=== PATIENT | female | born 1940 | race Caucasian/White ===

== ENCOUNTER 2024-06-08 16:02 | Emergency (ER) | payer MEDICARE, SELFPAY ==
[2024-06-08 16:11] VITALS: BP 141/72; PULSE 87; RESP 15; TEMP 36.4; O2SAT 96
--- NOTE | 2024-06-08 17:47 | ED.GENADULT ---
HPI - General Adult General Chief complaint: Dizziness Stated complaint: dizziness, Time Seen by Provider: 06/08/24 17:25 History of Present Illness HPI narrative: Patient is an 83-year-old female who presents ER with dizziness. Woke up from nap had sudden spinning. Makes her nauseous. Worse when she looks up to look at the TV. Has history of vertigo that was related from going from sitting to standing but this seems more intense. No chest pain or chest pressure. No focal weakness or numbness in arm or leg. Denies ringing in the ear. Related Data Allergies Allergy/AdvReac Type Severity Reaction Status Date / Time No Known Allergies Allergy Verified 06/08/24 17:49 Review of Systems Review of Systems: All systems reviewed & are unremarkable except as noted in HPI and below Constitutional: Constitutional: Reports no additional constitutional complaints ENT: Reports system reviewed and no additional complaints, except as documented Gastrointestinal: Gastrointestinal: Reports no additional gastrointestinal complaints Neurologic: Reports system reviewed and no additional complaints, except as documented PMFSH Surgical History Surgical History (Updated 06/08/24 @ 17:49 by Mynor Villanueva MD) History of carpal tunnel surgery History of hysterectomy Exam Narrative: GENERAL: Well-appearing, well-nourished, and in no acute distress. HEAD: Normocephalic, atraumatic. EYES: PERRL and EOMI. ENT: Mucous membranes moist. Cerumen impaction bilaterally. TMs normal after removal. CHEST: Clear to auscultation. No respiratory distress. HEART: Regular rate and rhythm. Normal peripheral pulses. EXTREMITIES: Normal range of motion. No edema. NEURO: No focal deficits. Alert and oriented x3. PSYCH: Normal mood and affect. Course Course Emergency Course: Cerumen removed with ear loop and warm water. Received meclizine. Patient is feeling improved. Ambulates with a steady gait. Vital Signs Vital signs: Vital Signs Temperature 97.6 F 06/08/24 16:11 Pulse Rate 87 06/08/24 16:11 Respiratory Rate 15 06/08/24 16:11 Blood Pressure 141/72 H 06/08/24 16:11 Pulse Oximetry 96 06/08/24 16:11 Temperature 97.6 F 06/08/24 16:11 Pulse Rate 68 06/08/24 17:49 Respiratory Rate 16 06/08/24 17:49 Blood Pressure 107/62 06/08/24 17:49 Pulse Oximetry 98 06/08/24 17:49 Procedures Ear Wax Removal Both Ears: Ear Wax Removal Date: 06/08/24 Ear Wax Removal Time: 17:48 Cerumenolytic Used: other (Warm tap water) Results: Re-examined: cerumen removed completely TM Examination: TM(s) intact, normal appearance Ear Canal Exam: atraumatic Patient Tolerated Procedure: well Complications: no problems Technique: ear canal irrigated and ear canal curetted Medical Decision Making Vital Signs Vital Signs: Vital Signs Temperature 97.6 F 06/08/24 16:11 Pulse Rate 87 06/08/24 16:11 Respiratory Rate 15 06/08/24 16:11 Blood Pressure 141/72 H 06/08/24 16:11 Pulse Oximetry 96 06/08/24 16:11 Temperature 97.6 F 06/08/24 16:11 Pulse Rate 68 06/08/24 17:49 Respiratory Rate 16 06/08/24 17:49 Blood Pressure 107/62 06/08/24 17:49 Pulse Oximetry 98 06/08/24 17:49 Discharge Plan Discharge Clinical Impression: Bilateral impacted cerumen, Vertigo Patient Disposition: Home, Self-Care Condition: Stable Instructions: Vertigo (ED) Additional Instructions: Return ER if you have fever 100.4? F, you cannot keep down food water, you lose consciousness, or have additional concerns. Patient Language: Kyrgyz Prescriptions: New meclizine 12.5 mg tablet 12.5 mg PO TID PRN (Reason: dizziness) Qty: 14 0RF Debrox 6.5 % drops 5 drp EACH EAR Q12H 4 Days Qty: 15 0RF Follow-up/Referrals: PHYSICIAN,FIBER PRODUCT CUTTING MACHINE OPERATOR [Primary Care Provider] - Km Nava MD [Physician] - 1 Week
[2024-06-08 17:49] VITALS: BP 107/62; PULSE 68; RESP 16; O2SAT 98
--- OUTSIDE RECORDS SUMMARY | 2024-06-08 18:19 | XMS_ITS | Continuity of Care Document ---
Author Organization [facility] Address [address] [place] [address] Phone Care Team Providers Care Line Out Worker Name Role Phone Sakshi Lazar MD Unavailable Unavailabl e Allergies, Adverse Reactions, Alerts Substance Reaction Status Criticality No Known Allergies Active No Inform ation Medications Medication Instructions Dosage Effective Dates (start - stop) Status Comments Arnuity Ellipta 100 mcg/actuation powder for inhalation inhale 1 puff by inhalation route every day at the same time each day 100 MCG - Active QVAR REDIHALER 40MCG ORALINH (120) INHALE 2 PUFFS BY MOUTH TWICE DAILY - Active FLOVENT HFA 44MCG ORAL INH 120INH INHALE 2 PUFFS BY MOUTH TWICE DAILY - Active azelastine 137 mcg (0.1 %) nasal spray aerosol spray 1 spray by intranasal route 2 times every day in each nostril 1 spray - Active ALBUTEROL HFA INH (200 PUFFS)8.5GM INHALE 2 PUFFS BY MOUTH EVERY 4 TO 6 HOURS NEEDED - Active ORTIKOS (unknown strength) take 1 capsule by oral route every day Not Available - Active VITAMIN D3 (unknown strength) Not Available - Active IMPOYZ (unknown strength) apply by topical route 2 times every day a thin layer to the affected area(s) ; rub in gently and completely Not Available - Active Arnuity Ellipta 100 mcg/actuation powder for inhalation inhale 1 puff by inhalation route every day at the same time each day 100 MCG - No Longer Active Procedures Procedure Date BREATHING CAPACITY TEST OFFICE/OUTPATIENT VISIT EST OFFICE/OUTPATIENT VISIT EST OFFICE/OUTPATIENT VISIT EST OFFICE/OUTPATIENT VISIT EST OFFICE/OUTPATIENT VISIT EST OFFICE/OUTPATIENT VISIT EST BREATHING CAPACITY TEST EXHALED NITRIC OXIDE BIJAL OFFICE/OUTPATIENT VISIT EST PERCUT ALLERGY SKIN TESTS EVALUATE PT USE OF INHALER EXHALED NITRIC OXIDE BIJAL BREATHING CAPACITY TEST OFFICE/OUTPATIENT VISIT NEW Advance Directives Directive Yes / No Effective Date File Name No Information Encounters Encounter Description Practice Location Reason(s) For Visit Diagnoses Date Provider Providers Copied on Encounter [facility] , [address] [facility] [address], [place], [address], tel:[phone] [facility] No Information 4 Nagi Hamsa. [address], [place], [place], [id number]. tel:[phone] [facility] , [address] [facility] [address], [place], [address], [place] tel:[phone] [facility] No Information 4 Nagi Hamsa. [address], [place], [place], [id number]. tel:[phone] [facility] , [address] [place] [facility] [address], [place], [address], [place] tel:[phone] [facility] No Information 4 Nagi Hamsa. [address], [place], [place], [id number]. tel:[phone] OFFICE/OUTPA TIENT VISIT EST [facility] , [address] [place] [facility] [address], [place], [address], [place] tel:[phone] [facility] Follow up (chief complaint) Moderate persistent asthma, uncomplicatedA llergic reaction to inhaled pollenOther allergic rhinitis 4 Nagi Hamsa. [address], [place], [place], [id number]. tel:[phone] [facility] , [address], [place], [address], [place] tel:[phone] [facility] No Information 4 Nagi Hamsa. [address], [place], [place], [id number]. tel:[phone] OFFICE/OUTPA TIENT VISIT EST [facility] , [address], [place], [address], [place] tel:[phone] [facility] Follow up (chief complaint) Mild intermittent asthma without complicationAl lergic reaction to inhaled pollen 4 Nagi Hamsa. [address], [place], [place], [id number]. tel:[phone] OFFICE/OUTPA TIENT VISIT EST [facility] , [address], [place], [address], [place] tel:[phone] [facility] f/u (chief complaint) Other allergic rhinitisMild intermittent asthma without complicationVa ccine counseling 3 Nagi Hamsa. [address], [place], [place], [id number]. tel:[phone] OFFICE/OUTPA TIENT VISIT EST [facility] , [address], [place], [address], [place] tel:[phone] [facility] Follow up (chief complaint) Body mass index [BMI] 25.0-25.9, adultMild intermittent asthma without complicationVo sunni cord dysfunctionOth er allergic rhinitisAllerg ic reaction to inhaled pollen 3 Nagi Hamsa. [address], [place], [place], [id number]. tel:[phone] [facility] , [address], [place], [address], [place] tel:[phone] [facility] No Information 3 Nagi Hamsa. [address], [place], [place], [address]. tel:[phone] OFFICE/OUTPA TIENT VISIT EST [facility] , [address], [place], [address], [place] tel:[phone] [facility] f/u and refills (chief complaint) Mild intermittent asthma without complicationOt her allergic rhinitisVocal cord dysfunction Oct-0 - 2 Nagi Hamsa. [address], [place], [place], [id number]. tel:[phone] OFFICE/OUTPA TIENT VISIT EST [facility] , [address] , [place], [address], [place] tel:[phone] [facility] f/u (chief complaint) Mild intermittent asthma without complicationPo st-nasal drainageVocal cord dysfunction Sep-1 0- 1 Nagi Hamsa. [address], [place], [place], [id number]. tel:[phone] OFFICE/OUTPA TIENT VISIT EST [facility] , [address] , [place], [address], [place] tel:[phone] [facility] Annual check-up (chief complaint) Mild intermittent asthma without complicationCo ughPost-nasal drainageOther allergic rhinitisVocal cord dysfunction Oct-2 - 0 Nagi Hamsa. [address], [place], [place], [id number]. tel:[phone] [facility] , [address] , [place], [address], [place] tel:[phone] [facility] Allergic reaction to inhaled pollenOther allergic rhinitisMild intermittent asthma without complication Mar-0 - 0 Nagi Hamsa. [address], [place], [place], [address]. tel:[phone] OFFICE/OUTPA TIENT VISIT NEW [facility] , [address] , [place], [address], [place] tel:[phone] [facility] allergy evaluation (chief complaint) Mild intermittent asthma without complicationOt her allergic rhinitisAllerg ic reaction to inhaled pollen 0 Nagi Cantor. [address], [place], [place], [address]. tel:[phone] Family History Family Member Type Diagnosis Age At Onset Mother Problem (finding) cancer of colon Father Problem (finding) Lymphoma (Cause Of Deat h) Immunizations Vaccine Date Status Comments Influenza, quadrivalent, hig h dose, injectable, split virus, preservative free, 0.7 mL dose, Fluzone High-Dose Quad administered Source: Other Provider SARS-COV-2 (COVID-19) vaccin e, mRNA, spike protein, LNP, preservative free, 30 mcg/0.3mL dose (Pfizer) administered Note: all 4 ; Source : Other Provider SARS-COV-2 (COVID-19) vaccin e, mRNA, spike protein, LNP, preservative free, 30 mcg/0.3mL dose (Pfizer) administered Source: Other Provid er Influenza, quadrivalent, hig h dose, injectable, split virus, preservative free, 0.7 mL dose, Fluzone High-Dose Quad administered Source: Other Provider influenza, injectable, quadrivalent, (3 years or older) administered Source: Other Provider Pneumococcal, PCV-13 administered Source: Other Provider Pneumonia administered Source: Other P rovider Payers Payer name Insurance type Covered constitution party ID Authoriza tion(s) Medicare E2 OT [id number] AARP E2 OT [id number] Social History Type Description Quantity Date Captured Comments Sex Female Smoking Status No Information Chief Complaint And Reason For Visit No Information Reason For Referral Reason For Referral No Information History Of Present Illness Encounter Date Complaint History Of Prese nt Illness Follow up 82 year old jj ent seen for a telehealth on 25 April extremely worried because the flovent 44 ?g will be soon discontinued from the market. I sent her dry powder inhaler.arnuity, extremely concerned about it because her grandson told her it can cause more coughing. Patient currently is doing well. Sleeps well at night. There is no asthma problems. Good appetite. She's limited to what she eats because of a history of colitis, and the recent attack lost close to 10 pounds. she has been avoiding a lot of red meat and cured meat since she lives in a nursing home facility is limited to how much she can eat in the cafeteria and has been trying to cook. She has been exercising without any difficulty.She takes a deep breath. She sometimes coughs up, but it is a dry cough not affecting quality of life. Her main concern is about the dry powder inhaler. Follow up 82 year old jj ent here for her telehealth. Patient has been reluctant because of the pandemic. To travel and come to physicians office up-to-date with her influenza, Covid, RSV vaccine. Patient is extremely worried because she read in the news.flovent 44 g will be discontinued in the market. Her pharmacist has switched it to.arnuity in spite of her rinsing her mouth after use, she does not like the dry powder inhaler because it is leaving a taste in her mouth and she's afraid she is going to swallow something. This fear stems from a very recent G.I. problem for which she was in the hospital and was diagnosed with lymphocytic colitis and was asked to follow a very limited diet. She has not had any need for albuterol her rescue inhaler for the colitis patient is on an extended release budesonide tablet. Patient has become active walk around the house. No difficulty breathing no shortness of breath. She's extremely worried about me switching her medication which has kept her asthma under control. f/u This is a telehe alth visit for patient, overall she feels she is doing better. Patient has Flovent 44 g which has really helped and would like a refill. She is using it. As scheduled 2 puffs twice a day, remembers to rinse her mouth after use. Patient has absolutely no difficulty swallowing or changes in her voice. On this regimen, she has not needed the albuterol at all.With her previous visit, I had discontinued the montelukast, and she has felt no different.She also uses intranasal azelastine mainly as needed for symptoms of post, nasal drainage, and sinus congestion and that seems to be working.Recently, she has had a lot of G.I. symptoms and has been diagnosed with lymphocytic colitis. Treated with prednisone.This is the reason she could not get her pulmonary function test in the hospital, her primary care physician plans to send request.Recently, diagnosed with Covid overall is doing well, except she still has fatigue. Follow up Patient is here for a follow up. She was seen with symptoms of asthma, which according to her is doing very well. She is very regular with her 44 g Flovent, which she uses every single day, twice a day, she also remembers to rinse her mouth after use. She has a rescue inhaler with her that she has not needed in a very long time. She has the nasal spray Asselin, but she is also regular wet, using it twice a day, no bloody nose in winter.By allergy skin test, patient was allergic to dust, Tree, pollen and weed mix. She has a new primary care physician, up-to-date with her influenza vaccine and five Covid vaccines. Coughing if at all is very mild with mild postnasal drainage, sometimes she feels she has to constantly clear her throat. f/u and refills 81 year old jj ent last seen in a valuated approximately one year ago, is doing a telehealth because she is still uncomfortable post pandemic driving long distances and coming into public doctors offices. Overall she has been doing very well without any problems. Her asthma is considered as stable and under control. She learned out of her Flovent two weeks ago, prior to that she started using it once a day but immediately noticed she has needed her rescue inhaler. No nocturnal asthma.She has received her influenza vaccine for this year, she has received a total of four Covid vaccines. No changes in her allergies. Montelukast has worked so well for her that she would also like a refill. When I asked about side effects especially depression, anxiety and mood swings she admits she was not doing very well in summer but I attribute that to the pandemic and would like to continue with the montelukast.No bloody nose she is very regular with azelastine If she does not use it she feels congested. Sleep is good. Mild cough because she has no Flovent. Occasionally she takes Mucinex. I have not done the pulmonary function test in a very long time, patient states she will be seeing her primary care physician tomorrow. f/u Patient is here for a follow up, she was last seen approximately one year ago. She's very happy with the current regimen, no asthma like symptoms and the cough is gone. She is using her Flovent 44 g two puffs twice a day and rinse her mouth after use. She's also continuing 10 mg of montelukast and request a refill. She has no side effects from either. Her voice is hoarse but it is unrelated to the Flovent. 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 She does not sleep well but that is not related to her respiratory issues. She is just restless. She is up-to-date with her Covid vaccine and plans to get her influenza vaccine soon. Annual check-up this is a f/u - was last seen in June , after that she devolved low back pain- she was seen by an ortho and then by a neurosurgeon , she had surgery on December 08 - decompression and discectomy of lower lumbar area, and it helped a lot and the pain is better , she is currently in [facility] seen PCP , in november had blood work and all was normal She described her asthma as stable , controlled very well , she is very methodist about the flovent 44 mcg which she takes AM and PM , she was on and ran out of the Montelukast which she was tawing once at bed time, she has a cough -it is a dry cough , takes mucinex - cough does not affect her sleep .no chest tightness and she has some wheezing , she has no heart burn or indigestion she has an occasional , with weather changes , sinus pressure sense of smell is fine no bloody nose- was on a nasal spray , stopped it due to nose bleeds allergy evaluation here as she h as allergy issues and asthma in the past 2 years ,had them as a child was on SCIT and was fine for a long time, - cold, sinus infection and bronchitis she has asthma, symptoms include -night symptoms, chest tightness and difficulty breathing , cough is not a big concern, can have wheezing, no hospitalization, was treated with steroid , antibiotic , is on Flovent 44 mcg and proair - has not needed since 2018-nasal congestion , seasonal fall more than symptoms, can also has a runny nose, post nasal drainage , lately she has had sneezing and itchy and water eyes ,- symptoms are worse since the dog was introduced last jan 2019 , sneezing is worse - quit smoking 50 year sago , chest x ray last was done at PCP- normal - was diagnosed psoriasis of scalp , eczema - face and hands diagnosed - by supervisor beam department- she uses topical meds - occasionally heart burn - lactose intolerant but no food allergies Functional Status Date Functional Assessmen t No Information Instructions Date Instruction Additional Infor yanet Giving encouragement to exercise Related to Body mass index [BMI] 25.0-25.9, adult to use the nose spra y - she will blow nose, bend down and point nose spray towards ear (outer aspect), wait 10 sec and redo on both sides, stop nose spray if she has nose bleeds Related to Post-nasal drainage f/u in 4 weeks Related to Aller gic reaction to inhaled pollen Patient was taught h ow to use an Inhaler, first of all to stand, then take a puff with a spacer and then take a deep breath and hold it for 10 seconds followed by exhalation and then to repeat the second puff, patient was also told to rinse mouth after use Related to Mild intermittent asthma without complication How to use an inhale r instruction provided. Related to Mild intermittent asthma without complication Environmental counseling provide d. Related to Other allergic rhinitis Instructions given for nose spra y. Related to Other allergic rhinitis Assessments Type Assessment Date No Information Patient Care Teams Name Effective Dates (start - stop) Status Members No Information
--- OUTSIDE RECORDS SUMMARY | 2024-06-08 18:19 | XMS_ITS | Encounter Summary ---
Author Organization [facility] Address [address] [place] [address] Care Team Providers Care Hydrologic Engineer Name Role Phone Arcelia Rodriguez APRN-SILICA FILTER OPERATOR Primary Care Provi reese Mayra Smith RN Unavailable Unavailable Pankaj Braun MD Primary Care Provider Reason for Visit * Reason Onset Date Comments MEDICATION REFILL 12/20/2019 Encounter Details Date Type Department Care Team (Late Contact Info) Description 12/20/2019 Refill [facility] [address] [place] [address] [place] [address] [place] [address] [place] [id number] MEDICATION REFILL Social History Tobacco Use Types Packs/Day Years Used Date Smoking Tobacco: Former Smokeless Tobacco: Former Alcohol Use Standard Drinks/Week Comments No 0 (1 standard drink = 0.6 oz pur e alcohol) Sex and Gender Information Value Date Recorded Sex Assigned at Not on file Gender Identity Not on file Sexual Orientation Not on file documented as of this encounter Plan of Treatment Upcoming Encounters Date Type Department Care Team (Late Contact Info) Description 09/16/2024 11:30 AM CDT Office Visit [facility] [address] [place] [address], [place] [id number] Lane Loja MD [address] [place] [address] documented as of this encounter Visit Diagnoses Diagnosis Other psoriasis documented in this encounter Care Teams Hydrologic Engineer Relationship Specialty Start Date End Date Arcelia Rodriguez APRN-SILICA FILTER OPERATOR PCP - General 08/23/17 12/24/22 Pankaj Braun MD [address] [id number] PCP - General Family Medicine 12/25/22 Mayra Smith, survey cad technicianLipstick Molder 11/25/19 documented as of this encounter
--- OUTSIDE RECORDS SUMMARY | 2024-06-08 18:19 | XMS_ITS ---
Author Organization [facility] Address [address] [place] [address] Care Team Providers Care Reclamation Engineer Name Role Phone Mayra Smith RN Unavailable Unavailable Pankaj Braun MD Primary Care Provider Active Problems Problem Noted Date Diagnosed Date Microscopic colitis 06/19/2022 12/25/2022 Overview (12/25/2022): Last Assessment & Plan: Diagnosed on colonoscopy from 05/2022. Diarrhea resolved after starting budesonide 9 mg daily. Currently weaned down to 6 mg with no recurrence of diarrhea. We will continue budesonide 6 mg for a month then decrease to 3 mg daily for 1 more month before stopping. Hopefully her diarrhea does not come back but if it does then we will have to most likely restart budesonide again, at that point I will restart with the lowest dose of 3 mg daily. Family history of colon cancer in mother 023 12/25/2022 Fecal smearing 05/28/2022 12/25/2022 Hepatic cyst 05/28/2022 12/25/2022 Overview (12/25/2022): Last Assessment & Plan: Multiple liver cysts Noted incidentally on CT from 04/2022. We will discuss with patient regarding multiphase MRI next visit Tubular adenoma of colon 05/28/2022 023 Overview (12/25/2022): Last Assessment & Plan: Two tubular adenomas on colonoscopies 2016. Mother with colon cancer in her late 70s. Patient due for surveillance we will order colonoscopy Encounter for medical examination to establish c are 05/20/2021 Overview (06/20/2021): Last Assessment & Plan: A initial well visit to establish care has been performed today. Ling Kebede is not up to date on screening tests. She is in need of DEXA- these have been ordered. She is not up to date on needed preventative vaccinations; She is in need of Tdap/Td. These have been ordered/arranged unless otherwise indicated. Augmentin trial Continue Mucinex DM Consider starting Flonase x 2 weeks as well Will look into getting echocardiogram Carotid ultrasound- no bruits noted on exam, but we will consider d/t the history Continuing current regimen otherwise, for now Allergic reaction to pollen 05/17/2021 Mild intermittent asthma 05/17/2021 Nasal discharge 05/17/2021 H/O retinal vein occlusion 01/13/2021 Overview (01/13/2021): Followed in [facility] Clinic in [facility] Closed head injury 11/21/2020 Subdural hematoma 11/21/2020 Pain in right hip 03/21/2020 Low back pain 01/06/2020 Muscle weakness (generalized) 01/06/2020 Pain management contract signed--11/201911/23/19 20 Spinal stenosis of lumbar region 10/07/2019 Seborrheic keratoses, inflamed 06/03/2018 Assessment & Plan (05/30/2020 2:41 PM OUTBOUND SALES SPECIALIST): Destruction of large SK left cheek and left chest with curette after discussion about scarring, infection, and recurrence Vocal cord dysfunction 01/13/2018 Mild persistent asthma without complication 12/22 Non-seasonal allergic rhinitis 01/13/2018 Overview (06/23/2018): 01/13/2018 SPT + cat, dog, mouse, cockroach, grass, tree, and alternaria Gustatory rhinitis 01/13/2018 Gastroesophageal reflux disease 01/13/2018 Dermatographism 01/13/2018 Other psoriasis 10/18/2017 Assessment & Plan (11/29/2020 3:04 PM CDT): Doing well Continue dovonex , betamethasone lotion , protopic ointment fluocinolone scalp Assessment & Plan (05/30/2020 2:40 PM OUTBOUND SALES SPECIALIST): Scalp Recent flare post back surgery has calmed down Fluocinolone oil prn Betamethasone lotion dovonex solution History of skin cancer in adulthood 10/16/2017 Assessment & Plan (11/29/2020 3:03 PM CDT): No evidence of reoccurrence on exam today Self exams Photoprotection including SPF 30+ daily Assessment & Plan (05/30/2020 2:39 PM OUTBOUND SALES SPECIALIST): NER Skin exams Photoprotection 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 Eczema 04/17/2010 AK (actinic keratosis) 04/17/2010 Eczema of eyelid 04/07/2010 Carpal tunnel syndrome of left wrist Cervical radiculopathy at C7 Current Oncology Plans No current plan information found. Past Plans No past plan information found. Radiation Treatments * No radiation treatments are documented for this patient in [facility]. Treatments may have been administered in another system. Lifetime Dose Tracking * Chemical Lifetime Dose Automatic Entry Manual Entr y Dose Length Product 760 mGy-cm 760 mGy-cm 0 mGy-cm Resolved Problems Problem Noted Date Diagnosed Date Resolved Date Diarrhea 05/28/2022 12/25/2022 01/22/2023 Overview (12/25/2022): Last Assessment & Plan: New issues started about 2 weeks ago started with changes in stool caliber that progressed to explosive diarrhea associated with rare fecal incontinence. No hematochezia or melena. Occurs after almost every meal. 3 lb weight loss over the last 2 weeks due to decreased oral intake. Has chronic intermittent abdominal pain that has not worsened with the diarrhea. Daily NSAID use. Family history of mother with colon cancer in her late 70s. Last colonoscopy from 2015 showed 2 tubular adenomas. C diff, stool culture, Giardia,Cryptosporidium and fecal leukocytes negative. Normal CBC and CMP 04/2022. CT abdomen pelvis with contrast 04/2022 showed small left lower quadrant ventral hernia with no other acute findings in GI tract. Multiple cysts throughout the liver thought to be benign in appearance. ddx include malignancy, IBS, microscopic colitis, lactose intolerance, celiac disease, sibo, IBD Plan Schedule colonoscopy Check inflammatory markers and celiac panel Cough 05/17/2021 07/18/2021 Squamous cell carcinoma in situ of skin 10/16/2017 01/13/2018 Hyperlipidemia 06/02/2010 05/09/2018
--- OUTSIDE RECORDS SUMMARY | 2024-06-08 18:19 | XMS_ITS | Referral Summary ---
Author Organization [facility] [address] Address [address] [place] [id number] Care Team Providers Care Beet Worker Name Role Phone Pankaj Braun MD Primary Care Provider [phone] Clara Montano Unavailable [phone] Sakshi Lazar MD Unavailable [phone] Carlos Lakhani MD Unavailable Encounters Date Type Department Care Team Description 06/08/2024 Telephone [facility] Care at [address] [id number] Pankaj Braun MD 05/12/2024 12:48 PM MIXER [facility]AGMAN - 05/12/2024 11:59 PM [facility] Hospital Encounter [facility] [address] [place] [address] Chronic abdominal pain; Liver cyst Discharge Disposition: Discharge to home or self care 05/11/2024 Telephone [facility] Gastroenterology at [address] [place] [phone] Stacy Cabrera MA 05/01/2024 Telephone [facility] Gastroenterology at [address] [place] [phone] Cherelle Forbes LPN 04/28/2024 1:00 PM [facility] Office Visit [facility] Gastroenterology at [address] [place] [phone] Carlos Lakhani MD Lymphocytic colitis (Primary Dx); Chronic abdominal pain; Liver cyst 03/10/2024 10:30 AM M[facility]ER [facility]AGMAN - 03/10/2024 11:59 PM [facility] Hospital Encounter [facility] Nutrition and Diabetic Education 1 [facility] Room [address] [place] [id number] Bowden, Tanika Jarrell, RD Macrocytosis; Weight loss Discharge Disposition: Discharge to home or self care from Last 3 Months Allergies No known active allergies Medications cholecalciferol (VITAMIN D-3) 90039 unit tablet Take 1 tablet (10,000 Units total) by mouth once a week Active flaxseed oiL 1,000 mg capsule Take 2 capsules (2,000 mg total) by mouth daily Active clobetasoL (TEMOVATE) 0.05 % ointment Apply 0.5 Applications topically 2 (two) times a day 05/30/19 21 Active calcipotriene (DOVONOX) 0.005 % solution 05/30/19 21 Active azelastine (ASTELIN) 137 mcg (0.1 %) nasal spray 05/27/19 21 Active albuterol HFA (PROVENTIL HFA,VENTOLIN HFA,PROAIR HFA) 90 mcg/actuation inhalerIndicati ons:Asthma, unspecified asthma severity, unspecified whether complicated, unspecified whether persistent Inhale 2 puffs every 4 (four) hours as needed for wheezing or shortness of breath 1 each 04/28/19 22 Active tacrolimus (PROTOPIC) 0.1 % ointment 05/02/19 22 Active betamethasone dipropionate (DIPROLENE) 0.05 % lotion 02/03/20 22 Active ketoconazole (NIZORAL) 2 % shampoo Apply topically once a week 11/10/19 23 Active triamcinolone (KENALOG) 0.1 % cream Apply topically 2 (two) times a day 11/23/19 23 Active Arnuity Ellipta 100 mcg/actuation inhaler Inhale 1 puff 04/12/20 23 Active meclizine (ANTIVERT) 12.5 mg tabletIndicatio ns:Motion Sickness,Vertig o Take 1 tablet (12.5 mg total) by mouth 3 (three) times a day as needed for dizziness 30 tablet 1 10/29/19 24 Active Additional Information Patient not taking.Reported on 04/28/2024 fluorouraciL (EFUDEX) 5 % cream Apply topically 2 (two) times a day Active atorvastatin (LIPITOR) 20 mg tablet TAKE 1 TABLET(20 MG) BY MOUTH DAILY 90 tablet 2 05/26/19 25 Active atorvastatin (LIPITOR) 20 mg tablet Take 1 tablet (20 mg total) by mouth daily 90 tablet 2 07/26/19 24 2024 Discontinued Active Problems Problem Noted Date Diagnosed Date Chronic abdominal pain 05/01/2024 Vaccine counseling 10/29/2023 Microscopic colitis 06/19/2022 Assessment & Plan (03/15/2023 6:52 AM MIXER SLAGMAN): Diagnosed on colonoscopy from 05/2022. Diarrhea resolved after starting budesonide. Finished budesonide end of November. However recently noticing more loose stools off and on over the past month, about twice a day, also noticing some rectal light brown discharge, no hematochezia or melena. Occasional left sided abdominal pain, CT A/P with contrast from 04/2022 showed tiny left lower quadrant ventral abdominal wall hernia containing a small amount of nonobstructed small bowel Interval labs from 10/2022 showed normal CMP, CBC, lipid panel Plan Patient would like to defer restarting budesonide at this time unless symptoms become worse Can take imodium and pepto bismol as needed for diarrhea Trial of probiotics Assessment & Plan (09/14/2022 5:55 PM CDT): Diagnosed on colonoscopy from 05/2022. Diarrhea resolved [...] the lowest dose of 3 mg daily. Diarrhea 05/28/2022 Assessment & Plan (10/23/2023 8:53 PM CDT): Since last visit, had worsening diarrhea around 05/2023, lost about 6 lbs that time and was restarted on budesonide 3 mg daily and took for 3 months. Diarrhea overall controlled with average of 2 bm daily with varying consistency but mostly soft and pasty but did have one bad day of diarrhea yesterday after eating salad at restaurant consisting of iceberg lettuce, goat cheese and beets. Had one episode of rectal leakage with loose stool recently as well. Occasional left sided pain preceding a bowel movement. Labs from 04/2023 showed mildly elevated BUN of 29 and calcium 10.6 otherwise normal lipid panel, TSH. Chronic macrocytosis without anemia. Plan Add daily fiber supplement to help with rectal leakage Discussed trial of pepto bismol for 2 weeks if diarrhea worsens as second line treatment for microscopic colitis given less side effects compared to budesonide Patient feels like a lot of her symptoms are diet related and would like to be referred to warehouse guard, referral placed Patient also concerned about not getting enough nutrition with her diet and is worried about not gaining enough weight, in addition to nutrition referral will also check B12 and folate given chronic macrocytosis Assessment & Plan (03/15/2023 6:57 AM MIXER SLAGMAN): 2/2 lymphocytic colitis diagnosed on colonoscopy from 05/2022 C diff, stool culture, Giardia,Cryptosporidium and fecal leukocytes, celiac, ESR, CRP previously negative CT abdomen pelvis with contrast 04/2022 showed small left lower quadrant ventral hernia with no other acute findings in GI tract. Multiple cysts throughout the liver thought to be benign in appearance Initially responded well to budesonide, tapered off 11/2022 Recently noticing more loose stools off and on over the past month, about twice a day, also noticing some rectal light brown discharge, no hematochezia or melena. Plan Patient would like to defer restarting budesonide at this time unless symptoms become worse Can take imodium and pepto bismol as needed for diarrhea Trial of probiotics Assessment & Plan (05/28/2022 3:53 PM MIXER SLAGMAN): New issues started about 2 weeks ago [...] in her late 70s. Last colonoscopy from 2016 showed 2 tubular adenomas. C diff, stool [...] colonoscopy Check inflammatory markers and celiac panel Change in bowel habits 05/28/2022 Family history of colon cancer in mother 023 Fecal smearing 05/28/2022 Tubular adenoma of colon 05/28/2022 Assessment & Plan (03/15/2023 6:55 AM MIXER SLAGMAN): Two tubular adenomas on colonoscopies 2016. Repeat colonoscopy 05/2022 with one 2mm tubular adenoma. Mother with colon cancer in her late 70s. Given age will defer further colon cancer surveillance. Assessment & Plan (05/28/2022 3:52 PM MIXER SLAGMAN): Two tubular adenomas on colonoscopies 2016. Mother with colon cancer in her late 70s. Patient due for surveillance we will order colonoscopy Liver cyst 05/28/2022 Assessment & Plan (05/28/2022 3:56 PM MIXER SLAGMAN): Multiple liver cysts Noted incidentally on CT from 04/2022. We will discuss with patient regarding multiphase MRI next visit Encounter for Medicare annual wellness exam 11/2021 Assessment & Plan (05/08/2023 9:57 AM MIXER SLAGMAN): A(n) yearly Medicare Annual Wellness Visit has been performed today. Ling Kebede is not up to date on screening tests. She is in need of DEXA. She is not up to date on needed preventative vaccinations; She is in need of Tdap/Td, Influenza, and Covid-19 (booster). We discussed healthy lifestyle habits, educational material has been given. Medications reviewed, changes documented as per the medical record and discussed with patient along with risks vs benefits. Awaiting labs Encouraged better hydration; fall likely due to vasovagal causes or volume causes BP runs low Perhaps Pedialyte or Powerade once or so a day (don't go too far) Will want to do PT to help with balance, leg strengthening; she will provide me with the desired provider Return in 6 months Assessment & Plan (01/27/2022 2:25 PM CDT): A(n) yearly Medicare Annual Wellness Visit has been performed today. Ling Kebede is not up to date on screening tests. She is in need of DEXA- pending. She is up to date on needed preventative vaccinations Mixed hyperlipidemia 07/26/2021 Assessment & Plan (06/22/2022 3:07 PM MIXER SLAGMAN): Continue diet as tolerated; protein intake should be emphasized Ensure as meal supplement is okay, 1/2-1 can between meals 1-2ce a day May begin regular exercise with light weight as before Continuing atorvastatin Assessment & Plan (05/04/2022 10:40 AM MIXER SLAGMAN): LDL is 84 mg/dL Under control, will continue atorvastatin 20 mg daily No side effects reported Liver enzymes are within range Assessment & Plan (07/26/2021 1:01 PM CDT): Cholesterol pretty well put right now. Continue atorvastatin Carotid ultrasound re-ordered, to check against previous (if possible, we will need to get the record) BP is nicely placed Continuing vitamin D; encouraged to start vitamin B12 1000 mcg per day as well Labs ordered for next visit History of retinal vein occlusion 07/24/2021 Encounter for medical examination to establish c are 05/20/2021 Assessment & Plan (05/20/2021 1:52 PM MIXER SLAGMAN): A initial well visit to establish care [...] for now Allergic reaction to pollen 05/17/2021 Carpal tunnel syndrome on left 05/17/2021 Cervical radiculopathy at C7 05/17/2021 Cough 05/17/2021 Mild intermittent asthma 05/17/2021 Nasal discharge 05/17/2021 Closed head injury 11/21/2020 Subdural hematoma 11/21/2020 Pain in right hip 03/21/2020 Low back pain 01/06/2020 Muscle weakness (generalized) 01/06/2020 Spinal stenosis of lumbar region 10/07/2019 Seborrheic keratoses, inflamed 06/03/2018 Overview (05/17/2021): Last Assessment & Plan: Destruction of large SK left cheek and left chest with curette after discussion about scarring, infection, and recurrence Dermatographism 01/13/2018 Gastroesophageal reflux disease 01/13/2018 Assessment & Plan (05/04/2022 10:40 AM MIXER SLAGMAN): Symptoms are low level No prescription therapy currently Will do a trial of dicyclomine for abdominal cramping noted in the evening time mostly; if worsen we will revisit Gustatory rhinitis 01/13/2018 Mild persistent asthma without complication 12/22 Assessment & Plan (10/27/2021 6:20 PM CDT): Continuing current regimen Will plan for medicare visit in 3 months, get on track with that Labs reviewed. Cholesterol panel is in good shape. 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 Assessment & Plan (09/14/2022 5:58 PM CDT): Patient also has a some concerns regarding inability to gain weight. We will check TSH and PTH to rule out any endocrine abnormalities. She previously has had intermittently elevated calcium level, most recently from 05/2022. Also hx of goiters Eczema 04/17/2010 Eczema of eyelid 04/07/2010 Immunizations Immunization Administration Dates Next Due COVID-19 mRNA ([employer]) 0.3 m L (30 mcg) vaccine (12 years and up) 03/04/2023 DT 01/21/2004,04/22/1993 Flucelvax Influenza Quad 02/22/2012 Influenza, Quad, Adjuvantate d, Intramuscular 02/08/2023 Influenza, Quadrivalent, Hig h Dose, Preservative Free, Intrr 01/25/2022,01/07/2022,01/27/2020 Influenza, Quadrivalent, Spl it, Intramuscular 01/20/2015 Influenza, Trivalent, High D ose, Split, Preservative Free, Intramuscular 01/29/2018,03/07/2017,01/26/2016,02/21 Influenza, Trivalent, IM (MDV) 12/23/2010,2009 Influenza, Unspecified 02/18/2023,2021,01/09/2021,01/27,01/07/2019 MMR 08/09/2018 Pfizer SARS-CoV-2 Monovalent Vaccination (12+ Yrs) PURPLE 01/25/2022,04/27/2021,06/09/2020,05/19 Pneumococcal Conjugate PCV 13 06/08/2014 Pneumococcal Polysaccharide PPV23 01/20/2015,04/2006 RSV Vaccine, Pref, Recombina nt, Subunit, Adjuvanted, PF, IM (Arexvy) 01/11/2023 TD Preservative Free 02/14/2004 ZOSTER LIVE 01/25/2012 ZOSTER Recombinant 06/07/2018,11/09/2017 Social History Tobacco Use Types Packs/Day Years Used Date Smoking Tobacco: Former Cigarettes 0 04/22/1959 - 04/22/1961 Passive Smoke Exposure: Past Smokeless Tobacco: Never Tobacco Cessation:Counseling Given: Not Answered AUDIT-C Answer Date Recorded Q1: How often do you have a drink containing alc ohol? Never 04/28/2024 Average Number of Drinks Not on file 025 Frequency of Binge Drinking Not on file 10/2024 PHQ-2 Answer Date Recorded PHQ-2 Total Score (If total score is 3 or more points, staff should administer the PHQ-9) 0 10/29/2023 Exercise Vital Sign Answer Date Recorde d On average, how many days pe r week do you engage in moderate to strenuous exercise (like a brisk walk)? 3 days Minutes of Exercise per Session Not on file 05/17/2021 Personal Safety Answer Date Recorded Getting School Help Needed Denies 04/13 Education Answer Date Recorded What is the highest level of school you have completed or the highest degree you have received? 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 Not on file Last Filed Vital Signs Vital Sign Reading Time Taken Comments Blood Pressure 103/59 04/28/2024 1:14 PM MIXER SLAGMAN Pulse 82 04/28/2024 1:14 PM MIXER SLAGMAN Temperature 36 C (96.8 F) 10/29/2023 10:39 AM CDT Respiratory Rate 18 10/29/2023 10:39 AM CDT Oxygen Saturation 96% 04/28/2024 1:14 PM MIXER SLAGMAN Inhaled Oxygen Concentration - - Weight 52.2 kg (115 lb) 05/06/2024 1:49 PM MIXER SLAGMAN Height 149.9 cm (4' 11 ) 04/28/2024 1:14 PM MIXER SLAGMAN Body Mass Index 23.23 04/28/2024 1:14 PM MIXER SLAGMAN Plan of Treatment Not on file Procedures Procedure Name Priority Date/Time Associated Diagnosis Comments MRI ABDOMEN LIVER W WO CONTRAST Schedule Routine, Read Routine (OP Routine) 05/12/2024 2:13 PM MIXER SLAGMAN Chronic abdominal pain Liver cyst DEXA AXIAL SKELETON BONE DENSITY 1 OR MORE SITES Schedule Routine, Read Routine (OP Routine) 05/16/2023 9:59 AM MIXER SLAGMAN Screening for osteoporosis assisted current use of inhaled steroid from Last 3 Months or Most Recently Relevant to Health Maintenance Results * MRI Abdomen Liver W WO Contrast (05/12/2024 2:13 PM MIXER SLAGMAN) Anatomical Region Laterality Modality Body N/A Magnetic Resonan ce 05/12/2024 2:23 PM MIXER SLAGMAN Narrative 05/12/2024 2:38 PM MIXER SLAGMAN EXAM DESCRIPTION: MRI ABDOMEN LIVER W WO CONTRAST REASON FOR STUDY: hepatic cyst Ct exam showed cysts / following up with an mri / pt has a history of colitis TECHNIQUE: MRI of the abdomen performed without and with intravenous contrast according to the liver protocol. All images stored on PACS. 3D MIP images rendered on scanning unit and reviewed at time of interpretation. CONTRAST TYPE/DOSE: 10mL of GADOTERATE MEGLUMINE 0.5 MMOL/ML INTRAVENOUS SOLUTION (SO) injected via intravenous COMPARISON: 05/22/2022 FINDINGS: LOWER CHEST: The heart size is stable. There is no definite evidence of a pericardial effusion. There is mild bibasilar subsegmental atelectasis. LIVER: The liver is grossly stable in size and contour. The hepatic and portal veins are grossly patent. There are couple of wedge-shaped fluid-filled lesions noted in the right hepatic lobe, which are overall grossly similar to prior CT dated 05/22/2022, and likely represent collapsed hepatic cysts. The previously visualized likely collapsed cyst in the posterior right hepatic lobe measures 2.8 by 1.4 cm, which previously measured 2.9 by 1.5 cm (axial image 7). The previously visualized wedge-shaped fluid-filled lesion in the lateral right hepatic dome measures 2.8 by 2.3 cm, which previously measured 3.3 by 2.6 cm (axial T2 image 5). There is a cyst noted anterior aspect of segment 4A of the liver measuring 5.3 cm, which previously measured up to 11.3 cm and demonstrates T1 signal on the precontrast sequence greater than a simple cysts without definite evidence of abnormal enhancement or mural nodularity, and therefore likely represents a partially collapsed hepatic cyst containing proteinaceous/hemorrhagic debris. There are multiple additional cysts noted in the liver, some of which are mildly complicated with thin nonenhancing septations and lobulations. For example, there is mildly lobulated septated cyst in the anterior right hepatic lobe measuring 5.6 x 5.4 cm (axial T2 image 15). There is no definite evidence of abnormal enhancement or mural nodularity within these cysts. GALLBLADDER: The gallbladder appears grossly unremarkable without definite MRI evidence of cholelithiasis, gallbladder wall thickening, or pericholecystic fluid. BILE DUCTS: There is no definite evidence of intrahepatic or extrahepatic biliary ductal dilatation. Common bile duct measures 0.4 cm in diameter. There is no definite evidence of filling defect within the common bile duct to suggest choledocholithiasis. SPLEEN: The spleen is grossly stable in size and unremarkable. PANCREAS: The pancreatic duct measures 0.3 cm in the pancreatic head, which is within normal limits. There is no definite MRI evidence of peripancreatic inflammatory changes or peripancreatic fluid collection. 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 For example, there is cystic lesion noted in the pancreatic head measuring 0.7 cm, which likely communicates with the main pancreatic duct (coronal T2 image 13, axial T2 image 18). There is a cystic lesion noted in the pancreatic neck measuring 0.5 cm (axial T2 image 14). ADRENALS: The bilateral adrenal glands are grossly stable and unremarkable. KIDNEYS/URINARY TRACT: The kidneys are grossly stable in size. The bilateral kidneys enhance symmetrically. There are scattered subcentimeter simple appearing cysts in the bilateral kidneys with the largest measuring 0.4 cm on the right and 0.8 cm on the left, which do not require follow-up imaging. There is no definite evidence of hydronephrosis. GI: The visualized bowel appears grossly unremarkable. There is no definite evidence of free fluid in the abdomen. There is no definite MRI evidence of abdominal lymphadenopathy. MUSCULOSKELETAL: There is an S shaped scoliotic curvature of the spine with degenerative changes. OTHER: No other abnormality. IMPRESSION: Redemonstration of multiple cysts in the liver, some of which are mildly complicated with thin nonenhancing septations and lobulations. The largest cyst in segment 4A of the liver has decreased in size in comparison to the prior study, and therefore likely represents a partially collapsed hepatic cyst containing proteinaceous/hemorrhagic debris. Continued attention on follow-up imaging is recommended as clinically indicated. Couple of wedge-shaped fluid-filled lesions in the right hepatic lobe, which are overall grossly similar to prior CT dated 05/22/2022, and likely represent collapsed hepatic cysts. Continued attention on follow-up imaging is recommended as clinically indicated. 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 Follow-up MRI/MRCP in 1 year is recommended to assess for stability as clinically indicated. THIS IS AN ELECTRONICALLY VERIFIED FINAL REPORT 05/12/2024 2:38 PM - Electronically signed by Amy Jones D.O. PS: PS Report ID: [id number] Reading Location: [id number] Procedure Note Amy Jones DO - 05/12/2024 EXAM DESCRIPTION: MRI ABDOMEN LIVER W WO CONTRAST REASON FOR STUDY: hepatic cyst Ct exam showed cysts / following up with an mri / pt has a history ofcolitis TECHNIQUE: MRI of the abdomen performed without and with intravenous contrast according to the liver protocol. All images stored on PACS.3D MIP images rendered on scanning unit and reviewed at time ofinterpretation. CONTRAST TYPE/DOSE: 10mL of GADOTERATE MEGLUMINE 0.5 MMOL/ML INTRAVENOUS SOLUTION (SO) injected via intravenous COMPARISON: 05/22/2022 FINDINGS: LOWER CHEST: The heart size is stable. There is no definite evidence ofa pericardial effusion. There is mild bibasilar subsegmental atelectasis. LIVER: The liver is grossly stable in size and contour. The hepatic and portal veins are grossly patent. There are couple of wedge-shaped fluid-filled lesions noted in the right hepatic lobe, which are overall grossly similar to prior CT dated05/22/2022, and likely represent collapsed hepatic cysts. The previously visualized likely collapsed cyst in the posterior right hepatic lobe measures 2.8 by1.4 cm, which previously measured 2.9 by 1.5 cm (axial image 7). Thepreviously visualized wedge-shaped fluid-filled lesion in the lateral right hepaticdome measures 2.8 by 2.3 cm, which previously measured 3.3 by 2.6 cm (axial T2 image 5). There is a cyst noted anterior aspect of segment 4A of the liver measuring5.3 cm, which previously measured up to 11.3 cm and demonstrates T1 signal onthe precontrast sequence greater than a simple cysts without definite evidenceof abnormal enhancement or mural nodularity, and therefore likely representsa partially collapsed hepatic cyst containing proteinaceous/hemorrhagicdebris. There are multiple additional cysts noted in the liver, some of which are mildly complicated with thin nonenhancing septations and lobulations. For example, there is mildly lobulated septated cyst in the anterior righthepatic lobe measuring 5.6 x 5.4 cm (axial T2 image 15). There is no definite evidence of abnormal enhancement or mural nodularity within these cysts. GALLBLADDER: The gallbladder appears grossly unremarkable withoutdefinite MRI evidence of cholelithiasis, gallbladder wall thickening, or pericholecystic fluid. BILE DUCTS: There is no definite evidence of intrahepatic orextrahepatic biliary ductal dilatation. Common bile duct measures 0.4 cm in diameter. There is no definite evidence of filling defect within the common bileduct to suggest choledocholithiasis. SPLEEN: The spleen is grossly stable in size and unremarkable. PANCREAS: The pancreatic duct measures 0.3 cm in the pancreatic head,which is within normal limits. There is no definite MRI evidence ofperipancreatic inflammatory changes or peripancreatic fluid collection. 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 For example, there is cystic lesion noted in the pancreatic head measuring 0.7cm, which likely communicates with the main pancreatic duct (coronal T2 image13, axial T2 image 18). There is a cystic lesion noted in the pancreatic neck measuring 0.5 cm (axial T2 image 14). ADRENALS: The bilateral adrenal glands are grossly stable andunremarkable. KIDNEYS/URINARY TRACT: The kidneys are grossly stable in size. The bilateral kidneys enhance symmetrically. There are scatteredsubcentimeter simple appearing cysts in the bilateral kidneys with the largest measuring0.4 cm on the right and 0.8 cm on the left, which do not require follow-up imaging. There is no definite evidence of hydronephrosis. GI: The visualized bowel appears grossly unremarkable. There is nodefinite evidence of free fluid in the abdomen. There is no definite MRI evidenceof abdominal lymphadenopathy. MUSCULOSKELETAL: There is an S shaped scoliotic curvature of the spinewith degenerative changes. OTHER: No other abnormality. IMPRESSION: Redemonstration of multiple cysts in the liver, some of which are mildly complicated with thin nonenhancing septations and lobulations. The largest cyst in segment 4A of the liver has decreased in size in comparison to the prior study, and therefore likely represents a partially collapsed hepatic cyst containing proteinaceous/hemorrhagic debris. Continued attention on follow-up imaging is recommended as clinically indicated. Couple of wedge-shaped fluid-filled lesions in the right hepatic lobe,which are overall grossly similar to prior CT dated 05/22/2022, and likelyrepresent collapsed hepatic cysts. Continued attention on follow-up imaging is recommended as clinically indicated. 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 Follow-up MRI/MRCP in1 year is recommended to assess for stability as clinically indicated. THIS IS AN ELECTRONICALLY VERIFIED FINAL REPORT 05/12/2024 2:38 PM - Electronically signed by Amy Jones D.O. PS: PS Report ID: [id number] Reading Location: [id number] Carlos Lakhani MD [facility] MRI PROCEDURES Final Result * Dexa Axial Skeleton Bone Density 1 or 2 Site (05/16/2023 9:59 AM MIXER SLAGMAN) Anatomical Region Laterality Modality Body N/A Other 05/16/2023 5:48 PM MIXER SLAGMAN Narrative 05/16/2023 5:49 PM MIXER SLAGMAN EXAM DESCRIPTION: DEXA AXIAL SKELETON BONE DENSITY 1 OR MORE SITES REASON FOR STUDY: 82 y/o year old F with given history of: screen osteoporosis, Osteoporosis screening Screening. Tool Rental Technician/Model: FiscalNote SL (S/N [id number]) CLINICAL INFORMATION: Current height: 59 inches Maximum height: 62 inches Weight: 121 pounds Risk factors: Postmenopausal, cancer, inflammatory bowel disease, asthma or emphysema COMPARISON: None available FINDINGS: AP LUMBAR SPINE L1-L4: Total BMD is 1.010 g/cm2 T-score is -0.3 LEFT HIP: Total BMD is 0.840 g/cm2 T-score is -0.8 Femoral neck BMD is 0.787 g/cm2 T-score is -0.6 FRAX: FRAX not reported due to T-scores of hip, femoral neck and/or spine being at or above -1.0 (Normal). IMPRESSION: Normal bone mass. REFERENCE: Bone mineral density: Normal (T-score above or = -1.0) Low bone mass (T-score between -1.0 and -2.5) replaces the previously used term osteopenia Osteoporosis (T-score = or below -2.5) Please see below follow up recommendations. Medical evaluation for secondary causes of low bone mineral density may be appropriate. FRAX is a World Health Organization validated fracture risk assessment tool that calculates a person's 10 year probability of a major osteoporosis related fracture and hip fracture. According to the National Osteoporosis Foundation guidelines, postmenopausal women and men age 50 or older with low bone mass and a 10 year probability of a major osteoporosis related fracture = or greater than 20% or a 10 year probability of a hip fracture = or greater than 3% should be considered for pharmacological treatment for the prevention of osteoporosis. For further information, including treatment recommendations, please refer to the 2019 ISCD Official Positions (http://www.iscd.org) and the NOF's Clinician's Guide to Prevention and Treatment of Osteoporosis (http://www.nof.org/professionals/clinical-guidelines) THIS IS AN ELECTRONICALLY VERIFIED FINAL REPORT 05/16/2023 5:49 PM - Electronically signed by Westley Lopez M.D. MF: [email or web address] Report ID: [id number] Reading Location: [place] [address] Procedure Note Westley Lopez MD - 05/16/2023 EXAM DESCRIPTION: DEXA AXIAL SKELETON BONE DENSITY 1 OR MORE SITES REASON FOR STUDY: 82 y/o year old F with given history of: screen osteoporosis, Osteoporosis screening Screening. Tool Rental Technician/Model: FiscalNote SL (S/N [id number]) CLINICAL INFORMATION: Current height: 59 inches Maximum height: 62 inches Weight: 121 pounds Risk factors: Postmenopausal, cancer, inflammatory bowel disease, asthmaor emphysema COMPARISON: None available FINDINGS: AP LUMBAR SPINE L1-L4: Total BMD is 1.010 g/cm2 T-score is -0.3 LEFT HIP: Total BMD is 0.840 g/cm2 T-score is -0.8 Femoral neck BMD is 0.787 g/cm2 T-score is -0.6 FRAX: FRAX not reported due to T-scores of hip, femoral neck and/or spine beingat or above -1.0 (Normal). IMPRESSION: Normal bone mass. REFERENCE: Bone mineral density: Normal (T-score above or = -1.0) Low bone mass (T-score between -1.0 and -2.5) replaces thepreviously used term osteopenia Osteoporosis (T-score = or below -2.5) Please see below follow up recommendations. Medical evaluation forsecondary causes of low bone mineral density may be appropriate. FRAX is a World Health Organization validated fracture risk assessmenttool that calculates a person's 10 year probability of a major osteoporosisrelated fracture and hip fracture. According to the National OsteoporosisFoundation guidelines, postmenopausal women and men age 50 or older with low bonemass and a 10 year probability of a major osteoporosis related fracture = or greater than 20% or a 10 year probability of a hip fracture = or greaterthan 3% should be considered for pharmacological treatment for the preventionof osteoporosis. For further information, including treatment recommendations, please referto the 2019 ISCD Official Positions (http://www.iscd.org) and the NOF's Clinician's Guide to Prevention and Treatment of Osteoporosis (http://www.nof.org/professionals/clinical-guidelines) THIS IS AN ELECTRONICALLY VERIFIED FINAL REPORT 05/16/2023 5:49 PM - Electronically signed by Westley Lopez M.D. MF: [email or web address] Report ID: [id number] Reading Location: [place] [address] Pankaj Braun MD IMG DXA PROCEDURES Final Re sult from Last 3 Months or Most Recently Relevant to Health [place] [address] [facility] MEDICARE [facility] MEDICARE [facility] Advance Directives For more information, please contact: [phone] * Full Code (Latest Code Status on File) Date Activated Date Inactivated Comments 06/13/2022 11:17 AM 06/13/2022 4:51 PM * Full Code Date Activated Date Inactivated Comments 06/13/2022 11:17 AM 06/13/2022 11:17 AM Care Teams Beet Worker Relationship Specialty Start Date End Date Pankaj Braun MD [address] [place] [address] PCP - General Family Medicine 05/17/21 Clara Montano PA [address] [place] [address] Physician Grooving Machine Operator Dermatology 05/17/21 Sakshi Lazar MD [address] [facility] [address] [place] [address] Consulting Physician Allergy and Immunology 05/17/21 Carlos Lakhani MD [address] [place] [address] DR MUSTAFA [address] [place] [id number] Consulting Physician Gastroenterology 06/19/22
--- OUTSIDE RECORDS SUMMARY | 2024-06-08 18:19 | XMS_ITS | Encounter Summary ---
Author Organization [facility] Address [address] [place] [address] Care Team Providers Care Headwaitress Name Role Phone Arcelia Rodriguez Primary Care Provi reese Mayra Smith RN Unavailable [facility] Pankaj Braun MD Primary Care Provider [phone] Encounter Details Date Type Department Care Team (Late st Contact Info) Description 10/22/2017 Telephone [facility] [address] [address] Arcelia Rodriguez APRN-CNP [address] [facility] [place] [place] [phone] Social History Tobacco Use Types Packs/Day Years Used Date Smoking Tobacco: Former Smokeless Tobacco: Never Alcohol Use Standard Drinks/Week Comments No 0 (1 standard drink = 0.6 oz pur e alcohol) Sex and Gender Information Value Date Recorded Sex Assigned at Not on file Gender Identity Not on file Sexual Orientation Not on file documented as of this encounter Miscellaneous Notes * Telephone Encounter - Zelda Cronin - 10/22/2017 5:27 PM CDT Spoke with patient and notified patient of x-ray order and referral. Notified patient that allergy is scheduling out 2 months. Verified with patient that she will have completed at the and notified patient if there are anyissues with orders to contact the office and we can further assists so that she does not have to make a second necessary trip. Patient verbalized understanding at this time. * Telephone Encounter - Mehrdad Zelda - 10/22/2017 5:24 PM CDT ----- Message from Ling Kebede sent at 10/22/2017 3:12 PM CDT ----- Regarding: Report on Condition Contact: Arcelia, When we last talked at the end of August by phone you prescribed a second round of antibiotic for bronchitis, which had returned. Again, it got better, but the symptoms are back. It feels more like asthma, but the cough sounds like bronchitis. I have a follow-up appt. with you for December 20, at which time you said that if I'm not over all of this, you would want to get a chest x-ray and possibly refer me to the allergy clinic. Listening to my frequent cough, Angel is urging me to get a chest x-ray sooner than December 20. I'm bringing him in for a long-standing appt. with Dr. Mason this Saturday, September 25 (too soon post-surgery for him to drive). Is it possible for you to order a chest x-ray for me in time to get it done while we're at the on Saturday? It would put Angel's mind at rest, as well as give you a look at it before our appt. on Dec 20. Please let me know if that can be done and if so, how/where to table games dual rate supervisor the order. Thank you. documented in this encounter Plan of Treatment Upcoming Encounters Date Type Department Care Team (Late st Contact Info) Description 09/16/2024 11:30 AM CDT Office Visit [facility] - Dermatology [address] [place] [address], [place] [address] Lane Loja MD [address] [place] [address] [address] [place] [address] documented as of this encounter Visit Diagnoses Not on filedocumented in this encounter Care Teams Headwaitress Relationship Specialty Start Date End Date Arcelia Rodriguez APRN-RING CUTTER LATHE OPERATOR PCP - General 08/23/17 12/24/22 [place] [address] [place] [phone] PCP - General Family Medicine 12/25/22 Mayra Smith RN Care Tank Refinisher 11/25/19 documented as of this encounter
--- OUTSIDE RECORDS SUMMARY | 2024-06-08 18:19 | XMS_ITS | Patient Health Summary ---
Author Organization [facility] Address [address] [place] [address] Care Team Providers Care Jewelry Engraver Name Role Phone Mayra Smith RN Unavailable Unavailable Pankaj Braun MD Primary Care Provider [phone] Note from [facility],non-owned Affiliates and Associated Physician Practices is amultiple site organization consisting of ambulatory clinics and hospital sitesin [place], [place], [place] and [place]. This disclosure is being madepursuant to the Care Everywhere program and may not contain all information available regarding this patient. Last updated 18.[facility] Allergies * Contrast-Iodinated Agents For Ct/Other(Shortness of Breath) -High Criticality Medications * Be aware that medications may not be up to date on this document. Alwaysverify current medications with the patient. * Cholecalciferol (VITAMIN D3) 66448 UNITS TABS Take 1 (one) tablet by mouth every 7 days * Flaxseed, Linseed, (FLAX SEED OIL) 1000 MG Take 2,000 (two thousand) mg by mouth once daily * albuterol HFA (PROAIR HFA) 108 (90 BASE) MCG/ACT inhaler(Started 10/29/2017) Inhale 2 puffs by mouth every 4 hours as needed for Shortness of Breath, Wheezing or Cough 3 refills remaining * fluticasone hfa 44 (FLOVENT HFA) 44 MCG/ACT inhaler(Started 04/17/2019) Inhale 2 puffs by mouth 2 times daily 6 refills by 04/16/2020 * montelukast (SINGULAIR) 10 MG tablet(Started 09/26/2019) * Fluocinolone Acetonide Scalp 0.01 %(Started 01/01/2020) Apply to scalp leave on for several hours or overnight. Wash off with salicylic acid shampoo . 2-3 times a week 3 refills by 12/31/2020 * azelastine (ASTELIN) 0.1 % nasal spray(Started 05/27/2020) * clobetasol (TEMOVATE) 0.05 % ointment(Started 05/02/2021) Apply 0.5 Each to affected area 2 times daily * atorvastatin (LIPITOR) 20 MG tablet(Started 06/29/2021) TAKE 1 TABLET BY MOUTH EVERY DAY 1 refill by 06/29/2022 * meloxicam (MOBIC) 15 MG tablet(Started 09/26/2021) Take 1 (one) tablet by mouth once daily 3 refills by 09/26/2022 * calcipotriene (Dovonex) 0.005 % solution(Started 01/08/2022) For scalp Apply to affected area, twice daily. 3 refills by 01/08/2023 * betamethasone dipropionate 0.05 % lotion(Started 01/08/2022) Apply to scalp twice daily. 30 days supply. 5 refills by 01/08/2023 * budesonide 2 MG compound suppository(Started 06/18/2022) * ketoconazole (Nizoral) 2 % shampoo(Started 11/09/2022) Apply to wet hair, leave on for 3 minutes, then rinse; three times weekly. 30 days supply 11 refills by 11/09/2023 * tacrolimus (Protopic) 0.1 % ointment(Started 11/09/2022) Apply 1 g to affected area 2 times daily For face including eyelids 3 refills by 11/09/2023 * budesonide (Entocort EC) 3 MG capsule(Started 09/11/2022) * Cholecalciferol 250 MCG (25409 UT) TABS Take 1 (one) tablet by mouth * Lagevrio 200 MG capsule(Started 11/28/2022) * Qvar RediHaler 40 MCG/ACT inhaler(Started 05/05/2023) * fluorouracil (Efudex) 5 % cream(Started 01/09/2024) Apply to affected areas twice daily for two weeks. * clindamycin (Cleocin) 1 % lotion(Started 05/21/2024) Apply to entire face once daily. 30 day supply. 1 refill by 05/21/2025 Active Problems Problem Noted Date Diagnosed Date Microscopic colitis 06/19/2022 12/25/2022 Family history of colon cancer in mother 023 12/25/2022 Fecal smearing 05/28/2022 12/25/2022 Hepatic cyst 05/28/2022 12/25/2022 Tubular adenoma of colon 05/28/2022 023 Encounter for medical examination to establish c are 05/20/2021 Allergic reaction to pollen 05/17/2021 Mild intermittent asthma 05/17/2021 Nasal discharge 05/17/2021 H/O retinal vein occlusion 01/13/2021 Closed head injury 11/21/2020 Subdural hematoma 11/21/2020 Pain in right hip 03/21/2020 Low back pain 01/06/2020 Muscle weakness (generalized) 01/06/2020 Pain management contract signed--11/201911/23/19 Spinal stenosis of lumbar region 10/07/2019 Seborrheic keratoses, inflamed 06/03/2018 Vocal cord dysfunction 01/13/2018 Mild persistent asthma without complication 12/22 Non-seasonal allergic rhinitis 01/13/2018 Gustatory rhinitis 01/13/2018 Gastroesophageal reflux disease 01/13/2018 Dermatographism 01/13/2018 Other psoriasis 10/18/2017 History of skin cancer in adulthood 10/16/2017 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) 10/16/2017 Non-toxic nodular goiter 09/13/2017 Intermittent palpitations 06/11/2017 Other insomnia 06/11/2017 Chondromalacia patellae, 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 (AFLURIA, FLUZONE TRIVALENT; 6MO+) (IIV3)(Given 01/26/2016, 12/23/2010, 03/28/2010) * Covid Pfizer primary monovalent 12+ yr 0.3mL Purple cap(Given 06/09/2020, 05/19/2020) * DT (AGE 0-7)(Given 01/21/2004, 04/22/1993) * INFLUENZA VACCINE(Given 01/28/2020, 01/07/2019, 01/20/2015) * INFLUENZA VACCINE, HIGH-DOSE, QUADR. (FLUZONE HIGH-DOSE QUADRIVALENT; 65Y+), 0.7 ML (HD-IIV4)(Given 02/22/2012) * INFLUENZA VACCINE, QUADR. (AFLURIA, FLUZONE QUADRIVALENT; 6MO+) (IIV4)(Given 01/20/2015) * MMR(Given 08/09/2018) * PNEUMOCOCCAL PPSV23(Given 01/20/2015, 04/22/2006) * Pneumococcal Pcv13 Conj(Given 06/08/2014) * TD (ADULT), 5 LF TETANUS TOXOID, ADSORBED, PF(Given 02/14/2004) * ZOSTER VACCINE, LIVE(Given 01/25/2012) * Zoster Hzv Vacc Recombinant Inj Im(Given 06/07/2018, 11/19/2017) Social History Tobacco Use Types Packs/Day Years Used Date Smoking Tobacco: Former Smokeless Tobacco: Former Tobacco Cessation:Counseling Given: Not Answered Alcohol Use Standard Drinks/Week Comments No 0 (1 standard drink = 0.6 oz pur e alcohol) Sex and Gender Information Value Date Recorded Sex Assigned at Not on file Gender Identity Not on file Sexual Orientation Not on file Last Filed Vital Signs Vital Sign Reading Time Taken Comments Blood Pressure 120/70 08/01/2021 12:25 PM CDT Pulse 78 08/01/2021 12:25 PM CDT Temperature 36.6 C (97.8 F) 01/13/2021 11:12 AM CDT Respiratory Rate 18 07/07/2020 1:03 PM CDT Oxygen Saturation 96% 01/13/2021 11:12 AM CDT Inhaled Oxygen Concentration - - Weight 58.1 kg (128 lb) 08/01/2021 8:42 AM CDT Height 149.9 cm (4' 11 ) 08/01/2021 8:42 AM CDT Body Mass Index 25.85 08/01/2021 8:42 AM CDT Procedures * AZ DESTRUCT BENIGN LESION, 1-14(Performed 05/15/2024) Performed for Seborrheic keratoses * AZ TANGNTL BX SKIN SINGLE LES(Performed 05/15/2024) Performed for Neoplasm of uncertain behavior of skin * DERMATOPATHOLOGY(Performed 05/15/2024) Performed for Neoplasm of uncertain behavior of skin * AZ TANGNTL BX SKIN SINGLE LES(Performed 03/19/2023) Performed for Neoplasm of uncertain behavior of skin * AZ DESTRUCT BENIGN LESION, 1-14(Performed 03/19/2023) Performed for Seborrheic keratoses, inflamed * DERMATOPATHOLOGY(Performed 03/18/2023) Performed for Neoplasm of uncertain behavior of skin * AZ CHMSRG MOHS MG TQ T/A/L 1ST STAG 5 BLOCKS(Performed 12/25/2022) 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, left * AZ INTMD WND REPAIR TRUNK,ARM,LEG 2.6-7.5(Performed 12/25/2022) 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, left * AZ DESTRUCT BENIGN LESION, 1-14(Performed 11/15/2022) Performed for Inflamed seborrheic keratosis * AZ TANGNTL BX SKIN SINGLE LES(Performed 11/15/2022) Performed for Neoplasm of uncertain behavior of skin * DERMATOPATHOLOGY(Performed 11/09/2022) Performed for Neoplasm of uncertain behavior of skin * AZ DESTRUCT BENIGN LESION, 1-14(Performed 05/11/2022) Performed for Seborrheic keratoses, inflamed * AZ DESTROY PREMALIG LESION, 2-14(Performed 05/11/2022) Performed for AK (actinic keratosis) * AZ DESTROY PREMALIG LESION, 1ST LESION(Performed 05/11/2022) Performed for AK (actinic keratosis) * AZ TANGNTL BX SKIN EA SEP ADDL(Performed 05/11/2022) Performed for Neoplasm of uncertain behavior of skin * AZ TANGNTL BX SKIN SINGLE LES(Performed 05/11/2022) Performed for Neoplasm of uncertain behavior of skin * DERMATOPATHOLOGY(Performed 05/11/2022) Performed for Neoplasm of uncertain behavior of skin * AZ TANGNTL BX SKIN EA SEP ADDL(Performed 10/30/2021) Performed for Neoplasm of uncertain behavior of skin * AZ TANGNTL BX SKIN SINGLE LES(Performed 10/30/2021) Performed for Neoplasm of uncertain behavior of skin * DERMATOPATHOLOGY(Performed 10/30/2021) Performed for Neoplasm of uncertain behavior of skin * XR PELVIS W RIGHT HIP 2VW(Performed 09/26/2021) Performed for Pain in right hip * AZ CHMSRG MOHS MG TQ H/N/H/F/G 1ST STAG 5 BLOC(Performed 08/01/2021) Performed for Basal cell carcinoma (BCC) of right buddhist region * AZ INTMD WND REPAIR FACE,FACIAL 2.5-5(Performed 08/01/2021) Performed for Basal cell carcinoma (BCC) of right buddhist region * AZ CHMSRG MOHS MG TQ H/N/H/F/G 1ST STAG 5 BLOC(Performed 07/27/2021) Performed for Squamous cell carcinoma in situ of skin of left buddhist region * AZ CHMSRG MOHS MG TQ H/N/H/F/G EA ADDL STAG(Performed 07/27/2021) Performed for Squamous cell carcinoma in situ of skin of left buddhist region * PROC MOHS SURG HEAD/NECK/HAND/FEET/ISIDRA(Performed 07/27/2021) Performed for Squamous cell carcinoma in situ of skin of left buddhist region * PROC MOHS SURG HEAD/NECK/HAND/FEET/ISIDRA(Performed 07/27/2021) Performed for Squamous cell carcinoma in situ of skin of left buddhist region * AZ DESTROY PREMALIG LESION, 1ST LESION(Performed 06/26/2021) Performed for AK (actinic keratosis) * AZ TANGNTL BX SKIN SINGLE LES(Performed 06/26/2021) Performed for Neoplasm of uncertain behavior of skin * AZ TANGNTL BX SKIN EA SEP ADDL(Performed 06/26/2021) Performed for Neoplasm of uncertain behavior of skin * DERMATOPATHOLOGY(Performed 06/20/2021) Performed for Neoplasm of uncertain behavior of skin * EYE EXAM(Performed 03/23/2021) * COMPREHENSIVE METABOLIC PANEL(Performed 01/27/2021) Performed for Hyperlipidemia, unspecified hyperlipidemia type * LIPID PROFILE(Performed 01/27/2021) Performed for Hyperlipidemia, unspecified hyperlipidemia type * AZ TANGNTL BX SKIN SINGLE LES(Performed 01/04/2021) Performed for Neoplasm of uncertain behavior of skin * AZ DESTR MALIG TRUNK,EXTREM 1.1-2 CM(Performed 01/04/2021) Performed for Squamous cell carcinoma in situ * DERMATOPATHOLOGY(Performed 12/30/2020) Performed for Neoplasm of uncertain behavior of skin * AZ TANGNTL BX SKIN SINGLE LES(Performed 11/29/2020) Performed for Neoplasm of uncertain behavior of skin * DERMATOPATHOLOGY(Performed 11/29/2020) Performed for Neoplasm of uncertain behavior of skin * EYE EXAM(Performed 10/13/2020) * EYE EXAM(Performed 08/01/2020) * VAS CAROTID DUPLEX BILATERAL(Performed 07/07/2020) Performed for Branch retinal artery occlusion of left eye * ECHO COMPLETE(Performed 07/07/2020) Performed for Retinal vascular occlusion of left eye * EYE EXAM(Performed 07/05/2020) * EYE EXAM(Performed 2020) * PT PTT PANEL(Performed 06/20/2020) Performed for Retinal vascular occlusion of left eye * CBC W AUTO DIFFERENTIAL(Performed 06/20/2020) Performed for Retinal vascular occlusion of left eye * LIPID PROFILE(Performed 06/20/2020) Performed for Retinal vascular occlusion of left eye * COMPREHENSIVE METABOLIC PANEL(Performed 06/20/2020) Performed for Retinal vascular occlusion of left eye * AZ DESTRUCT BENIGN LESION, 1-14(Performed 05/30/2020) Performed for Keratosis, inflamed seborrheic * AZ TANGNTL BX SKIN SINGLE LES(Performed 05/30/2020) Performed for Neoplasm of uncertain behavior of skin * DERMATOPATHOLOGY(Performed 05/30/2020) Performed for Neoplasm of uncertain behavior of skin * XR PELVIS W RIGHT HIP 2VW(Performed 03/14/2020) Performed for Primary osteoarthritis of right hip * BASIC METABOLIC PANEL (CALCIUM TOTAL)(Performed 01/27/2020) Performed for Creatinine elevation * CARDIAC EKG ORDER(Performed 12/01/2019) * CBC W AUTO DIFFERENTIAL(Performed 11/26/2019) Performed for Preoperative examination, Spinal stenosis of lumbar region, unspecified whether neurogenic claudication present * COMPREHENSIVE METABOLIC PANEL(Performed 11/26/2019) Performed for Preoperative examination, Spinal stenosis of lumbar region, unspecified whether neurogenic claudication present * PROC EKG IN CLINIC(Performed 11/26/2019) Performed for Preoperative examination * MRI LUMBAR SPINE WO CONTRAST(Performed 10/19/2019) Performed for Spinal stenosis of lumbar region, unspecified whether neurogenic claudication present * XR SPINE ENTIRE 2 OR 3VW(Performed 10/07/2019) Performed for Back pain, unspecified back location, unspecified back pain laterality, unspecified chronicity * CT LUMBAR SPINE WO CONTRAST(Performed 09/21/2019) Performed for Acute bilateral low back pain without sciatica, Bilateral buttock pain, Numbness of right foot * XR LUMBAR SPINE 4VW OR MORE(Performed 09/10/2019) Performed for Bilateral buttock pain, Numbness and tingling of foot * AZ CARPAL TUNNEL THERA INJ(Performed 06/26/2019) Performed for Carpal tunnel syndrome of left wrist * CARDIAC EKG ORDER(Performed 06/24/2019) * AZ TANGNTL BX SKIN SINGLE LES(Performed 05/29/2019) Performed for Neoplasm of uncertain behavior of skin * AZ DESTROY PREMALIG LESION, 1ST LESION(Performed 05/29/2019) Performed for Actinic keratoses * AZ DESTROY PREMALIG LESION, 2-14(Performed 05/29/2019) Performed for Actinic keratoses * AZ DESTRUCT BENIGN LESION, 1-14(Performed 05/29/2019) Performed for Seborrheic keratoses, inflamed * DERMATOPATHOLOGY(Performed 05/29/2019) Performed for Neoplasm of uncertain behavior of skin * STREP A SCREEN - POINT OF CARE (AMB) STL(Performed 04/01/2019) Performed for Acute streptococcal pharyngitis * AZ LARYNGOSCOPY,FLEX FIBER,DIAGNOSTIC(Performed 03/03/2019) Performed for Hoarseness * AZ DESTRUCT BENIGN LESION, 1-14(Performed 11/25/2018) Performed for Seborrheic keratoses, inflamed * XR KNEE BILAT 4VW OR MORE(Performed 11/24/2018) Performed for Pain in both knees, unspecified chronicity * TSH(Performed 10/14/2018) * CBC W AUTO DIFFERENTIAL(Performed 10/14/2018) * COMPREHENSIVE METABOLIC PANEL(Performed 10/14/2018) Performed for Other chest pain, Leg cramps, Chronic pain of right knee, Malaise and fatigue * CARDIAC EKG ORDER(Performed 10/07/2018) * PROC EKG IN CLINIC(Performed 10/06/2018) Performed for Other chest pain * IMAGING/RADIOLOGY/XRAY RESULTS ORDER(Performed 06/16/2018) * IMAGING/RADIOLOGY/XRAY RESULTS ORDER(Performed 06/13/2018) * PROC THERAPEUTIC INJECTION CARPAL TUNNEL(Performed 06/13/2018) Performed for Carpal tunnel syndrome of left wrist * AZ DESTRUCT BENIGN LESION, 1-14(Performed 06/03/2018) Performed for Seborrheic keratoses, inflamed * CULTURE FUNGUS OTHER+FUNGUS SMEAR(Performed 06/03/2018) Performed for Other psoriasis * CBC W AUTO DIFFERENTIAL(Performed 02/07/2018) Performed for Methotrexate, half-way, current use * COMPREHENSIVE METABOLIC PANEL(Performed 02/07/2018) Performed for Methotrexate, long term care phlebotomist, current use * CBC W AUTO DIFFERENTIAL(Performed 01/24/2018) Performed for Methotrexate, half-way, current use * COMPREHENSIVE METABOLIC PANEL(Performed 01/24/2018) Performed for Encounter for long-term current use of medication * COMPREHENSIVE METABOLIC PANEL(Performed 01/10/2018) Performed for Methotrexate, long term care phlebotomist, current use * CBC W AUTO DIFFERENTIAL(Performed 01/10/2018) Performed for Encounter for long-term current use of medication * COMPREHENSIVE METABOLIC PANEL(Performed 01/03/2018) Performed for Methotrexate, half-way, current use * CBC W AUTO DIFFERENTIAL(Performed 01/03/2018) Performed for Encounter for long-term current use of medication * DEXA BONE DENSITY AXIAL SKELETON(Performed 01/03/2018) Performed for Post-menopause, Healthcare maintenance * MAMMO BILAT SCREENING(Performed 01/03/2018) Performed for Breast cancer screening * COMPREHENSIVE METABOLIC PANEL(Performed 12/27/2017) Performed for Methotrexate, long term care phlebotomist, current use * CBC W AUTO DIFFERENTIAL(Performed 12/27/2017) Performed for Encounter for long-term current use of medication * CBC W AUTO DIFFERENTIAL(Performed 12/20/2017) Performed for Methotrexate, half-way, current use * COMPREHENSIVE METABOLIC PANEL(Performed 12/20/2017) Performed for Methotrexate, long term care phlebotomist, current use * CBC W AUTO DIFFERENTIAL(Performed 12/13/2017) Performed for Encounter for long-term current use of medication * COMPREHENSIVE METABOLIC PANEL(Performed 12/06/2017) Performed for Encounter for long-term current use of medication * CBC W AUTO DIFFERENTIAL(Performed 12/06/2017) Performed for Encounter for long-term current use of medication * COMPLETE PFT W/WO BRONCHODILATOR(Performed 11/20/2017) Performed for SOB (shortness of breath), Cough, Wheezing * XR CHEST 2VW(Performed 10/25/2017) Performed for Cough * HEPATITIS C ANTIBODY(Performed 10/24/2017) Performed for Medication management * HEPATITIS B CORE ANTIBODY TOTAL(Performed 10/24/2017) Performed for Encounter for screening for other viral diseases , Medication management * COMPREHENSIVE METABOLIC PANEL(Performed 10/24/2017) Performed for Medication management * CBC W AUTO DIFFERENTIAL(Performed 10/24/2017) Performed for Medication management * HEPATITIS B SURFACE ANTIGEN W RFLX CONFIRMATION(Performed 10/24/2017) Performed for Encounter for screening for other viral diseases , Medication management * DERMATOPATHOLOGY(Performed 05/07/2017) * EKG 12-LEAD(Performed 04/23/2017) * LIPID PROFILE(Performed 04/01/2017) * URINALYSIS REFLEX TO MICROSCOPIC NO CULTURE(Performed 04/01/2017) * CBC W/O DIFFERENTIAL(Performed 04/01/2017) * TSH(Performed 04/01/2017) * COMPREHENSIVE METABOLIC PANEL(Performed 04/01/2017) * URINALYSIS MICROSCOPIC ONLY REFLEXED(Performed 04/01/2017) * PATHOLOGY TISSUE(Performed 02/16/2016) * VAS LEFT VENOUS DUPLEX LE(Performed 10/17/2015) * XR KNEE LEFT 4VW OR MORE(Performed 10/13/2015) * URINALYSIS MICROSCOPIC ONLY REFLEXED(Performed 10/05/2015) * TSH(Performed 10/05/2015) * URINALYSIS REFLEX TO MICROSCOPIC NO CULTURE(Performed 10/05/2015) * LIPID PROFILE(Performed 10/05/2015) * VITAMIN D 25-HYDROXY(Performed 10/05/2015) * CBC W/O DIFFERENTIAL(Performed 10/05/2015) * COMPREHENSIVE METABOLIC PANEL(Performed 10/05/2015) * DERMATOPATHOLOGY(Performed 01/21/2015) * URINALYSIS MICROSCOPIC ONLY REFLEXED(Performed 05/07/2014) * LIPID PROFILE(Performed 05/07/2014) * URINALYSIS REFLEX TO MICROSCOPIC NO CULTURE(Performed 05/07/2014) * CBC W/O DIFFERENTIAL(Performed 05/07/2014) * COMPREHENSIVE METABOLIC PANEL(Performed 05/07/2014) * DERMATOPATHOLOGY(Performed 05/04/2014) * DERMATOPATHOLOGY(Performed 03/13/2013) * MAMMO BILAT SCREENING(Performed 02/27/2013) Performed for Other screening mammogram * DERMATOPATHOLOGY(Performed 04/25/2012) * US BREAST LEFT COMPLETE(Performed 03/03/2012) Performed for Abnormal mammogram, unspecified * MAMMO BILAT DIAGNOSTIC(Performed 03/03/2012) Performed for Abnormal mammogram, unspecified * TSH(Performed 09/18/2011) * US BREAST LEFT COMPLETE(Performed 09/04/2011) Performed for Abnormal mammogram, unspecified * MAMMO LEFT DIAGNOSTIC(Performed 09/04/2011) Performed for Abnormal mammogram, unspecified * LIPID PROFILE(Performed 07/20/2011) * COMPREHENSIVE METABOLIC PANEL(Performed 07/20/2011) * DERMATOPATHOLOGY(Performed 04/25/2011) * PAP IG RFLX HPV ASCU(Performed 03/21/2011) * US BREAST LEFT COMPLETE(Performed 03/06/2011) Performed for Abnormal mammogram, unspecified * MAMMO LEFT DIAGNOSTIC(Performed 03/06/2011) Performed for Abnormal mammogram, unspecified * MAMMO BILAT SCREENING(Performed 02/16/2011) Performed for Other screening mammogram * COMPREHENSIVE METABOLIC PANEL(Performed 07/10/2010) * TSH(Performed 06/01/2010) * LIPID PROFILE(Performed 06/01/2010) * COMPREHENSIVE METABOLIC PANEL(Performed 06/01/2010) * LAB HISTORICAL RESULTS-ONBASE(Performed 06/01/2010) * ECHO STRESS W DOBUTAMINE(Performed 05/26/2010) * LAB HISTORICAL RESULTS-ONBASE(Performed 05/16/2010) * LAB HISTORICAL RESULTS-ONBASE(Performed 05/06/2010) * LAB HISTORICAL RESULTS-ONBASE(Performed 05/06/2010) * LAB HISTORICAL RESULTS-ONBASE(Performed 05/06/2010) * PATHOLOGY/GENETICS HISTORICAL-ONBASE(Performed 05/06/2010) * LAB HISTORICAL RESULTS-ONBASE(Performed 05/06/2010) * LAB HISTORICAL RESULTS-ONBASE(Performed 05/06/2010) * PATHOLOGY/GENETICS HISTORICAL-ONBASE(Performed 05/06/2010) * PATHOLOGY/GENETICS HISTORICAL-ONBASE(Performed 05/06/2010) * PATHOLOGY/GENETICS HISTORICAL-ONBASE(Performed 05/06/2010) * PATHOLOGY/GENETICS HISTORICAL-ONBASE(Performed 05/06/2010) * TSH(Performed 07/25/2009) * PATHOLOGY/GENETICS HISTORICAL-ONBASE(Performed 10/07/2008) * MAMMO BILAT SCREENING(Performed 10/01/2008) Performed for Other Screening Mammogram * ERYTHROCYTE SEDIMENTATION RATE(Performed 06/14/2008) * CBC W/O DIFFERENTIAL(Performed 06/14/2008) * VITAMIN D 25-HYDROXY(Performed 06/14/2008) * BASIC METABOLIC PANEL (CALCIUM TOTAL)(Performed 06/14/2008) * LIPID PROFILE(Performed 06/14/2008) * TSH(Performed 06/14/2008) * VITAMIN B12(Performed 06/14/2008) * LAB HISTORICAL RESULTS-ONBASE(Performed 06/14/2008) * LAB HISTORICAL RESULTS-ONBASE(Performed 08/30/2006) * LAB HISTORICAL RESULTS-ONBASE(Performed 08/08/2006) * LAB HISTORICAL RESULTS-ONBASE(Performed 07/18/2006) * PATHOLOGY/GENETICS HISTORICAL-ONBASE(Performed 12/17/2002) * PAP SMEAR 1 SLIDE(Performed 04/22/1998) * OCCULT BLOOD FECES 3 - POCT (AMB) SLU(Performed 04/22/1998) Results * AZ DESTRUCT BENIGN LESION, 1-14 (05/15/2024 10:35 AM [employer] [employer]) Narrative Clara Montano PA - 05/15/2024 10:35 AM [employer] Clara Montano PA 05/15/2024 5:22 PM Derm - Benign Lesion Destruction Date/Time: 05/15/2024 10:35 AM Performed by: Clara Montano PA Authorized by: Clara Montano PA Consent given by: patient Consent type: verbal Risks discussed with patient: pain, blistering, scar formation, skin color change and need for further testing/treatment. Consent type: verbal Procedure details: Location information Right brow Number of standard lesions: 1 Total number of lesions: 1 Destruction method: cryotherapy Wound dressing: none Complications: none Wound care discussed with patient? yes Clara WRIGHT PROCEDURE/MINOR SURG ICAL ORDERABLES * AZ TANGNTL BX SKIN SINGLE LES (05/15/2024 10:35 AM [employer] [employer]) Narrative Clara Montano PA - 05/15/2024 10:35 AM [employer] Clara Montano PA 05/15/2024 5:22 PM Derm - Shave Biopsy Date/Time: 05/15/2024 10:35 AM Performed by: Clara Montano PA Authorized by: Clara Montano PA Consent given by: patient Consent type: verbal Risks discussed with patient: bleeding, need for further testing/treatment, infection, scar formation, skin color change and non-diagnostic biopsy. Procedure details: Skin prep: isopropyl alcohol Anesthesia: lidocaine 2% with epi Location information Left brow Number of standard lesions: 1 Body area 1: Lesions in this body area: 1 Total number of lesions: 2 Instrument(s) used: flexible razor blade Hemostasis achieved with aluminum chloride Wound dressing: bandage and petrolatum EBL: no blood loss Complications: none Wound care discussed with patient? yes Specimen(s) sent to pathology Patient preferred contact method(s): phone Clara WRIGHT PROCEDURE/MINOR SURG ICAL ORDERABLES * DERMATOPATHOLOGY (Specimen Count = 1) (05/15/2024 12:00 AM [facility]) Only the most recent of16 resultswithin the time period is included. Case Report Dermatopathology Report Case: [id number] Authorizing Provider: Clara Montano PA Collected: 05/15/2024 12:00 AM Ordering Location: [facility] - Received: 05/18/2024 06:07 AM Dermatology Pathologist: Mallorie Davis MD Specimen: Skin, left brow 6:13 PM [facility] DERMATOPATH[facility]Y [facility]ORATORY Final Diagnosis Specimen A. SKIN, left brow: CHRONIC PERIFOLLICULITIS (L73.8) (see microscopic description) 5 6:13 PM [facility] DERMATOPATHOLOGY LABORATORY Clinical History NMSC 5 6:13 PM [facility] DERMATOPATHOLOGY [facility]ORATORY Gross Description Specimen A: Received is one formalin filled container labeled with the patient's name and designated left brow. The specimen consists of a shave biopsy measuring 6x5x1 mm. Jar 0. 5 6:13 PM [facility] DERMATOPATHOLOGY [facility]ORATORY Microscopic Description Specimen A. SKIN, left brow: Sections show a perifollicular lymphohistiocytic infiltrate. Additional deeper sections were obtained and reviewed. 5 6:13 PM [facility] DERMATOPATHOLOGY [facility]ORATORY Disclaimer An external and internal positive and negative controls are appropriate for the histochemical, immunohistochemical and immunofluorescence stain(s) in this case (if any), except where stated explicitly. The performance characteristics of the stain(s) cited in this report were developed and its performance characteristic determined by the Dermatopathology Laboratory at [facility], directed by Dr. Yoli Davis. These tests need not be, and therefore are not, approved by the [place] Food and Drug Administration. The tests are used for clinical purposes. Billing Codes Specimen Charges Stain Charges 70384 1 5 6:13 PM [facility] DERMATOPATH[facility]Y [facility]OR[facility] Embedded Images 5 6:13 PM [facility] DERMATOPATH[facility]Y [facility] Pathology/Cytolog y TISSUE SPECIMEN FROM SKIN / Unknown 05/15/2024 05/18/2024 6:07 AM ENGRAVER JEWELRY Clara WRIGHT LAB - PATHOLOGY/CYTO LOGY ORDERABLES DERMATOPATHOLOGY LABORATORY [facility] - Department of Dermatology [address], [address] [phone] * [place] ROMINANTL BX SKIN SINGLE LES (03/19/2023 10:02 AM ENGRAVER JEWELRY) Narrative Clara Montano PA - 03/19/2023 10:02 AM ENGRAVER JEWELRY Clara Montano PA 03/19/2023 10:19 AM Derm - Shave Biopsy Date/Time: 03/19/2023 10:02 AM Performed by: Clara Montano PA Authorized by: Clara Montano PA Consent given by: patient Consent type: verbal Risks discussed with patient: bleeding, need for further testing/treatment, infection, scar formation, skin color change and non-diagnostic biopsy. Procedure details: Skin prep: isopropyl alcohol Anesthesia: lidocaine 1% with epi Body area 1: Body area: head/neck Head/neck location: forehead Lesions in this body area: 1 Total number of lesions: 1 Instrument(s) used: flexible razor blade Hemostasis achieved with aluminum chloride Wound dressing: bandage and petrolatum EBL: no blood loss Complications: none Wound care discussed with patient? yes Specimen(s) sent to pathology Patient preferred contact method(s): phone Clara WRIGHT PROCEDURE/MINOR SURG ICAL ORDERABLES * [place] DESTRUCT BENIGN LESION, 1-14 (03/19/2023 9:58 AM ENGRAVER JEWELRY) Narrative Clara Montano PA - 03/19/2023 9:58 AM ENGRAVER JEWELRY Clara Montano PA 03/19/2023 10:19 AM Derm - Benign Lesion Destruction Date/Time: 03/19/2023 9:58 AM Performed by: Clara Montano PA Authorized by: Clara Montano PA Consent given by: patient Consent type: verbal Risks discussed with patient: pain, blistering, scar formation, skin color change, need for further testing/treatment, infection and risk of recurrence. Consent type: verbal Procedure details: Anesthesia: none Body area 1: Body area: trunk Trunk location: back Lesions in this body area: 5 Total number of lesions: 5 Destruction method: cryotherapy Cryotherapy cycles: 1 Cryotherapy time per cycle (seconds): 8-12 Wound dressing: none Complications: none Wound care discussed with patient? yes Clara WRIGHT PROCEDURE/MINOR SURG ICAL ORDERABLES * [place] INTMD WND REPAIR TRUNK,ARM,LEG 2.6-7.5, [place] [facility]MS[facility] MOHS MG TQ T/A/L 1ST STAG 5 BLOCKS (32:07 PM CDT) Narrative Mayra Herrera MD - 12/25/2022 2:07 PM CDT Mayra Herrera MD 12/25/2022 6:04 PM Mohs Micrographic Surgery Operative Note Procedure: Mohs micrographic surgery Date of service: 12/25/2022 Location: left posterior leg Preop diagnosis: Squamous cell carcinoma, keratoacanthoma subtype Postop diagnosis: Same Mohs AUC score: 9 Number of stages: 1 Preop size: 3.0x2.0 cm Postop size: 3.0x2.4 cm Depth of final defect: adipose Previous dermpath accession #: [id number] Repair type: intermediate Mohs accession #: [id number] Surgeon and Pathologist: Mayra Herrera MD served as both surgeon and pathologist. No other physician was involved in the cancer removal or pathology interpretation. Assistants: Gabriel Suh MD Indications for Mohs Surgery Removal of the patient's tumor is complicated by the following clinical features: large tumor size, aggressive pattern on initial pathology. Based on my medical judgement, Mohs surgery is the most appropriate treatment for this cancer compared to other treatments. Alternative treatments to Mohs surgery were discussed and specifically the risks and benefits of curettage, excision with permanent sections, and foregoing treatment were discussed. The rationale for Mohs was explained to the patient and consent was obtained. The risks, benefits and alternatives to therapy were discussed in detail. Specifically, the risks of infection, scarring, bleeding, prolonged wound healing, incomplete removal, allergy to anesthesia, nerve injury and recurrence were addressed. Prior to the procedure, the treatment site was clearly identified and confirmed by the patient. All components of [facility] Protocol/PAUSE Rule completed. STAGE I: The patient was placed on the operating table. The cancer was identified and outlined. The entire surgical field was prepped with hibiclens. The surgical site was anesthetized using Lidocaine 1% with epinephrine 1:100,000 buffered with sodium bicarbonate 8.4% in a 1:10 ratio.The area of clinically apparent tumor was debulked with a 2 mm curette. The layer of tissue was then surgically excised using a #15 blade and was then transferred onto a specimen sheet maintaining the orientation of the specimen. Hemostasis was obtained using monopolar electrodesiccation. The wound site was then covered with a dressing while the tissue samples were processed for examination. The specimen was oriented, mapped and divided. Each section was then inked and processed in the Mohs lab using the Mohs protocol and submitted for frozen section. The histopathologic sections were reviewed by the surgeon in conjunction with the reference map. Total blocks: 1 Total slides: 3 Frozen sections were examined by the surgeon. No additional tumor was identified. No additional histologic findings appreciated. Cell morphology: N/A. No tumor seen. Pathological pattern: N/A. No tumor seen. Depth of invasion: N/A. No tumor seen. Scar tissue: Not Present Perineural invasion: Not Present Inflammation obscuring possible tumor presence: Not Present [facility] CLIA # [id number] Mohs research laboratory specialist: Mayra Herrera MD REPAIR: Intermediate Primary Surgeon: Mayra Herrera MD Formula Room Worker: Gabriel Suh MD; Grace Membreno MD Repair Size: 5.2 cm Sutures: 4-0 monocryl, 5-0 fast absorbing gut The defect was identified and a marking pen was used to plan the repair. The area was infiltrated with Lidocaine 1% with epinephrine 1:100,000 buffered with sodium bicarbonate 8.4% in a 1:10 ratio, prepped with hibiclens and draped with sterile towels. The wound was debeveled and undermined. Cones were excised within relaxed skin tension lines on both sides of the defect. Hemostasis was obtained using monopolar electrodesiccation. The dermis and subcutaneous tissue were then approximated using buried vertical mattress sutures. Percutaneous simple running and simple interrupted sutures were carefully placed for maximum eversion and meticulous wound edge approximation. The wound was cleansed with saline and ointment was applied along the wound surface. A sterile pressure dressing was applied. Wound care instructions were given verbally and in writing. The patient left the operating suite in stable condition. Patient was informed that additional refinement of the resulting surgical scar may be used as a second stage of this reconstruction. Grace Membreno MD PGY-2 I have reviewed the note, edited it as necessary and performed the entire Mohs procedure and delcid portions of the reconstruction. Mayra Herrera MD Executive Team Leader 12/25/2022 Mayra Herrera MD PROCEDURE/MINOR SURG ICAL ORDERABLES * [place] DESTRUCT BENIGN LESION, 1-14 (11/15/2022 1:59 PM CDT) Narrative Clara Montano PA - 11/15/2022 1:59 PM CDT Clara Montano PA 11/15/2022 2:00 PM Derm - Benign Lesion Destruction Date/Time: 11/15/2022 1:59 PM Performed by: Clara Montano PA Authorized by: Clara Montano PA Consent given by: patient Consent type: verbal Risks discussed with patient: pain, blistering, scar formation, skin color change, need for further testing/treatment, infection and risk of recurrence. Consent type: verbal Procedure details: Anesthesia: none Body area 1: Body area: head/neck Head/neck location: forehead (left buddhist ) Lesions in this body area: 1 Total number of lesions: 1 Destruction method: cryotherapy Cryotherapy cycles: 1 Cryotherapy time per cycle (seconds): 8-12 Complications: none Wound care discussed with patient? yes Clara WRIGHT PROCEDURE/MINOR SURG ICAL ORDERABLES * [place] TANGNTL BX SKIN SINGLE LES (11/15/2022 1:58 PM CDT) Narrative Clara Montano PA - 11/15/2022 1:58 PM CDT Clara Montano PA 11/15/2022 2:00 PM Derm - Shave Biopsy Date/Time: 11/15/2022 1:58 PM Performed by: Clara Montano PA Authorized by: Clara Montano PA Consent given by: patient Consent type: verbal Risks discussed with patient: bleeding, need for further testing/treatment, infection, scar formation, skin color change and non-diagnostic biopsy. Procedure details: Skin prep: isopropyl alcohol Anesthesia: bupivacaine 0.25% with epi Body area 1: Body area: lower extremity Lower extremity location: L lower leg Lesions in this body area: 1 Total number of lesions: 1 Instrument(s) used: flexible razor blade Hemostasis achieved with aluminum chloride Wound dressing: bandage and petrolatum EBL: no blood loss Complications: none Wound care discussed with patient? yes Specimen(s) sent to pathology Patient preferred contact method(s): phone and MyChart Clara WRIGHT PROCEDURE/MINOR SURG ICAL ORDERABLES * [place] DESTRUCT BENIGN LESION, 1-14 (05/11/2022 10:46 AM ENGRAVER JEWELRY) Narrative Clara Montano PA - 05/11/2022 10:46 AM ENGRAVER JEWELRY Clara Montano PA 05/11/2022 11:22 AM Derm - Benign Lesion Destruction Date/Time: 05/11/2022 10:46 AM Performed by: Clara Montano PA Authorized by: Clara Montano PA Consent given by: patient Consent type: verbal Risks discussed with patient: pain, blistering, scar formation, skin color change, need for further testing/treatment, infection and risk of recurrence. Consent type: verbal Procedure details: Anesthesia: none Body area 1: Body area: trunk Trunk location: back (upper ) Lesions in this body area: 1 Total number of lesions: 1 Destruction method: cryotherapy Cryotherapy cycles: 1 Cryotherapy time per cycle (seconds): 8-12 Complications: none Wound care discussed with patient? yes Clara WRIGHT PROCEDURE/MINOR SURG ICAL ORDERABLES * [place] DESTROY PREMALIG LESION, 1ST LESION, [place] DESTROY PREMALIG LESION, 2-14 (05/11/2022 10:45 AM ENGRAVER JEWELRY) Narrative Clara Montano PA - 05/11/2022 10:45 AM ENGRAVER JEWELRY Clara Montano PA 05/11/2022 11:22 AM Derm - Destruction Pre-malignant Date/Time: 05/11/2022 10:45 AM Performed by: Clara Montano PA Authorized by: Clara Montano PA Consent given by: patient Consent type: verbal Risks discussed with patient: scar formation, skin color change, need for further testing/treatment, pain, blistering and infection. Consent type: verbal Procedure details: Body area 1: Body area: head/neck Head/neck location: L eyebrow Lesions in this body area: 2 Body area 2: Body area: head/neck Head/neck location: R eyebrow Lesions in this body area: 1 Total number of lesions: 3 Destruction method: cryotherapy Cryotherapy cycles: 1 Cryotherapy time per cycle (seconds): 5-7 Complications: none Wound care discussed with patient? yes Clara WRIGHT PROCEDURE/MINOR SURG ICAL ORDERABLES * [place] TANGNTL BX SKIN SINGLE LES, [place] TANGNTL BX SKIN EA SEP ADDL (05/11/2022 10:44 AM ENGRAVER JEWELRY) Narrative Clara Montano PA - 05/11/2022 10:44 AM ENGRAVER JEWELRY Clara Montano PA 05/11/2022 11:22 AM Derm - Shave Biopsy Date/Time: 05/11/2022 10:44 AM Performed by: Clara Montano PA Authorized by: Clara Montano PA Consent given by: patient Consent type: verbal Risks discussed with patient: bleeding, need for further testing/treatment, infection, scar formation, skin color change and non-diagnostic biopsy. Procedure details: Skin prep: isopropyl alcohol Anesthesia: lidocaine 1% with epi Location information 1. Left buddhist 1. Left calf Number of standard lesions: 2 Total number of lesions: 2 Instrument(s) used: flexible razor blade Hemostasis achieved with aluminum chloride Wound dressing: bandage and petrolatum EBL: no blood loss Complications: none Wound care discussed with patient? yes Specimen(s) sent to pathology Patient preferred contact method(s): phone and MyChart Clara WRIGHT PROCEDURE/MINOR SURG ICAL ORDERABLES * [place] TANGNTL BX SKIN SINGLE LES, [place] TANGNTL BX SKIN EA SEP ADDL (10/30/2021 1:12 PM CDT) Narrative Clara Montano PA - 10/30/2021 1:12 PM CDT Clara Montano PA 10/30/2021 1:51 PM Derm - Shave Biopsy Date/Time: 10/30/2021 1:12 PM Performed by: Clara Montano PA Authorized by: Clara Montano PA Consent given by: patient Consent type: verbal Risks discussed with patient: bleeding, need for further testing/treatment, infection, scar formation, skin color change and non-diagnostic biopsy Procedure details: Skin prep: isopropyl alcohol Anesthesia: lidocaine 1% with epi Body area 1: Body area: head/neck Head/neck location: neck (left neck anterior ) Lesions in this body area: 1 Body area 2: Body area: head/neck Head/neck location: neck (left neck posterior ) Lesions in this body area: 1 Body area 3: Body area: head/neck Head/neck location: neck (right neck ) Lesions in this body area: 1 Total number of lesions: 3 Instrument(s) used: flexible razor blade Hemostasis achieved with aluminum chloride Wound dressing: bandage and petrolatum EBL: no blood loss Complications: none Wound care discussed with patient? yes Specimen(s) sent to pathology Patient preferred contact method(s): phone Clara WRIGHT PROCEDURE/MINOR SURG ICAL ORDERABLES * XR PELVIS W RIGHT HIP 2VW (09/26/2021 12:42 PM CDT) Only the most recent of2 resultswithin the time period is included. Anatomical Region Laterality Modality Pelvis Radiographic Cathy ging 09/26/2021 12:4 9 PM CDT Impressions 09/26/2021 12:50 PM CDT Degenerative changes of the right hip which have progressed since February 2020. *Reading Radiologist: Darryn Garcia on 09/26/2021 at 12:50 PM Narrative 09/26/2021 12:50 PM CDT Right hip and pelvis 3 views INDICATION: Pain FINDINGS: No fractures are identified. There is some mild narrowing of the right hip joint which has progressed since the old exam. There is some spurring along the lateral margin of the acetabulum. There is no dislocation. The pubic rami are active. The left hip is unremarkable. Procedure Note Darryn Garcia MD - 09/26/2021 Right hip and pelvis 3 views INDICATION: Pain FINDINGS: No fractures are identified. There is some mild narrowing of the right hip joint which has progressed since the old exam. There is some spurring along the lateral margin of the acetabulum. There is no dislocation. The pubic rami are active. The left hip is unremarkable. IMPRESSION Degenerative changes of the right hip which have progressed since February 2020. *Reading Radiologist: Darryn Garcia on 09/26/2021 at 12:50 PM Aston Coon MD DIAGNOSTIC IMAGING ORDERABLES * [place] INTMD WND REPAIR FACE,FACIAL 2.5-5, [place] [facility]MS[facility] MOHS MG TQ H/N/H/F/G 1ST STAG 5 BLOC (08/01/2021 1:07 PM CDT) Narrative Kevon Munoz MD - 08/01/2021 1:07 PM CDT Kevon Munoz MD 08/03/2021 2:33 PM Mohs Micrographic Surgery Operative Note Procedure: Mohs micrographic surgery Date of service: 08/01/2021 Location: R buddhist Preop diagnosis: Basal cell carcinoma, infiltrative Postop diagnosis: Same Mohs AUC score: 9 Number of stages: 1 Preop size: 1.2 x1.0 cm Postop size: 1.7 x1.5 cm Depth of final defect: adipose Previous dermpath accession #: [id number] Repair type: intermediate Mohs accession #: [id number] Surgeon and Pathologist: Kevon Munoz MD served as both surgeon and pathologist. No other physician was involved in the cancer removal or pathology interpretation. Assistants: Resident Physician Denny Coyle MD Indications for Mohs Surgery Removal of the patient's tumor is complicated by the following clinical features: Clinical area critical for tissue conservation (Area H: central face, eyelids, eyebrows, nose, lips, chin, ear, periauricular, buddhist, genitalia, hands, feet, ankles, nail units and areola), aggressive pattern on initial pathology, poorly-defined clinical tumor borders. Based on my medical judgement, Mohs surgery is the most appropriate treatment for this cancer compared to other treatments. I discussed alternative treatments to Mohs surgery and specifically discussed the risks and benefits of curettage, excision with permanent sections, and foregoing treatment. The rationale for Mohs was explained to the patient and consent was obtained. The risks, benefits and alternatives to therapy were discussed in detail. Specifically, the risks of infection, scarring, bleeding, prolonged wound healing, incomplete removal, allergy to anesthesia, nerve injury and recurrence were addressed. Prior to the procedure, the treatment site was clearly identified and confirmed by the patient. All components of [facility] Protocol/PAUSE Rule completed. STAGE I: The patient was placed on the operating table. The cancer was identified and outlined. The entire surgical field was prepped with iodine. The surgical site was anesthetized using Lidocaine 1% with epinephrine 1:100,000 buffered with sodium bicarbonate 8.4% in a 1:10 ratio.The area of clinically apparent tumor was debulked with a 2 mm curette. The layer of tissue was then surgically excised using a #15 blade and was then transferred onto a specimen sheet maintaining the orientation of the specimen. Hemostasis was obtained using monopolar electrodesiccation. The wound site was then covered with a dressing while the tissue samples were processed for examination. The specimen was oriented, mapped and divided. Each section was then inked and processed in the Mohs lab using the Mohs protocol and submitted for frozen section. The histopathologic sections were reviewed by the surgeon in conjunction with the reference map. Total blocks: 1 Total slides: 3 Frozen sections were examined by the surgeon. No additional tumor was identified. No additional histologic findings appreciated. Cell morphology: N/A. No tumor seen. Pathological pattern: N/A. No tumor seen. Depth of invasion: N/A. No tumor seen. Scar tissue: Not Present Perineural invasion: Not Present Inflammation obscuring possible tumor presence: Present, cleared [facility] CLIA # [id number] Mohs research laboratory specialist: Mayra Herrera MD REPAIR: Intermediate Primary Surgeon: Kevon Munoz MD Formula Room Worker: Resident Physician Denny Coyle MD Repair Size: 3.2 cm Sutures: 5-0 monocryl, 5-0 fast absorbing gut The defect was identified and a marking pen was used to plan the repair. The area was infiltrated with Lidocaine 1% with epinephrine 1:100,000 buffered with sodium bicarbonate 8.4% in a 1:10 ratio, prepped with iodine and draped with sterile towels. The wound was debeveled and undermined widely. Cones were excised within relaxed skin tension lines on both sides of the defect. Hemostasis was obtained using monopolar electrodesiccation. The dermis and subcutaneous tissue were then approximated using buried vertical mattress sutures. Percutaneous simple running sutures were carefully placed for maximum eversion and meticulous wound edge approximation. Careful attention was paid to avoid distorting any nearby free margins. The wound was cleansed with saline and ointment was applied along the wound surface. A sterile pressure dressing was applied. Wound care instructions were given verbally and in writing. The patient left the operating suite in stable condition. Patient was informed that additional refinement of the resulting surgical scar may be used as a second stage of this reconstruction. 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 No other physician was involved in the cancer removal or pathology interpretation. Assistants: Lane Márquez MD Indications for Mohs Surgery Removal of the patient's tumor is complicated by the following clinical features: Clinical area critical for tissue conservation (Area H: central face, eyelids, eyebrows, nose, lips, chin, ear, periauricular, buddhist, genitalia, hands, feet, ankles, nail units and areola), large tumor size, poorly-defined clinical tumor borders. Based on my medical judgement, Mohs surgery is the most appropriate treatment for this cancer compared to other treatments. I discussed alternative treatments to Mohs surgery and specifically discussed the risks and benefits of curettage, excision with permanent sections, and foregoing treatment. The rationale for Mohs was explained to the patient and consent was obtained. The risks, benefits and alternatives to therapy were discussed in detail. Specifically, the risks of infection, scarring, bleeding, prolonged wound healing, incomplete removal, allergy to anesthesia, nerve injury and recurrence were addressed. Prior to the procedure, the treatment site was clearly identified and confirmed by the patient. All components of [facility] Protocol/PAUSE Rule completed. STAGE I: The patient was placed on the operating table. The cancer was identified and outlined. The entire surgical field was prepped with hibiclens. The surgical site was anesthetized using Lidocaine 1% with epinephrine 1:100,000 buffered with sodium bicarbonate 8.4% in a 1:10 ratio.The area of clinically apparent tumor was debulked with a 2 mm curette. The layer of tissue was then surgically excised using a #15 blade and was then transferred onto a specimen sheet maintaining the orientation of the specimen. Hemostasis was obtained using monopolar electrodesiccation. The wound site was then covered with a dressing while the tissue samples were processed for examination. The specimen was oriented, mapped and divided. Each section was then inked and processed in the Mohs lab using the Mohs protocol and submitted for frozen section. The histopathologic sections were reviewed by the surgeon in conjunction with the reference map. Total blocks: 1 Total slides: 3 Frozen sections were examined by the surgeon and residual tumor was noted as below. Tumor was marked in red on the reference map. Cell morphology: full thickness epidermal squamous cell atypia with cellular pleomorphism Pathological pattern: Squamous cell carcinoma in situ Depth of invasion: Epidermis Scar tissue: Not Present Perineural invasion: Not Present Inflammation obscuring possible tumor presence: Not Present STAGE II: The patient was prepped in the same fashion as the first stage. Using a similar technique to that described above, a thin layer of tissue was removed from all areas where tumor was visible on the previous stage. The tissue was again oriented, mapped, dyed, and processed as above. Histopathologic sections were reviewed in conjunction with the reference map. Total blocks: 1 Total slides: 3 Frozen sections were examined by the surgeon and revealed: No additional tumor. Histology: No malignant cells seen in the sections examined. Seborrheic keratosis noted. Actinic keratosis was noted on the final margin. This was not further treated with Mohs given the extensive background actinic damage. [facility] CLIA # [id number] Mohs Bacon Skin Lifter: Mayra Herrera MD REPAIR: Burow s Advancement Flap (combined repair with second Mohs site, see attached procedure note) Primary Surgeon: Kevon Munoz MD Repair Size: 8.4x5.5 cm Sutures: 5-0 monocryl, 5-0 prolene Indication for flap: A flap was chosen because closing the wound by second intention, primary linear closure, or when skin grafting would result in a functionally unsatisfactory result. Additionally, a flap was chosen to recruit additional tissue, displace tension away from the defect and any nearby free margins, as well as to reorient tension vectors in more favorable directions. The defect was identified and a marking pen was used to plan the repair. The area was infiltrated with Lidocaine 1% with epinephrine 1:100,000 buffered with sodium bicarbonate 8.4% in a 1:10 ratio, prepped with iodine and draped with sterile towels. The flap was incised using a #15 blade to adipose and undermined widely. The defect was debeveled and undermined and an adjacent standing cone was removed. Hemostasis was obtained using monopolar electrodesiccation. The flap was advanced and secured with buried vertical mattress sutures placed in the dermis and subcutaneous tissue. An additional standing cone was removed opposite the flap to minimize tissue deformity. Percutaneous simple running sutures were carefully placed for maximum eversion and meticulous wound edge approximation. Careful attention was paid to avoid distorting any nearby free margins. The wound was cleansed with saline and ointment was applied along the wound surface. A sterile pressure dressing was applied. Wound care instructions were given verbally and in writing. The patient left the operating suite in stable condition. Patient was informed that additional refinement of the resulting surgical scar may be used as a second stage of this reconstruction. Repair merged with [id number]. Dr. Munoz performed the entire surgery, and documentation used to initiate this operative report. I entered the information in our Divided DocFlowsheet with the information provided by Dr. Munoz on her handwritten, paper format, surgical worksheet, which was then used to initiate the create of this note. Dr. Munoz then reviewed and edited the note as needed to complete the note. 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 No other physician was involved in the cancer removal or pathology interpretation. Assistants: Lane Márquez MD Indications for Mohs Surgery Removal of the patient's tumor is complicated by the following clinical features: Clinical area critical for tissue conservation (Area H: central face, eyelids, eyebrows, nose, lips, chin, ear, periauricular, buddhist, genitalia, hands, feet, ankles, nail units and areola), large tumor size, poorly-defined clinical tumor borders. Based on my medical judgement, Mohs surgery is the most appropriate treatment for this cancer compared to other treatments. I discussed alternative treatments to Mohs surgery and specifically discussed the risks and benefits of curettage, excision with permanent sections, and foregoing treatment. The rationale for Mohs was explained to the patient and consent was obtained. The risks, benefits and alternatives to therapy were discussed in detail. Specifically, the risks of infection, scarring, bleeding, prolonged wound healing, incomplete removal, allergy to anesthesia, nerve injury and recurrence were addressed. Prior to the procedure, the treatment site was clearly identified and confirmed by the patient. All components of Donora Protocol/PAUSE Rule completed. STAGE I: The patient was placed on the operating table. The cancer was identified and outlined. The entire surgical field was prepped with hibiclens. The surgical site was anesthetized using Lidocaine 1% with epinephrine 1:100,000 buffered with sodium bicarbonate 8.4% in a 1:10 ratio.The area of clinically apparent tumor was debulked with a 2 mm curette. The layer of tissue was then surgically excised using a #15 blade and was then transferred onto a specimen sheet maintaining the orientation of the specimen. Hemostasis was obtained using monopolar electrodesiccation. The wound site was then covered with a dressing while the tissue samples were processed for examination. The specimen was oriented, mapped and divided. Each section was then inked and processed in the Mohs lab using the Mohs protocol and submitted for frozen section. The histopathologic sections were reviewed by the surgeon in conjunction with the reference map. Total blocks: 1 Total slides: 4 Frozen sections were examined by the surgeon and the green inked edge was not visible, either due to fallout of tumor from the specimen or processing artifact. Another layer was recommended to assess that peripheral edge. Cell morphology: N/A. No tumor seen. Pathological pattern: N/A. No tumor seen. Depth of invasion: N/A. No tumor seen. Scar tissue: Not Present Perineural invasion: Not Present Inflammation obscuring possible tumor presence: Not Present STAGE II: The patient was prepped in the same fashion as the first stage. Using a similar technique to that described above, a thin layer of tissue was removed from all areas where tumor was visible on the previous stage. The tissue was again oriented, mapped, dyed, and processed as above. Histopathologic sections were reviewed in conjunction with the reference map. Total blocks: 1 Total slides: 1 Frozen sections were examined by the surgeon and revealed: No additional tumor. Histology: No malignant cells seen in the sections examined. No additional histologic findings appreciated. [facility] CLIA # [id number] Mohs Bacon Skin Lifter: Mayra Herrera MD REPAIR: Burow's advancement flap (Repair merged with [id number], see attached procedure note). Dr. Munoz performed the entire surgery, and documentation used to initiate this operative report. I entered the information in our Divided DocFlowsheet with the information provided by Dr. Munoz on her handwritten, paper format, surgical worksheet, which was then used to initiate the create of this note. Dr. Munoz then reviewed and edited the note as needed to complete the note. Anabella Adam LPN Kevon Munoz MD PROCEDURE/MINOR SURG ICAL ORDERABLES * AZ DESTROY PREMALIG LESION, 1ST LESION (06/26/2021 12:56 PM ENGRAVER JEWELRY) Narrative Clara Montano PA - 06/26/2021 12:56 PM ENGRAVER JEWELRY Clara Montano PA 06/26/2021 12:57 PM Diagnosis and treatment options discussed. Risks of cryotherapy including but not limited to: potential for permanent scarring, permanent hypopigmentation, blistering, incomplete removal of lesion being treated which may require additional therapy, were all discussed with the patient who wished to proceed. Cryotherapy (Liquid Nitrogen) to 1 lesions for 3-7 seconds each. Number of cycles: 1-2 per lesion treated. Wound care reviewed. Clara WRIGHT PROCEDURE/MINOR SURG ICAL ORDERABLES * AZ TANGNTL BX SKIN EA SEP ADDL, AZ TANGNTL BX SKIN SINGLE LES (06/26/2021 12:55 PM ENGRAVER JEWELRY) Narrative Clara Montano PA - 06/26/2021 12:55 PM ENGRAVER JEWELRY Clara Montano PA 06/26/2021 12:56 PM Risks, benefits and alternatives to shave biopsy were discussed with the patient. Verbal consent was obtained. Location: left buddhist, left zygomatic arch, right buddhist Skin prep: Alcohol Anesthesia: 1% lidocaine with epinephrine Hemostasis: Aluminum chloride Dressing and wound care discussed. Patient agrees to phone call for results and message if not available. Yes Clara WRIGHT PROCEDURE/MINOR SURG ICAL ORDERABLES * EYE EXAM (03/23/2021) Anatomical Region Laterality Modality Other Narrative 03/23/2021 Ordered by an unspecified provider. Scanned Document SCANNING ONLY * (ABNORMAL) COMPREHENSIVE METABOLIC PANEL (01/27/2021 8:37 AM CDT) Only the most recent of18 resultswithin the time period is included. Glucose 89 65 - 99 mg/dL [facility] INSURANCE BILL BUN 27 8 - 27 mg/dL [facility] INSURANCE BILL Creatinine 1.10(H) 0.57 - 1.00 mg/dL [facility] INSURANCE BILL eGFR by MDRD 48(L) >59 mL/min/1.7 3 [facility] INSURANCE BILL eGFR by MDRD 55(L) >59 mL/min/1.7 3 [facility] INSURANCE BILL Comment: [facility] currently reports eGFR in compliance with the current recommendations of the [employer] Kid[employer]. [facility] will update reporting as new guidelines are published from the NKF-ASN Task force. BUN/Creatinine Ratio 25 12 - 28 [facility] INSURANCE BILL Sodium 141 134 - 144 mmol/L [facility] INSURANCE BILL Potassium 4.8 3.5 - 5.2 mmol/L [facility] INSURANCE BILL Chloride 106 96 - 106 mmol/L [facility] INSURANCE BILL CO2 21 20 - 29 mmol/L [facility] INSURANCE BILL Calcium 10.1 8.7 - 10.3 mg/dL [facility] INSURANCE BILL Protein Total 7.3 6.0 - 8.5 g/dL [facility] INSURANCE BILL Albumin 4.4 3.7 - 4.7 g/dL [facility] INSURANCE BILL Globulin Total 2.9 1.5 - 4.5 g/dL [facility] INSURANCE BILL Albumin/Globulin Ratio 1.5 1.2 - 2.2 [facility] INSURANCE BILL Bilirubin Total 0.4 0.0 - 1.2 mg/dL [facility] INSURANCE BILL Alkaline Phosphatase 95 44 - 121 IU/L [facility] INSURANCE BILL Comment:Please note refere nce interval change AST 21 0 - 40 IU/L [facility] INSURANCE BILL ALT 16 0 - 32 IU/L [facility] INSURANCE BILL Comment:FASTING Blood BLOOD SPECIMEN / Unknown 01/27/2021 8:37 AM CDT 01/27/2021 Narrative Resulting Agency Comment Lab Testing performed at: [facility] [place] [address] [facility] [phone] Arcelia Nobles Olvinmelody GATE GUARD-REINFORCING STEEL MACHINE OPERATOR LAB - CHEMI STRY ORDERABLES Performing Organization Address City/[facility]/ZIP Co de Phone Number [facility] INSURANCE BILL [address] [place] [address] * LIPID PROFILE (01/27/2021 8:37 AM CDT) Only the most recent of8 resultswithin the time period is included. Cholesterol 154 100 - 199 mg/dL [facility] INSURANCE BILL Triglycerides 53 0 - 149 mg/dL [facility] INSURANCE BILL HDL Cholesterol 63 >39 mg/dL [facility] INSURANCE BILL VLDL Calculated 11 5 - 40 mg/dL [facility] INSURANCE BILL LDL Calculated 80 0 - 99 mg/dL [facility] INSURANCE BILL Comment NOT NEEDED [facility] INSURANCE BILL Comment: FASTING Ancillary determined the test is not needed. Blood BLOOD SPECIMEN / Unknown 01/27/2021 8:37 AM CDT 01/27/2021 Narrative Resulting Agency Comment Lab Testing performed at: [facility] [place] [address] [facility] [phone] Arcelia M Jennifer LIRA-REINFORCING STEEL MACHINE OPERATOR LAB - CHEMI STRY ORDERABLES Performing Organization Address [facility] Co de Phone Number [facility] INSURANCE BILL [address] [place] [address] * AZ TANGNTL BX SKIN SINGLE LES (01/04/2021 12:57 PM CDT) Narrative Clara Montano PA - 01/04/2021 12:57 PM CDT Clara Montano PA 01/06/2021 6:30 PM Risks, benefits and alternatives to shave biopsy were discussed with the patient. Verbal consent was obtained. Location: left leg Skin prep: Alcohol Anesthesia: 1% lidocaine with epinephrine Hemostasis: Aluminum chloride Dressing and wound care discussed. Patient agrees to phone call for results and message if not available. Yes Clara WRIGHT PROCEDURE/MINOR SURG ICAL ORDERABLES * AZ DESTR MALIG TRUNK,EXTREM 1.1-2 CM (01/04/2021 12:56 PM CDT) Narrative Clara Montano PA - 01/04/2021 12:56 PM CDT Clara Montano PA 01/06/2021 6:30 PM PROCEDURE: Electrodessication and Curettage Risk of bleeding, scarring, infection, and recurrence were discussed with the patient. SURGEON: jo STYRENE DEHYDRATION REACTOR OPERATOR SURGEON: DIAGNOSIS: SCCIS Accession# : LOCATION: Right lower leg SIZE OF LESION PRE-OP: 1cm SIZE AFTER FIRST PASS: 1.2cm ANESTHESIA: 1% Lidocaine with epinephrine. DRESSING: Plain Vaseline petroleum jelly and Band-Aid. Wound care instructions were given to the patient. Clara WRIGHT PROCEDURE/MINOR SURG ICAL ORDERABLES * AZ TANGNTL BX SKIN SINGLE LES (11/29/2020 3:13 PM CDT) Narrative Clara Montano PA - 11/29/2020 3:13 PM CDT Clara Montano PA 12/13/2020 9:53 AM Risks, benefits and alternatives to shave biopsy were discussed with the patient. Verbal consent was obtained. Location: right leg Skin prep: Alcohol Anesthesia: 1% lidocaine with epinephrine Hemostasis: Aluminum chloride Dressing and wound care discussed. Patient agrees to phone call for results and message if not available. Yes Clara WRIGHT PROCEDURE/MINOR SURG ICAL ORDERABLES * EYE EXAM (10/13/2020) Anatomical Region Laterality Modality Other Narrative 10/13/2020 Ordered by an unspecified provider. Scanned Document SCANNING ONLY * EYE EXAM (08/01/2020) Anatomical Region Laterality Modality Other Narrative 08/01/2020 Ordered by an unspecified provider. Scanned Document SCANNING ONLY * VAS CAROTID DUPLEX BILATERAL (07/07/2020 11:32 AM CDT) Anatomical Region Laterality Modality Neck Intravascular Ul trasound 07/07/2020 11:1 7 AM CDT Narrative Procedure Note Westley Parham MD - 07/12/2020 Arcelia Rodriguez APRN-REINFORCING STEEL MACHINE OPERATOR VASCULAR LA B ORDERABLES * ECHO COMPLETE (07/07/2020 11:10 AM CDT) Anatomical Region Laterality Modality Chest Echo 07/07/2020 9:55 AM CDT Narrative Procedure Note Sherly Melo MD - 07/07/2020 Arcelia Rodriguez APRN-REINFORCING STEEL MACHINE OPERATOR ECHOCARDIOG CARA RADIANT * EYE EXAM (07/05/2020) Anatomical Region Laterality Modality Other Narrative 07/05/2020 Ordered by an unspecified provider. Scanned Document SCANNING ONLY * EYE EXAM (2020 4:06 PM ENGRAVER JEWELRY) Anatomical Region Laterality Modality Other Narrative 2020 4:06 PM ENGRAVER JEWELRY Ordered by an unspecified provider. Scanned Document SCANNING ONLY * PT PTT PANEL (06/20/2020 9:22 AM ENGRAVER JEWELRY) INR 1.0 0.9 - 1.2 [facility] INSURANCE BILL Comment: Reference interval is for non-anticoagulated patients. . Suggested INR therapeutic range for Vitamin K antagonist therapy: Standard Dose (moderate intensity therapeutic range): 2.0 - 3.0 Higher intensity therapeutic range 2.5 - 3.5 PT 10.5 9.1 - 12.0 sec [facility] INSURANCE BILL PTT 26 24 - 33 sec [facility] INSURANCE BILL Comment: This test has not been validated for monitoring unfractionated heparin therapy. aPTT-based therapeutic ranges for unfractionated heparin therapy have not been established. For general guidelines on Heparin monitoring, refer to the [facility] Directory of Services. FASTING Blood BLOOD SPECIMEN / Unknown 06/20/2020 9:22 AM ENGRAVER JEWELRY 06/20/2020 Narrative Resulting Agency Comment Lab Testing performed at: [facility] [phone] Arcelia M Petzchen GATE GUARD-REINFORCING STEEL MACHINE OPERATOR LAB - COAGU LATION ORDERABLES [facility] INSURANCE BILL [address] [place] [address] * CBC WITH DIFFERENTIAL (06/20/2020 9:22 AM ENGRAVER JEWELRY) Only the most recent of12 resultswithin the time period is included. WBC 5.2 3.4 - 10.8 x10E3/uL [facility] INSURANCE BILL RBC 4.41 3.77 - 5.28 x10E6/uL [facility] INSURANCE BILL Hemoglobin 14.2 11.1 - 15.9 g/dL [facility] INSURANCE BILL Hematocrit 42.0 34.0 - 46.6 % [facility] INSURANCE BILL MCV 95 79 - 97 fL [facility] INSURANCE BILL MCH 32.2 26.6 - 33.0 pg [facility] INSURANCE BILL MCHC 33.8 31.5 - 35.7 g/dL [facility] INSURANCE BILL RDW 12.6 11.7 - 15.4 % [facility] INSURANCE BILL Platelet Count 306 150 - 450 x10E3/uL [facility] INSURANCE BILL Granulocytes % 60 Not Estab. % [facility] INSURANCE BILL Lymphocytes % 28 Not Estab. % [facility] INSURANCE BILL Monocytes % 9 Not Estab. % [facility] INSURANCE BILL Eosinophils % 3 Not Estab. % [facility] INSURANCE BILL Basophils % 0 Not Estab. % [facility] INSURANCE BILL Immature Cells NOT NEEDED [facility] INSURANCE BILL Comment:Ancillary determined the test is not needed. Granulocytes Absolute 3.1 1.4 - 7.0 x10E3/uL [facility] INSURANCE BILL Lymphocytes Absolute 1.5 0.7 - 3.1 x10E3/uL [facility] INSURANCE BILL Monocytes Absolute 0.5 0.1 - 0.9 x10E3/uL [facility] INSURANCE BILL Eosinophils Absolute 0.2 0.0 - 0.4 x10E3/uL [facility] INSURANCE BILL Basophils Absolute 0.0 0.0 - 0.2 x10E3/uL [facility] INSURANCE BILL Immature Granulocytes 0 Not Estab. % [facility] INSURANCE BILL Immature Granulocytes Absolute 0.0 0.0 - 0.1 x10E3/uL [facility] INSURANCE BILL nRBC NOT NEEDED [facility] INSURANCE BILL Comment:Ancillary determined the test is not needed. Comment Hematology NOT NEEDED [facility] INSURANCE BILL Comment: FASTING Ancillary determined the test is not needed. Blood BLOOD SPECIMEN / Unknown 06/20/2020 9:22 AM ENGRAVER JEWELRY 06/20/2020 Narrative Resulting Agency Comment [facility] [address] [facility] [phone] Arcelia Rodriguez GATE GUARD-REINFORCING STEEL MACHINE OPERATOR LAB - HEMAT OLOGY ORDERABLES [facility] INSURANCE BILL [address] [place] [address] * AZ DESTRUCT BENIGN LESION, 1-14 (05/30/2020 2:44 PM ENGRAVER JEWELRY) Narrative Clara Montano PA - 05/30/2020 2:44 PM ENGRAVER JEWELRY Clara Montano PA 05/30/2020 3:15 PM Risks, benefits and alternatives to curette distruction were discussed with the patient. Verbal consent was obtained. Location: left chest and left cheek Skin prep: Alcohol Anesthesia: 1% lidocaine with epinephrine Hemostasis: Aluminum chloride Clara WRIGHT PROCEDURE/MINOR SURG ICAL ORDERABLES * AZ TANGNTL BX SKIN SINGLE LES (05/30/2020 2:43 PM ENGRAVER JEWELRY) Narrative Clara Montano PA - 05/30/2020 2:43 PM ENGRAVER JEWELRY Clara Montano PA 05/30/2020 3:15 PM Risks, benefits and alternatives to shave biopsy were discussed with the patient. Verbal consent was obtained. Location: right cheek Skin prep: Alcohol Anesthesia: 1% lidocaine with epinephrine Hemostasis: Aluminum chloride Dressing and wound care discussed. Patient agrees to phone call for results and message if not available. Yes Clara WRIGHT PROCEDURE/MINOR SURG ICAL ORDERABLES * (ABNORMAL) BASIC METABOLIC PANEL (CALCIUM TOTAL) (01/27/2020 11:42 AM CDT) Only the most recent of2 resultswithin the time period is included. Glucose 89 65 - 99 mg/dL [facility] INSURANCE BILL BUN 29(H) 8 - 27 mg/dL [facility] INSURANCE BILL Creatinine 1.11(H) 0.57 - 1.00 mg/dL [facility] INSURANCE BILL eGFR by MDRD 48(L) >59 mL/min/1.7 3 [facility] INSURANCE BILL eGFR by MDRD 55(L) >59 mL/min/1.7 3 [facility] INSURANCE BILL BUN/Creatinine Ratio 26 12 - 28 [facility] INSURANCE BILL Sodium 142 134 - 144 mmol/L [facility] INSURANCE BILL Potassium 5.1 3.5 - 5.2 mmol/L [facility] INSURANCE BILL Chloride 105 96 - 106 mmol/L [facility] INSURANCE BILL CO2 24 20 - 29 mmol/L [facility] INSURANCE BILL Calcium 10.8(H) 8.7 - 10.3 mg/dL [facility] INSURANCE BILL Comment:FASTING Blood BLOOD SPECIMEN / Unknown 01/27/2020 11:42 AM CDT 01/27/2020 Narrative Resulting Agency Comment [facility]: [facility] [address] [facility] [phone] Arcelia SHAH LAB - CHEMI STRY ORDERABLES [facility] INSURANCE BILL [address] [place] [address] * CARDIAC EKG ORDER (12/01/2019 3:09 PM CDT) Only the most recent of3 resultswithin the time period is included. Narrative 12/01/2019 3:09 PM CDT Ordered by an unspecified provider. Scanned Document CARDIAC SERVICES ORD ERABLES * PROC EKG IN CLINIC (11/26/2019) Only the most recent of2 resultswithin the time period is included. Narrative Arcelia Rodriguez APRN-CNP - 11/26/2019 EKG--NSR. Rate 73 Low voltage precordial leads Incomplete RBBB No change from 09/2018 Arcelia SHAH ECG ORDERAB LES * MRI LUMBAR SPINE WO CONTRAST (10/19/2019 11:16 AM CDT) Anatomical Region Laterality Modality Spine Magnetic Resonan ce 10/19/2019 11:2 0 AM CDT Impressions 10/19/2019 11:28 AM CDT 1. 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 2. Multiple areas of nerve root impingement as described. 3. Abnormal liver, probable multiple cysts *Reading Radiologist: Ashlyn Mejia on 10/19/2019 at 11:28 AM Narrative 10/19/2019 11:28 AM CDT MRI lumbar spine, noncontrast DATE: 10/19/2019. INDICATION: Back pain, lumbar stenosis. TECHNIQUE: Multiplanar, multisequence nonenhanced lumbar spine MRI. COMPARISONS: None. FINDINGS: At L5-S1 there is 3 mm of grade 1 anterolisthesis of L5 relative to S1 due to advanced facet arthropathy. A broad-based disc bulge is present producing some deformity of the thecal sac but no central stenosis. The left neural foramen is narrowed with nerve root impingement but without complete stenosis. The right neural foramen is only mildly narrowed. The disc is desiccated and flattened. At L4-L5 there is 4 mm of grade 1 anterolisthesis of L4 relative to L5 due to advanced facet arthropathy. A broad-based disc bulge is accompanied by severe facet and ligamentum flavum hypertrophy producing moderate to high-grade central spinal stenosis. Minimum midline AP canal diameter is 5 mm and with displacement of CSF. Both neural foramina are narrowed with impingement greater on the right but without complete stenosis. The disc is desiccated and flattened. At L3-L4 there is 2 mm of grade 1 anterolisthesis due to chronic facet arthropathy. A mild broad-based disc bulge is accompanied by moderate facet and ligamentum flavum hypertrophy without central or foraminal stenosis. At L2-L3 the disc is desiccated and flattened. There is a mild broad-based disc spur complex and moderate facet and ligamentum flavum hypertrophy producing mild canal narrowing. No foraminal stenosis. At L1-L2 the disc is desiccated and flattened. There is a mild broad-based disc spur complex producing slight deformity of the thecal sac. There is moderate facet and ligamentum flavum hypertrophy but without central or foraminal stenosis. In the lower thoracic spine chronic disc spur complexes are noted at T9-T10, T10-T11, T11-T12 and T12-L1 but without central stenosis. The distal cord has normal size and signal intensity. Overall bone marrow signal is normal except for localized degenerative changes in the lower lumbar spine. A portion of the liver is included on the scan and reveals what appears to be multiple cysts including one which is large measuring over 8 cm. Procedure Note Ashlyn Mejia MD - 10/19/2019 MRI lumbar spine, noncontrast DATE: 10/19/2019. INDICATION: Back pain, lumbar stenosis. TECHNIQUE: Multiplanar, multisequence nonenhanced lumbar spine MRI. COMPARISONS: None. FINDINGS: At L5-S1 there is 3 mm of grade 1 anterolisthesis of L5 relative to S1 due to advanced facet arthropathy. A broad-based disc bulge is present producing some deformity of the thecal sac but no central stenosis. The left neural foramen is narrowed with nerve root impingement but without complete stenosis. The right neural foramen is only mildly narrowed. The disc is desiccated and flattened. At L4-L5 there is 4 mm of grade 1 anterolisthesis of L4 relative to L5 due to advanced facet arthropathy. A broad-based disc bulge is accompanied by severe facet and ligamentum flavum hypertrophy producing moderate to high-grade central spinal stenosis. Minimum midline AP canal diameter is 5 mm and with displacement of CSF. Both neural foramina are narrowed with impingement greater on the right but without complete stenosis. The disc is desiccated and flattened. At L3-L4 there is 2 mm of grade 1 anterolisthesis due to chronic facet arthropathy. A mild broad-based disc bulge is accompanied by moderate facet and ligamentum flavum hypertrophy without central or foraminal stenosis. At L2-L3 the disc is desiccated and flattened. There is a mild broad-based disc spur complex and moderate facet and ligamentum flavum hypertrophy producing mild canal narrowing. No foraminal stenosis. At L1-L2 the disc is desiccated and flattened. There is a mild broad-based disc spur complex producing slight deformity of the thecal sac. There is moderate facet and ligamentum flavum hypertrophy but without central or foraminal stenosis. In the lower thoracic spine chronic disc spur complexes are noted at T9-T10, T10-T11, T11-T12 and T12-L1 but without central stenosis. The distal cord has normal size and signal intensity. Overall bone marrow signal is normal except for localized degenerative changes in the lower lumbar spine. A portion of the liver is included on the scan and reveals what appears to be multiple cysts including one which is large measuring over 8 cm. IMPRESSION 1. 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 2. Multiple areas of nerve root impingement as described. 3. Abnormal liver, probable multiple cysts *Reading Radiologist: Ashlyn Mejia on 10/19/2019 at 11:28 AM Yossi Kunz MD MR ORDERABLES * XR SPINE ENTIRE 2 OR 3VW (10/07/2019 1:19 PM CDT) Anatomical Region Laterality Modality Spine Radiographic Cathy ging 10/07/2019 1:35 PM CDT Impressions 10/08/2019 10:30 AM CDT Scoliosis. Degenerative change. Edited by Dina Cisneros on 10/07/2019 2:22 PM *Reading Radiologist: Honorio Carmona on 10/08/2019 at 10:30 AM Narrative 10/08/2019 10:30 AM CDT THORACOLUMBAR SPINE SCANOGRAM. HISTORY: Back pain Views of the thoracolumbar spine show scoliosis concave in the upper thoracic spine to the right with a Mc angle of 24 degrees. There is scoliosis in the thoracolumbar junction concave to the left with a Mc angle of 15 degrees. Vertebral heights are normal. There is interspace height loss at multiple levels. Sclerosis and spur formation are seen on vertebral bodies. Slight anterolisthesis of L4 and L5 is present of about 5 mm. Procedure Note Honorio Carmona MD - 10/08/2019 THORACOLUMBAR SPINE SCANOGRAM. HISTORY: Back pain Views of the thoracolumbar spine show scoliosis concave in the upper thoracic spine to the right with a Mc angle of 24 degrees. There is scoliosis in the thoracolumbar junction concave to the left with a Mc angle of 15 degrees. Vertebral heights are normal. There is interspace height loss at multiple levels. Sclerosis and spur formation are seen on vertebral bodies. Slight anterolisthesis of L4 and L5 is present of about 5 mm. IMPRESSION Scoliosis. Degenerative change. Edited by Dina Cisneros on 10/07/2019 2:22 PM *Reading Radiologist: Honorio Carmona on 10/08/2019 at 10:30 AM Louis Solis MD DIAGNOSTIC IMAGING O RDERABLES * CT LUMBAR SPINE WO CONTRAST (09/21/2019 9:29 AM CDT) Anatomical Region Laterality Modality Spine Computed Tomogra phy 09/21/2019 11:3 4 AM CDT Impressions 09/21/2019 1:59 PM CDT IMPRESSION: Multilevel degenerative changes. Mild lumbar levocurvature, centered at L4 with 5 mm anterolisthesis of L4 relative to L5. Severe spinal canal stenosis at L4-5. Varying degrees of foraminal stenosis at all levels, severe at right L4-5 and left L5-S1. Dictated by Samanta Bryan MD (enrollment services vice president). This report was approved by Samanta Bryan on 09/21/2019 1:54 PM . I, Dr. WILLIAMS BLAIR have personally reviewed and interpreted this examination/study. This report was electronically signed by WILLIAMS BLAIR on 09/21/2019 1:59 PM . Narrative 09/21/2019 1:59 PM CDT EXAMINATION: Computed tomography (CT) of the lumbar spine without contrast HISTORY: Acute bilateral low back pain TECHNIQUE: CT of the lumbar spine was performed without contrast according to standard protocol. COMPARISON: Lumbar radiograph dated 09/10/2019. FINDINGS: There is mild lumbar levoscoliosis, centered at L4 with 3 mm left lateral listhesis of L4 relative to L3 and L5. There is 5 mm anterolisthesis at L4-L5. There are severe degenerative changes of the discs and endplates at L3-4 to L5-S1. There is moderate loss of disc space height at all levels. There is multilevel moderate to severe facet arthropathy. Individual level analysis is as follows: L1-2: Mild circumferential disc bulge. Moderate bilateral facet hypertrophy. No spinal canal stenosis. Mild left foraminal narrowing. L2-3: Mild circumferential disc bulge with ligamentum flavum thickening. Moderate right and mild facet hypertrophy. Mild spinal canal stenosis. Mild bilateral foraminal stenosis. L3-4: Slight anterolisthesis of L3. Multiple vertebral disc bulge with left extraforaminal large disc herniation. Facet hypertrophy and ligamentum flavum thickening. Mild spinal canal stenosis. Mild bilateral foraminal stenosis. L4-5: 5 mm anterolisthesis of L4. Significant facet hypertrophy and ligamentum flavum thickening. Severe spinal canal stenosis. Severe right and mild left foraminal stenosis. L5-S1: Moderate cervical vertebral disc bulge. Facet hypertrophy and ligamentum flavum thickening. No significant spinal canal stenosis. Mild right and moderate to severe left foraminal stenosis. Paraspinal muscle atrophy is noted. Procedure Note Williams Blair MD - 09/21/2019 EXAMINATION: Computed tomography (CT) of the lumbar spine withoutcontrast HISTORY: Acute bilateral low back pain TECHNIQUE: CT of the lumbar spine was performed without contrastaccording to standard protocol. COMPARISON: Lumbar radiograph dated 09/10/2019. FINDINGS: There is mild lumbar levoscoliosis, centered at L4 with 3 mm leftlateral listhesis of L4 relative to L3 and L5. There is 5 mm anterolisthesis at L4-L5. There are severe degenerative changes of the discs and endplatesat L3-4 to L5-S1. There is moderate loss of disc space height at alllevels. There is multilevel moderate to severe facet arthropathy. Individual level analysis is as follows: L1-2: Mild circumferential disc bulge. Moderate bilateral facet hypertrophy. No spinal canal stenosis. Mild left foraminal narrowing. L2-3: Mild circumferential disc bulge with ligamentum flavum thickening. Moderate right and mild facet hypertrophy. Mild spinal canal stenosis. Mild bilateral foraminal stenosis. L3-4: Slight anterolisthesis of L3. Multiple vertebral disc bulge with left extraforaminal large disc herniation. Facet hypertrophy and ligamentum flavum thickening. Mild spinal canal stenosis. Mild bilateral foraminal stenosis. L4-5: 5 mm anterolisthesis of L4. Significant facet hypertrophy and ligamentum flavum thickening. Severe spinal canal stenosis. Severe right and mild left foraminal stenosis. L5-S1: Moderate cervical vertebral disc bulge. Facet hypertrophy and ligamentum flavum thickening. No significant spinal canal stenosis. Mild right and moderate to severe left foraminal stenosis. Paraspinal muscle atrophy is noted. IMPRESSION: Multilevel degenerative changes. Mild lumbar levocurvature, centered atL4 with 5 mm anterolisthesis of L4 relative to L5. Severe spinal canal stenosis at L4-5. Varying degrees of foraminal stenosis at all levels, severe at right L4-5 and left L5-S1. Dictated by Samanta Bryan MD (enrollment services vice president). This report was approved by Samanta Bryan on 09/21/2019 1:54 PM . I, Dr. WILLIAMS BLAIR have personally reviewed and interpreted this examination/study. This report was electronically signed by WILLIAMS BLAIR on 09/21/2019 1:59 PM. Arcelia Rodriguez GATE GUARD-REINFORCING STEEL MACHINE OPERATOR CT ORDERABL ES * XR LUMBAR SPINE 4VW OR MORE (09/10/2019 11:13 AM CDT) Anatomical Region Laterality Modality Spine Radiographic Cathy ging 09/10/2019 1:10 PM CDT Impressions 09/10/2019 1:23 PM CDT IMPRESSION: Lumbar levoscoliosis, spondylosis, and listhesis. Dictated by Manuel Birmingham M.D. (enrollment services vice president). Dr. CARROLL Moy MD have personally reviewed and interpreted this examination/study. This report was electronically signed by CARROLL WORLEY MD on 09/10/2019 1:23 PM . Narrative 09/10/2019 1:23 PM CDT EXAMINATION: XR LUMBAR SPINE 4VW HISTORY: M79.18: Bilateral buttock pain R20.0: Numbness and tingling of foot R20.2: Numbness and tingling of foot COMPARISON: No prior study is available for comparison. FINDINGS: There is lumbar levoscoliosis. There is anterolisthesis at L3-4 measuring 5 mm and at L4-5 measuring 8mm, not significantly changed with flexion or extension. There is severe degenerative disc disease at L4-5 and mild to moderate involvement at the other levels. Multilevel facet degeneration is seen. No fracture is noted. Procedure Note Carroll Worley MD - 09/10/2019 EXAMINATION: XR LUMBAR SPINE 4VW HISTORY: M79.18: Bilateral buttock pain R20.0: Numbness and tingling of foot R20.2: Numbness and tingling of foot COMPARISON: No prior study is available for comparison. FINDINGS: There is lumbar levoscoliosis. There is anterolisthesis at L3-4measuring 5 mm and at L4-5 measuring 8mm, not significantly changed with flexionor extension. There is severe degenerative disc disease at L4-5 and mild to moderate involvement at the other levels. Multilevel facet degenerationis seen. No fracture is noted. IMPRESSION: Lumbar levoscoliosis, spondylosis, and listhesis. Dictated by Manuel Birmingham M.D. (enrollment services vice president). I, Dr. CARROLL WORLEY MD have personally reviewed and interpreted this examination/study. This report was electronically signed by CARROLL WORLEY MD on09/10/2019 1:23 PM . Arcelia Rodriguez GATE GUARD-REINFORCING STEEL MACHINE OPERATOR DIAGNOSTIC IMAGING ORDERABLES * PROC THERAPEUTIC INJECTION CARPAL TUNNEL (06/26/2019) Narrative Armando Heaton MD - 06/26/2019 0.8 cc Kenalog-40 and 0.2 cc 0.5% Marcaine injected without complication left wrist. I performed the procedure myself patient tolerated the procedure well. Armando Heaton MD PROCEDURE/MINOR SURG ICAL ORDERABLES * AZ TANGNTL BX SKIN SINGLE LES (05/29/2019 10:36 AM ENGRAVER JEWELRY) Narrative Clara Montano PA - 05/29/2019 10:36 AM ENGRAVER JEWELRY Clara Montano PA 06/02/2019 10:36 AM Risks, benefits and alternatives to shave biopsy were discussed with the patient. Verbal consent was obtained. Location: left jaw line Skin prep: Alcohol Anesthesia: 1% lidocaine with epinephrine Hemostasis: Aluminum chloride Dressing and wound care discussed. Patient agrees to phone call for results and message if not available. Yes Clara WRIGHT PROCEDURE/MINOR SURG ICAL ORDERABLES * AZ DESTROY PREMALIG LESION, 2-14, AZ DESTROY PREMALIG LESION, 1ST LESION (05/29/2019 10:35 AM ENGRAVER JEWELRY) Clara Christopher PA - 05/29/2019 10:35 AM ENGRAVER JEWELRY Clara Montano PA 05/29/2019 10:36 AM Diagnosis and treatment options discussed. Cryotherapy (Liquid Nitrogen) to 3 facial lesions for 5 seconds each. Number of cycles: 1. Wound care reviewed. Clara WRIGHT PROCEDURE/MINOR SURG ICAL ORDERABLES * AZ DESTRUCT BENIGN LESION, 1-14 (05/29/2019 10:35 AM ENGRAVER JEWELRY) Clara Christopher PA - 05/29/2019 10:35 AM ENGRAVER JEWELRY Clara Montano PA 06/02/2019 10:36 AM Diagnosis and treatment options discussed. Cryotherapy (Liquid Nitrogen) to 3 facial lesions for 5-7 seconds each. Number of cycles: 1. Wound care reviewed. Clara WRIGHT PROCEDURE/MINOR SURG ICAL ORDERABLES * (ABNORMAL) STREP A SCREEN - POINT OF CARE (AMB) STL (04/01/2019) Strep A Rapid POCT Positive(A) Negative Strep A Internal Control Present Lot # [id number] Expiration Date 07/20/2020 Throat ENTIRE THROAT (SURFACE REGION OF NECK) / Unknown 04/01/2019 Ben Dean GATE GUARD-REINFORCING STEEL MACHINE OPERATOR LAB - POINT OF CARE ORDERABLES * AZ LARYNGOSCOPY,FLEX FIBER,DIAGNOSTIC (03/03/2019 12:28 PM ENGRAVER JEWELRY) Narrative Angel Rodriguez MD - 03/03/2019 12:28 PM ENGRAVER JEWELRY Woody Mccauley MD 03/03/2019 2:43 PM Procedure Note Endoscopy Type: Laryngoscopy without stroboscopy [id number] Endoscope: Flexible 4mm Scope Anesthesia: Lidocaine 2% and Neosynephrine 1/2% (nasal) Procedure Details: The patient was sitting upright in a chair with the head in a slightly anterior sniffing position. The topical anesthesia was administered and then adequate time was allowed for an anesthetic effect. The endoscope was passed thru the nasal cavity. The tip of the endoscope was positioned in the oropharynx which allowed a complete view of the base of tongue, vallecula, pyriform recesses, epiglottis, bilateral true and false vocal folds, the interarytenoid and post cricoid region, and the immediate subglottis. Findings: Bilateral true vocal cords mobile and symmetric. Mild amount of mucus on the cords that clears easily with cough. No evidence of fungal infection. Piriform sinuses clear. No masses, lesions, or other abnormalities. Condition: Stable. Patient tolerated procedure well. Complications: None Dr. Rodriguez was present for the entirety of the procedure. Woody Mccauley MD PROCEDURE/MINOR SURG ICAL ORDERABLES * AZ DESTRUCT BENIGN LESION, 1-14 (11/25/2018 10:10 AM CDT) Narrative Clara Montano PA - 11/25/2018 10:10 AM CDT Clara Montano PA 12/02/2018 1:58 PM Diagnosis and treatment options discussed. Cryotherapy (Liquid Nitrogen) to 4 ISK lesions for 10 seconds each. Number of cycles: 1. Wound care reviewed. 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 No acute osseous injury. Chun Moy, have personally reviewed the images and I agree with this report. Reading Radiologist: Chun Bower MD on 11/24/2018 at 12:58 PM Narrative 11/24/2018 12:58 PM CDT EXAMINATION: Bilateral knees, 4 views. HISTORY: Bilateral knee pain. COMPARISON: No prior study is available for comparison. FINDINGS: The osseous structures are intact and well aligned. Mild medial and patellofemoral joint osteoarthritis is noted bilaterally with associated joint space narrowing and subchondral cyst formation, greater on the left. The bone mineralization is normal. No focal soft tissue swelling is seen. No knee joint effusion is identified. Procedure Note Chun Bower MD - 11/24/2018 EXAMINATION: Bilateral knees, 4 views. HISTORY: Bilateral knee pain. COMPARISON: No prior study is available for comparison. FINDINGS: The osseous structures are intact and well aligned. Mild medial and patellofemoral joint osteoarthritis is noted bilaterally with associated joint space narrowing and subchondral cyst formation, greater on the left. The bone mineralization is normal. No focal soft tissue swelling is seen. No knee joint effusion is identified. 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 No acute osseous injury. Chun Moy, have personally reviewed the images and I agree with this report. Reading Radiologist: Chun Bower MD on 11/24/2018 at 12:58 PM Alvarado Salvador MD DIAGNOSTIC IMAGING O RDERABLES * TSH (10/14/2018 8:05 AM CDT) Only the most recent of7 resultswithin the time period is included. TSH 2.030 0.450 - 4.500 uIU/mL [facility] INSURANCE BILL Comment:FASTING 10/14/2018 8:05 AM CDT 10/14/2018 Narrative Resulting Agency Comment Lab Testing performed at: [place] [id number] [facility] [id number] Arcelia Rodriguez GATE GUARD-REINFORCING STEEL MACHINE OPERATOR LAB - CHEMI STRY ORDERABLES [employer] INSURANCE BILL [address] [place] [address] * IMAGING/RADIOLOGY/XRAY RESULTS ORDER (06/16/2018 6:17 AM ENGRAVER JEWELRY) Only the most recent of2 resultswithin the time period is included. Anatomical Region Laterality Modality Other Narrative 06/16/2018 6:17 AM ENGRAVER JEWELRY Ordered by an unspecified provider. Scanned Document IMAGING * PROC THERAPEUTIC INJECTION CARPAL TUNNEL (06/13/2018) Narrative Armando Heaton MD - 06/13/2018 0.8 cc Kenalog-40 and 0.2 cc 0.5% Marcaine injected without complication into the left wrist so he'll tissues adjacent to the median nerve. I performed the procedure myself she tolerated the procedure well. Armando Heaton MD PROCEDURE/MINOR SURG ICAL ORDERABLES * AZ DESTRUCT BENIGN LESION, 1-14 (06/03/2018 12:19 PM ENGRAVER JEWELRY) Narrative Clara Montano PA - 06/03/2018 12:19 PM ENGRAVER JEWELRY Clara Montano PA 06/03/2018 12:19 PM PROCEDURE: Cryosurgery and Curettage Risk of bleeding, scarring, infection, and recurrence were discussed with the patient. SURGEON: jo DIAGNOSIS: ISK LOCATION: Left cheek, back (2), left arm (1) right arm (1) ANESTHESIA: 1% Lidocaine with epinephrine. DRESSING: Plain Vaseline petroleum jelly and Band-Aid. Wound care instructions were given to the patient. duoderm for largest back lesion Clara WRIGHT PROCEDURE/MINOR SURG ICAL ORDERABLES * CULTURE FUNGUS OTHER+FUNGUS SMEAR (06/03/2018 12:00 AM ENGRAVER JEWELRY) Fungus Stain Final report [facility] INSURANCE BILL Result 1 [facility] INSURANCE BILL Comment:ROSALIE/Calcofluor prepa ration: no fungus observed. Fungus Culture Final report [facility] INSURANCE BILL Result 1 [facility] INSURANCE BILL Comment:No yeast or mold iso lated after 4 weeks. Microbiology ENTIRE SCALP / Unknown 06/03/2018 06/03/2018 Narrative Resulting Agency Comment [facility] [place] [address] [facility] [id number] Clara WRIGHT LAB - MICROBIOLOGY O RDERABLES [facility] INSURANCE BILL [address] [place] [address] * BONE DENSITY AXIAL SKELETON(1OR MORE SITES)[id number] (01/03/2018 8:29 AM CDT) Anatomical Region Laterality Modality Mammography 01/03/2018 2:20 PM CDT Narrative 01/03/2018 4:35 PM CDT Examination: Dual energy x-ray absorptiometry of the lumbar spine and hip. Clinical Indication: 77-year-old postmenopausal female Findings: Detailed data from the exam is sent separately to the ordering physician and is also available on Dr. Tariff, the Radiology Department's computerized picture archive system. Patient's height 60 in; weight 134 lb. SUMMARY: No prior study available for comparison. BONE MINERAL DENSITY (BMD) lumbar spine (L1-4): Normal; T-score 1.0 BONE MINERAL DENSITY (BMD) left femoral neck: Normal; T-score 0.1 Definitions: T-score = Standard Deviation Normal: A value for bone mineral density(BMD) within 1 standard deviation of the young adult reference mean. (T-score above -1) Low bone mass(osteopenia): A value for bone mineral density(BMD) more than 1 standard deviation below the young adult mean, but less than 2.5 standard deviations below the young adult mean. ( T-score between -1 and -2.5) Osteoporosis: A value for bone mineral density 2.5 standard deviations or more below the young adult mean. ( T-score at or below -2.5) Severe osteoporosis: Osteoporosis + the presence of one or more fragility fractures. Please note that T-score values are important in determining increased risk for fractures. The T-score represents the standard deviation above or below the mean bone mineral density for young adults. With each -1 standard deviation decrease in bone mineral density, the risk for fracture doubles exponentially. A T-score of -1 will double the risk , and -2 will be 4 times the risk. As a rule of thumb, a T-score of -1 to -2.5 indicates increasing degrees of osteopenia. This report was approved by Tomasa Soto M.D. on 01/03/2018 2:21 PM . I, Dr. SONALI GALEANO D.O. have personally reviewed and interpreted this examination/study. This report was electronically signed by SONALI GALEANO D.O. on 01/03/2018 4:35 PM . Procedure Note Sonali Galeano, DO - 01/03/2018 Examination: Dual energy x-ray absorptiometry of the lumbar spine andhip. Clinical Indication: 77-year-old postmenopausal female Findings: Detailed data from the exam is sent separately to the ordering physician and is also available on Dr. Tariff, the Radiology Department's computerized picture archive system. Patient's height 60 in; weight 134 lb. SUMMARY: No prior study available for comparison. BONE MINERAL DENSITY (BMD) lumbar spine (L1-4): Normal; T-score 1.0 BONE MINERAL DENSITY (BMD) left femoral neck: Normal; T-score 0.1 Definitions: T-score = Standard Deviation Normal: A value for bone mineral density(BMD) within 1 standarddeviation of the young adult reference mean. (T-score above -1) Low bone mass(osteopenia): A value for bone mineral density(BMD) morethan 1 standard deviation below the young adult mean, but less than 2.5 standard deviations below the young adult mean. ( T-score between -1 and -2.5) Osteoporosis: A value for bone mineral density 2.5 standard deviationsor more below the young adult mean. ( T-score at or below -2.5) Severe osteoporosis: Osteoporosis + the presence of one or morefragility fractures. Please note that T-score values are important in determining increased risk for fractures. The T-score represents the standard deviation aboveor below the mean bone mineral density for young adults. With each -1 standard deviation decrease in bone mineral density, the risk forfracture doubles exponentially. A T-score of -1 will double the risk , and -2will be 4 times the risk. As a rule of thumb, a T-score of -1 to -2.5indicates increasing degrees of osteopenia. This report was approved by Tomasa Soto M.D. on 01/03/2018 2:21 PM. I, Dr. SONALI GALEANO D.O. have personally reviewed and interpreted this examination/study. This report was electronically signed by SONALI GALEANO D.O. on01/03/2018 4:35 PM . Arcelia Rodriguez APRN-REINFORCING STEEL MACHINE OPERATOR DEXA ORDERA BLES * MAMMO BILAT SCREENING (01/03/2018 8:14 AM CDT) Only the most recent of4 resultswithin the time period is included. Anatomical Region Laterality Modality Breast Bilateral Mammography 01/03/2018 12:3 2 PM CDT Impressions 01/03/2018 12:35 PM CDT IMPRESSION: No mammographic evidence of malignancy. ASSESSMENT: BI-RADS Category 2: Benign finding(s). RECOMMENDATION: Bilateral screening mammogram in one year. This report was electronically signed by CORINA LUCERO M.D. on 01/03/2018 12:35 PM . Narrative 01/03/2018 12:35 PM CDT BILATERAL SCREENING MAMMOGRAM DATE: 01/03/2018. COMPARISON: Multiple prior mammograms, most recently 02/27/2013 and 03/03/2012. HISTORY: Screening mammogram. TECHNIQUE: Images were performed using 3D tomosynthesis images with reconstructed/synthetic 2D images and CAD analysis. BREAST COMPOSITION: There are scattered areas of fibroglandular density. FINDINGS: There is no suspicious mass, clustered microcalcification, or architectural distortion in either breast on 2D or 3D images. There has been no change in the mammographic appearance compared with the prior study. Medial left breast masses are unchanged from prior studies and considered benign. Per technologist, best possible images were obtained. Arcelia Rodriguez GATE GUARD-REINFORCING STEEL MACHINE OPERATOR MAMMO ORDER CHANTAL * COMPLETE PFT W/WO BRONCHODILATOR (11/20/2017 1:44 PM CDT) Impressions Inocente Sanchez MD - 11/20/2017 1:44 PM CDT [facility] DEPARTMENT OF PULMONARY, CRITICAL CARE, AND SLEEP MEDICINE PULMONARY FUNCTION TESTS Ling Kebede 77 y.o. 11/05/2017 INTERPRETATION Please see technologist's comments mentioned above. SPIROMETRY: FEV1/FVC ratio is normal. FEV1 is normal Forced vital capacity is normal There is significant response to bronchodilator administration INSPECTION OF FLOW_VOLUME LOOP SHOWS Normal flow-volume loops LUNG VOLUMES: Lung volumes by body plethysmography show moderate hyperinflation based on TLC(135-150% pred) and severe air-trapping based on RV(>150% pred). Diffusion capacity: DLCO adjusted for Hb is normal AIRWAY RESISTANCE: The airway resistance is normal and the specific conductance is normal ARTERIAL BLOOD GAS ANALYSIS not performed IMPRESSION: 1. Mild obstructive ventilatory limitation, normalized after bronchodilator admistration 2. Positive bronchodilator response 3. Moderate increase in total lung capacity and severe air-trapping 4. There is no previous study available for comparison Jennifer Johnson MD Pulmonary / Critical Care Fellow Division of Pulmonary, Critical Care, & Sleep Medicine [facility] I have reviewed this study and agree with the interpretation by the Level[place]. Inocente Sanchez M.D. Wind Turbine Electrical Engineer of Internal Medicine Division of Pulmonary, Critical Care and Sleep Medicine [employer] [facility] [employer] Narrative Inocente Sanchez MD - 11/20/2017 1:44 PM CDT Jennifer Johnson MD 11/05/2017 12:50 PM Arcelia Rodriguez APRN-REINFORCING STEEL MACHINE OPERATOR RESPIRATORY THERAPY ORDERABLES * XR CHEST 2VW (10/25/2017 12:49 PM CDT) Anatomical Region Laterality Modality Chest Radiographic Cathy ging 10/25/2017 1:12 PM CDT Impressions 10/25/2017 2:18 PM CDT IMPRESSION: No acute pulmonary process. Dictated by Naga Gardner MD (enrollment services vice president). Dr. CARROLL Moy MD have personally reviewed and interpreted this examination/study. This report was electronically signed by CARROLL WORLEY MD on 10/25/2017 2:18 PM . Narrative 10/25/2017 2:18 PM CDT EXAMINATION: XR CHEST 2VW HISTORY: Persistent cough COMPARISON: Comparison is made with a study from 05/16/2010. FINDINGS: A surgical clip is seen in the midabdomen on the lateral view. Mild left basilar atelectasis is present. There is no focal consolidation, pleural effusion, or pneumothorax. The cardiac silhouette is normal. The aorta is atherosclerotic and tortuous. Degenerative changes are noted in the thoracic spine. Procedure Note Carroll Worley MD - 10/25/2017 EXAMINATION: XR CHEST 2VW HISTORY: Persistent cough COMPARISON: Comparison is made with a study from 05/16/2010. FINDINGS: A surgical clip is seen in the midabdomen on the lateral view. Mild left basilar atelectasis is present. There is no focal consolidation, pleural effusion, or pneumothorax. The cardiac silhouette is normal. The aortais atherosclerotic and tortuous. Degenerative changes are noted in the thoracic spine. IMPRESSION: No acute pulmonary process. Dictated by Naga Gardner MD (enrollment services vice president). Dr. CARROLL Moy MD have personally reviewed and interpreted this examination/study. This report was electronically signed by CARROLL WORLEY MD on10/25/2017 2:18 PM . Arcelia Rodriguez GATE GUARD-REINFORCING STEEL MACHINE OPERATOR DIAGNOSTIC IMAGING ORDERABLES * HEPATITIS B CORE ANTIBODY (10/24/2017 9:00 AM CDT) Hepatitis B Core Virus Antibody Total Negative Negative [facility] INSURANCE BILL Blood BLOOD SPECIMEN / Unknown 10/24/2017 9:00 AM CDT 10/24/2017 Narrative Resulting Agency Comment [facility] [place] [id number] [facility] [id number] [facility] - CHEMISTRY ALBER NOLAN [facility] INSURANCE BILL [address] [place] [address] * HEPATITIS C ANTIBODY (10/24/2017 9:00 AM CDT) Hepatitis C Antibody <0.1 0.0 - 0.9 s/co ratio [facility] INSURANCE BILL Comment: Negative: < 0.8 Indeterminate: 0.8 - 0.9 Positive: > 0.9 . The CDC recommends that a positive HCV antibody result be followed up with a HCV Nucleic Acid Amplification test (549737). Blood BLOOD SPECIMEN / Unknown 10/24/2017 9:00 AM CDT 10/24/2017 Narrative Resulting Agency Comment [facility] [address] [facility] [id number] [facility] - CHEMISTRY ORDE RABVERONA Performing Organization Address [facility] de Phone Number [facility] INSURANCE BILL [address] [place] [address] * HEPATITIS B SURFACE ANTIGEN W RFLX CONFIRMATION (10/24/2017 8:58 AM CDT) Hepatitis B Virus Surface Antigen Negative Negative [facility] INSURANCE BILL Blood BLOOD SPECIMEN / Unknown 10/24/2017 8:58 AM CDT 10/24/2017 Narrative Resulting Agency Comment [facility] [address] [facility] [id number] [facility] - CHEMISTRY ORDE RABVERONA Performing Organization Address [facility] de Phone Number [facility] INSURANCE BILL [address] [place] [address] * EKG 12-LEAD (04/23/2017) Narrative [facility] - 04/23/2017 12:00 AM ENGRAVER JEWELRY EKG--Rate 50 on EKG--RBBB. NSR. Procedure Note ProviderLeno MD - 09/27/2017 EKG--Rate 50 on EKG--RBBB. NSR. Arcelia Rodriguez GATE GUARD-REINFORCING STEEL MACHINE OPERATOR ECG ORDERAB LES [facility] * URINALYSIS MICROSCOPIC ONLY REFLEXED (04/01/2017 8:46 AM ENGRAVER JEWELRY) Only the most recent of3 resultswithin the time period is included. Pathologist [facility] WBC, UA 0-5 0 - 5 /hpf [facility] ([facility]) RBC UA 0-2 0 - 2 /hpf [facility] ([facility]) Epithelial Cells (non renal) 0-10 0 - 10 /hpf [facility] ([facility]) Mucus UA Present Not Estab. [facility] ([facility]) Bacteria UA Few None seen/Few [facility] ([facility]) 04/01/2017 8:46 AM ENGRAVER JEWELRY 04/01/2017 Narrative [facility] ([facility]) - 04/02/2017 7:13 AM ENGRAVER JEWELRY Performed at: - [facility] [address] [place] [id number] Cook Dessert: Arya Ventura PhD, Phone: [phone] Arcelia Rodriguez GATE GUARD-REINFORCING STEEL MACHINE OPERATOR LAB - URINA LYSIS ORDERABLES [facility] ([facility]) [address] [place] [address], [facility] * (ABNORMAL) URINALYSIS REFLEX TO MICROSCOPIC NO CULTURE (04/01/2017 8:46 AM ENGRAVER JEWELRY) Only the most recent of3 resultswithin the time period is included. Pathologist [facility] Specific [place] 1.017 1.005 - 1.030 [facility] ([facility]) pH Urine 5.5 5.0 - 7.5 [facility] ([facility]) Color UA Yellow Yellow [facility] ([facility]) Appearance Clear Clear [facility] ([facility]) Leukocyte Esterase 1+(A) Negative [facility] ([facility]) Protein UA Negative Negative/Tra ce [facility] ([facility]) Glucose UA Negative Negative [facility] ([facility]) Ketone UA Negative Negative [facility] ([facility]) Blood UA Negative Negative [facility] ([facility]) Bilirubin Negative Negative [facility] ([facility]) Urobilinogen Semi-Qn 0.2 0.2 - 1.0 mg/dL [facility] ([facility]) Nitrite UA Negative Negative [facility] ([facility]) Microscopic Examination See below: [facility] ([facility]) Comment:Microscopic was cooper cated and was performed. Urine specimen (specimen) URINE SPECIMEN OBTAINED BY CLEAN CATCH PROCEDURE / Unknown 04/01/2017 8:46 AM ENGRAVER JEWELRY 04/01/2017 Narrative [facility] ([facility]) - 04/02/2017 7:13 AM ENGRAVER JEWELRY Performed at: [address] [id number] Cook Dessert: Arya Ventura PhD, Phone: [phone] Arcelia Rodriguez GATE GUARD-REINFORCING STEEL MACHINE OPERATOR LAB - URINA LYSIS ORDERABLES [facility] ([facility]) [address] [place] [address], [facility] * CBC W/O DIFFERENTIAL (04/01/2017 8:46 AM ENGRAVER JEWELRY) Only the most recent of4 resultswithin the time period is included. WBC 6.8 3.4 - 10.8 x10E3/uL [facility] ([facility]) RBC 4.33 3.77 - 5.28 x10E6/uL [facility] ([facility]) Hemoglobin 14.2 11.1 - 15.9 g/dL [facility] ([facility]) Comment:Please note refere nce interval change Hematocrit 41.6 34.0 - 46.6 % [facility] ([facility]) MCV 96 79 - 97 fL [facility] ([facility]) MCH 32.8 26.6 - 33.0 pg [facility] ([facility]) MCHC 34.1 31.5 - 35.7 g/dL [facility] ([facility]) RDW-CV 13.7 12.3 - 15.4 % [facility] ([facility]) Platelet 311 150 - 379 x10E3/uL [facility] ([facility]) Blood specimen (specimen) BLOOD SPECIMEN / Unknown 04/01/2017 8:46 AM ENGRAVER JEWELRY 04/01/2017 Narrative [facility] ([facility]) - 04/02/2017 7:13 AM ENGRAVER JEWELRY Performed at: Lab[address], [place] [id number] Cook Dessert: Arya Ventura PhD, Phone: [phone] Arcelia Rodriguez GATE GUARD-REINFORCING STEEL MACHINE OPERATOR LAB - HEMAT OLOGY ORDERABLES [facility] [address] [place] [address], [facility] * PATHOLOGY TISSUE (02/16/2016 9:26 AM CDT) Pathologist [facility] Surgical Pathology Tissue ACCESSION No: [id number] CLINICAL HISTORY: Colonoscopy O/E diverticulosis, internal and external hemorrhoids. Colonoscopy with biopsy Path A: cecal polyp x2, path B: ascending colon polyp, path C: transverse colon polyp x4. FINAL DIAGNOSIS: COLON, CECUM, POLYPS, BIOPSY (A): - TUBULAR ADENOMA - LYMPHOID AGGREGATES COLON, ASCENDING, POLYP, BIOPSY (B): - LYMPHOID AGGREGATES COLON, TRANSVERSE, POLYPS, BIOPSY (C): - SESSILE SERATED ADENOMA / POLYP GROSS DESCRIPTION: Specimen is received fixed in formalin in three containers for gross and microscopic examination. All three containers are labeled with the patient's name, Ling Kebede . Specimen A, cecal polyps , consists of three fragments of soft naik tissue measuring 0.4, 0.3, and 0.2 cm in greatest dimension. The specimen is submitted in toto in cassette A1. Specimen B, ascending colon polyp , consists of two fragments of soft naik tissue with greatest dimensions of 0.7 and 0.3 cm. The specimen is submitted in toto in cassette B1. Specimen C, transverse colon polyp , consists of five fragments of soft, naik-pink tissue ranging in greatest dimension from 0.4 to less than 0.1 cm with an aggregate measurement of 0.7 x 0.6 x 0.2 cm. The specimen is submitted in toto in cassette C1. MR for ABRAHAN/jaswinder MICROSCOPIC DESCRIPTION: Microscopic findings support the final diagnosis. WEB OFFSET PRESS FEEDER/counterintelligence agent The performance characteristics of all immunohistochemical and indirect immunofluorescence stains (if any) cited in this report were determined by the [facility] of [facility]. Some of these tests were developed by our own laboratory and have not been cleared or approved by the US Food and Drug Administration. The FDA does not require this test to go through premarket FDA review. These tests are used for clinical purposes. They should not be regarded as investigational or for research. This laboratory is certified under the Clinical Laboratory Improvement Amendments (CLIA) as qualified to perform high complexity clinical laboratory testing. This case has been personally reviewed and interpreted by the attending (teaching) pathologist. Final Diagnosis performed by Rivka Leon MD. Electronically signed 02/17/2016 [facility] ([facility]) Other (qualifier value) 02/16/2016 9:26 AM CDT 02/16/2016 10:45 AM CDT Narrative [facility] - 02/17/2016 2:17 PM CDT PRE-OP DIAGNOSIS: SCREENING OPERATIVE PROCEDURE / FINDINGS: Procedure(s) with comments: COLONOSCOPY O/E - diverticulosis internal and external rhoids COLON W/ BIOPSY - Path A: cecal polyp x 2 Path B: ascending colon polyp Path C: transverse colon polyp x 4 POST-OP DIAGNOSIS: * No post-op diagnosis entered * Collection Date->02/16/16 Collection Time-> 9:26 AM Specimen A->Large Intestine, Cecum 2 sessile polyps, 1-2 mm, resected Specimen B->Large Intestine, Right/Ascending Colon 1 sessile polyp, 2 mm, resected Specimen C->Large Intestine, Transverse Colon 4 sessile polyps, 1-2 mm, resected Irineo Hood MD LAB - PATHOLOGY/CYTO LOGY ORDERABLES [facility] ([facility]) * VAS LEFT VENOUS DUPLEX LE (10/17/2015 1:29 PM CDT) Anatomical Region Laterality Modality Lower Extremity, Upper Extremity Other Arcelia Rodriguez GATE GUARD-REINFORCING STEEL MACHINE OPERATOR VASCULAR LA B ORDERABLES * XR KNEE LEFT 4VW OR MORE (10/13/2015 4:42 PM CDT) Anatomical Region Laterality Modality Lower Extremity Other Impressions 10/14/2015 8:27 AM CDT IMPRESSION: Mild medial and patellofemoral joint osteoarthritis. Dictated by Naga Gardner MD (enrollment services vice president). I, Dr. PALLAVI SY M.D. have personally reviewed and interpreted this examination/study. This report was electronically signed by PALLAVI SY M.D. on 10/14/2015 8:27 AM . Narrative 10/14/2015 8:27 AM CDT EXAMINATION: XR KNEE LEFT 4+ VW HISTORY: knee pain and posterior swelling (ultrasound has been ordered looking for koenig's cyst--knee pain worse with standing. COMPARISON: No prior study is available for comparison. FINDINGS: The osseous structures are intact and well aligned without acute fracture or dislocation. The medial joint space is narrowed. Subchondral cysts are identified in the patella. A minimal amount of chondrocalcinosis is questioned in the medial joint compartment. A small knee joint effusion is present. Bone density and texture are normal. No soft tissue swelling is present. Procedure Note Pallavi Sy MD - 07/20/2017 EXAMINATION: XR KNEE LEFT 4+ VW HISTORY: knee pain and posterior swelling (ultrasound has been orderedlooking for koenig's cyst--knee pain worse with standing. COMPARISON: No prior study is available for comparison. FINDINGS: The osseous structures are intact and well aligned without acute fractureor dislocation. The medial joint space is narrowed. Subchondral cysts areidentified in the patella. A minimal amount of chondrocalcinosis isquestioned in the medial joint compartment. A small knee joint effusion is present. Bone density andtexture are normal. No soft tissue swelling is present. IMPRESSION IMPRESSION: Mild medial and patellofemoral joint osteoarthritis. Dictated by Naga Gardner MD (enrollment services vice president). I, Dr. PALLAVI SY M.D. have personally reviewed and interpreted thisexamination/study. This report was electronically signed by PALLAVI SY M.D. on 10/14/20158:27 AM . Arcelia Rodriguez GATE GUARD-[facility] DIAGNOSTIC IMAGING ORDERABLES * VITAMIN D 25-HYDROXY (10/05/2015 7:40 AM CDT) Only the most recent of2 resultswithin the time period is included. Vitamin D, 25 Hydroxy 37.8 30.0 - 100.0 ng/mL [facility] Comment: Vitamin D deficiency has been defined by the [place] of Medicine and an Endocrine Society practice guideline as a level of serum 25-OH vitamin D less than 20 ng/mL (1,2). The Endocrine Society went on to further define vitamin D insufficiency as a level between 21 and 29 ng/mL (2). 1. IOM ([place] of Medicine). 2010. Dietary reference intakes for calcium and D. [place]: The National Academies Press. 2. Chary MF, Shanta NC, Hamzah ALEJANDRA, et al. Evaluation, treatment, and prevention of vitamin D deficiency: an Endocrine Society clinical practice guideline. JCEM. 2010; 96(9):1911-30. Blood specimen (specimen) BLOOD SPECIMEN / Unknown 10/05/2015 7:40 AM CDT 10/05/2015 12:27 PM CDT Narrative [facility] ([facility]) - 10/06/2015 7:16 AM CDT Performed at: [address] [place] [id number] Cook Dessert: Arya Ventura PhD, Phone: [phone] Arcelia Rodriguez GATE GUARD-REINFORCING STEEL MACHINE OPERATOR LAB - CHEMI STRY ORDERABLES Performing Organization Address City/State/[facility] Co de Phone Number [facility]) * US BREAST UNILATERAL LEFT (03/03/2012 11:56 AM ENGRAVER JEWELRY) Only the most recent of3 resultswithin the time period is included. Anatomical Region Laterality Modality Breast Left Ultrasound 03/03/2012 12:0 1 PM ENGRAVER JEWELRY Narrative 03/03/2012 12:01 PM ENGRAVER JEWELRY EXAMINATION: Bilateral digital diagnostic mammogram and left breast ultrasound on 03/03/2012 INDICATION: Short-term followup left breast nodularity Annual screening right breast FINDINGS: Computer assisted detection was utilized. Comparison is made with January 2011 and August 2011. No change is noted in the appearance of either breast. Nodularity in the left retroareolar region is stable. Ultrasound of the left breast demonstrates a benign appearing cyst with septation measuring 16 mm in the nine o'clock position 2 cm from the nipple. There is an adjacent 6 mm cyst. No suspicious areas are identified. ASSESSMENT: BIRADS Category 2: Benign finding(s).. RECOMMENDATION: Bilateral screening mammogram in one year. Procedure Note Landy Gallegos MD - 03/03/2012 EXAMINATION: Bilateral digital diagnostic mammogram and left breast ultrasound on 03/03/2012 INDICATION: Short-term followup left breast nodularity Annual screening right breast FINDINGS: Computer assisted detection was utilized. Comparison is made with January 2011 and August 2011. No change is noted in the appearance of either breast. Nodularity in the left retroareolar region is stable. Ultrasound of the left breast demonstrates a benign appearing cyst with septation measuring 16 mm in the nine o'clock position 2 cm from the nipple. There is an adjacent 6 mm cyst. No suspicious areas are identified. ASSESSMENT: BIRADS Category 2: Benign finding(s).. RECOMMENDATION: Bilateral screening mammogram in one year. Louis Villasenor MD US ORDERABLES * GERMAN DIAG DIRECT DIG IMAGE BILATERAL [id number] (03/03/2012 11:51 AM ENGRAVER JEWELRY) Anatomical Region Laterality Modality Bilateral Mammography 03/03/2012 12:0 1 PM ENGRAVER JEWELRY Narrative 03/03/2012 12:01 PM ENGRAVER JEWELRY EXAMINATION: Bilateral digital diagnostic mammogram and left breast ultrasound on 03/03/2012 INDICATION: Short-term followup left breast nodularity Annual screening right breast FINDINGS: Computer assisted detection was utilized. Comparison is made with January 2011August 2011. No change is noted in the appearance of either breast. Nodularity in the left retroareolar region is stable. Ultrasound of the left breast demonstrates a benign appearing cyst with septation measuring 16 mm in the nine o'clock position 2 cm from the nipple. There is an adjacent 6 mm cyst. No suspicious areas are identified. ASSESSMENT: BIRADS Category 2: Benign finding(s).. RECOMMENDATION: Bilateral screening mammogram in one year. Procedure Note Landy Gallegos MD - 03/03/2012 EXAMINATION: Bilateral digital diagnostic mammogram and left breast ultrasound on 03/03/2012 INDICATION: Short-term followup left breast nodularity Annual screening right breast FINDINGS: Computer assisted detection was utilized. Comparison is made with January 2011August 2011. No change is noted in the appearance of either breast. Nodularity in the left retroareolar region is stable. Ultrasound of the left breast demonstrates a benign appearing cyst with septation measuring 16 mm in the nine o'clock position 2 cm from the nipple. There is an adjacent 6 mm cyst. No suspicious areas are identified. ASSESSMENT: BIRADS Category 2: Benign finding(s).. RECOMMENDATION: Bilateral screening mammogram in one year. Louis Villasenor MD MAMMO ORDERABLES * GERMAN DIAG DIRECT DIG IMAGE UNI LEFT [id number] (09/04/2011 10:06 AM CDT) Only the most recent of2 resultswithin the time period is included. Anatomical Region Laterality Modality Left Mammography 09/04/2011 10:2 0 AM CDT Narrative 09/04/2011 10:20 AM CDT EXAMINATION: Left digital diagnostic mammogram and ultrasound on 09/04/2011 INDICATION: Six month followup FINDINGS: Computer assisted detection was utilized. The tissue density is heterogeneously dense. Comparison with prior studies of 03/06/2011 and 02/08/2011 are made. The partially lobulated density in the left inner breast 4 cm deep to the nipple is stable in appearance. No new dominant mass, architectural distortion, or suspicious calcifications are seen. Ultrasound left breast was then performed and compared with prior study of 03/06/2011. Again noted is a septated cyst at the 9 o'clock position 2 cm from the nipple which measures 13 x 9.5 mm, previously 12 x 8.3 mm. ASSESSMENT: BIRADS Category 3: Probably benign finding. Short interval follow up suggested. RECOMMENDATION: Bilateral mammograms and diagnostic left breast ultrasound in 6 months. [facility] utilizes [employer] as a reminder system to notify patients of their next recommended mammogram. Procedure Note Julio Viveros MD - 09/04/2011 EXAMINATION: Left digital diagnostic mammogram and ultrasound on 09/04/2011 INDICATION: Six month followup FINDINGS: Computer assisted detection was utilized. The tissue density is heterogeneously dense. Comparison with prior studies of 03/06/2011 and 02/08/2011 are made. The partially lobulated density in the left inner breast 4 cm deep to the nipple is stable in appearance. No new dominant mass, architectural distortion, or suspicious calcifications are seen. Ultrasound left breast was then performed and compared with prior study of 03/06/2011. Again noted is a septated cyst at the 9 o'clock position 2 cm from the nipple which measures 13 x 9.5 mm, previously 12 x 8.3 mm. ASSESSMENT: BIRADS Category 3: Probably benign finding. Short interval follow up suggested. RECOMMENDATION: Bilateral mammograms and diagnostic left breast ultrasound in 6 months. [facility] utilizes [employer] as a reminder system to notify patients of their next recommended mammogram. Louis Villasenor MD MAMMO ORDERABLES * PAP IG RFLX HPV ASCU (03/21/2011) 03/21/2011 Narrative [facility] - 03/23/2011 11:50 AM ENGRAVER JEWELRY Preferred Lab:->OTHER EXTERNAL LAB Abigail Montgomery GATE GUARD-REINFORCING STEEL MACHINE OPERATOR LAB - PATHO LOGY/CYTOLOGY ORDERABLES Performing Organization Address [facility] Co de Phone Number [facility] * LAB HISTORICAL RESULTS-ONBASE (06/01/2010) Only the most recent of11 resultswithin the time period is included. 06/01/2010 Historical Provider LAB - CHEMISTRY O RDERABLES Performing Organization Address [facility] de Phone Number [facility] * ECHO STRESS TEST W DOBUTAMINE (05/26/2010 12:02 PM ENGRAVER JEWELRY) Anatomical Region Laterality Modality Other Narrative 05/26/2010 12:02 PM ENGRAVER JEWELRY STRESS ECHO TEST REPORT NAME: Ling Kebede : 1940 AGE: 69 y.o. SEX: female Referring Physician: Louis Gómez [facility] [address] [place] [address] Ordering Physician: Louis Gómez M.D. Date of Test: 05.26.10 TAPE#: digital Nursing Education Specialist: dls Height: 5' 6 (167.6 cm) Weight: 136 lb (61.689 kg) BSA: Introduction: Ling Kebede is a 69 y.o. female with chest pain Indication:chest pain Coronary Event: None Atherosclerotic Risk Profile: None Medications: has a current medication list which includes flaxseed oil, omega-3 fatty acids, aspirin, and calcium-vitamin d. Allergies: Allergies Allergen Reactions No Known Drug Allergy No Known Latex Allergy Resting EKG: PEAK WORKLOAD: Protocol: ACIP Time: 9:24 Mph: 3.0 %Grade (kpm): 14% INDICATIONS FOR STOPPING: reached 100% predicted RESULTS: Rest BP: 110/72 Rest HR: 68 %Max HR: 100% Peak BP: 150/90 Peak HR: 152 Peak METs: 9 Contrast: CLINICAL FINDINGS STRESS ECG Exercise stress was maximal (>=85%). Chest pain during exercise was absent. ST depression during exercise was absent. ST elevation was absent. ST segment changes occurred in leads N/A. T wave changes were absent. T wave changes occurred in leads N/A. The patient did not require treatment with nitroglycerine.Exercise-induced arrhythmias were not noted. CLINICAL FINDINGS STRESS ECHO Resting wall motion was normal. Rest LVEF was: 55% . Immediately post-exercise LV function was normal. Chamber Measurements LV Internal Dimension Systole (cm): 1.7 cm LV Internal Dimension Diastole (cm): 4.5 cm Septal Thickness (cm): 1 cm Posterior Wall Thickness (cm): 1.3 cm LV Systolic Function: Normal Aortic Root Measurement (cm): 3.3 cm Left Atrium Measurement (cm): 3.5 cm Right Atrial Size: Normal RV Size: Normal Global RV function: Normal Aortic Valve AV Max (m/s): 1.3 m/s LVOT Diameter (cm): 1.9 cm LVOT max (m/s): 0.9 m/s Normal Aortic Valve Velocities: Yes Mitral Valve Mitral Valve Velocities: E (m/s): 0.6 m/s A (m/s): 0.7 m/s Deceleration Time (msec): 255 msec Tissue Doppler Velocities: Diastolic Function: Normal Tricuspid Valve Max Tricuspid Valve Velocity (m/s): 3 m/s Normal Tricuspid Valve Velocities: Yes Pulmonic Valve Max Pulmonic Valve Velocity (m/s): 0.3 m/s Normal Pulmonic Valve Velocities: Yes OVERALL INTERPRETATION: This is a normal study. Blood pressure response was appropriate. Heart rate response was appropriate. Exercise tolerance was fair. Reading Physician:Vic Chavira Jr, DO Procedure Note Provider, MD Leno - 09/27/2017 STRESS ECHO TEST REPORT NAME: Ling Kebede : 1940 AGE: 69 y.o. SEX: female Referring Physician: Louis Gómez [address], [address] [place] [address] Ordering Physician: Louis Gómez M.D. Date of Test: 05.26.10 TAPE#: digital Nursing Education Specialist: darrell Height: 5' 6 (167.6 cm) Weight: 136 lb (61.689 kg) BSA: Introduction: Ling Kebede is a 69 y.o. female with chest pain Indication:chest pain Coronary Event: None Atherosclerotic Risk Profile: None Medications: has a current medication list which includes flaxseed oil,omega-3 fatty acids, aspirin, and calcium-vitamin d. Allergies: Allergies Allergen Reactions No Known Drug Allergy No Known Latex Allergy Resting EKG: PEAK WORKLOAD: Protocol: ACIP Time: 9:24 Mph: 3.0 %Grade (kpm): 14% INDICATIONS FOR STOPPING: reached 100% predicted RESULTS: Rest BP: 110/72 Rest HR: 68 %Max HR: 100% Peak BP: 150/90 Peak HR: 152 Peak METs: 9 Contrast: CLINICAL FINDINGS STRESS ECG Exercise stress was maximal (>=85%). Chest pain during exercise wasabsent. ST depression during exercise was absent. ST elevation was absent.ST segment changes occurred in leads N/A. T wave changes were absent. Twave changes occurred in leads N/A. The patient did not require treatment with nitroglycerine.Exercise- inducedarrhythmias were not noted. CLINICAL FINDINGS STRESS ECHO Resting wall motion was normal. Rest LVEF was: 55% . Immediatelypost-exercise LV function was normal. Chamber Measurements LV Internal Dimension Systole (cm): 1.7 cm LV Internal Dimension Diastole (cm): 4.5 cm Septal Thickness (cm): 1 cm Posterior Wall Thickness (cm): 1.3 cm LV Systolic Function: Normal Aortic Root Measurement (cm): 3.3 cm Left Atrium Measurement (cm): 3.5 cm Right Atrial Size: Normal RV Size: Normal Global RV function: Normal Aortic Valve AV Max (m/s): 1.3 m/s LVOT Diameter (cm): 1.9 cm LVOT max (m/s): 0.9 m/s Normal Aortic Valve Velocities: Yes Mitral Valve Mitral Valve Velocities: E (m/s): 0.6 m/s A (m/s): 0.7 m/s Deceleration Time (msec): 255 msec Tissue Doppler Velocities: Diastolic Function: Normal Tricuspid Valve Max Tricuspid Valve Velocity (m/s): 3 m/s Normal Tricuspid ValveVelocities: Yes Pulmonic Valve Max Pulmonic Valve Velocity (m/s): 0.3 m/s Normal Pulmonic ValveVelocities: Yes OVERALL INTERPRETATION: This is a normal study. Blood pressure response was appropriate. Heart rate response wasappropriate. Exercise tolerance was fair. Reading Physician:Vic Chavira Jr, DO Arcelia Rodriguez APRN-[facility] [place] * PATHOLOGY/GENETICS HISTORICAL-ONBASE (05/06/2010) Only the most recent of7 resultswithin the time period is included. 05/06/2010 Historical Provider LAB - CHEMISTRY O RDERABLES Performing Organization Address City/[facility] Co de Phone Number [facility] * ERYTHROCYTE SEDIMENTATION RATE (06/14/2008 8:16 AM ENGRAVER JEWELRY) Erythrocyte Sedimentation Rate 12 0 - 20 MM/HR [facility] 06/14/2008 8:16 AM ENGRAVER JEWELRY 06/14/2008 8:31 AM ENGRAVER JEWELRY Louis Gómez MD LAB - HEMATOLOGY ORD ERABLES [address] [phone] * VITAMIN B12 (06/14/2008 8:16 AM ENGRAVER JEWELRY) Vitamin B12 432 239 - 931 pg/mL [facility] Venous blood specimen (specimen) 06/14/2008 8:16 AM ENGRAVER JEWELRY 06/14/2008 8:31 AM ENGRAVER JEWELRY Narrative [facility] - 06/15/2008 9:39 AM ENGRAVER JEWELRY Preferred Lab:->[facility] Louis Gómez MD LAB - CHEMISTRY [place]BER [facility] Performing Organization Address City/[facility]/ZIP Co de Phone Number [facility] [address] [phone] * OCCULT BLOOD FECES 3 - POCT (AMB) [facility] (04/22/1998 12:00 AM ENGRAVER JEWELRY) Occult Blood neg [facility] Occult Blood neg [facility] Occult [facility] neg [facility] Occult [facility] neg [facility] Occult Blood neg [facility] Stool specimen (specimen) 04/22/1998 Arcelia Rodriguez GATE GUARD-REINFORCING STEEL MACHINE OPERATOR LAB - POINT OF CARE ORDERABLES Performing Organization Address [facility] Co de Phone Number [facility] * (ABNORMAL) PAP SMEAR 1 SLIDE (04/22/1998 12:00 AM ENGRAVER JEWELRY) HM Pap Smear Per pt: Negative [facility] Other (qualifier value) 04/22/1998 Narrative [facility] - 04/22/1998 12:00 AM ENGRAVER JEWELRY This external order was created through the Results Console. Historical Provider LAB - PATHOLOGY/C YTOLOGY ORDERABLES Performing Organization Address City/[facility] Co de Phone Number [facility] Care Teams Jewelry Engraver Relationship Specialty Start Date End Date Pankaj Braun MD [facility] [address] [place] [address] PCP - General Family Medicine 12/25/22 Mayra Smith RN Care Strategy Analyst 11/25/19
--- OUTSIDE RECORDS SUMMARY | 2024-06-08 18:19 | XMS_ITS | Clinical Summary ---
Author Organization [facility] [address] Address [address] [place] [id number] Care Team Providers Care Varnishing Machine Operator Name Role Phone Pankaj Braun MD Primary Care Provider [phone] Clara Montano Unavailable [phone] Sakshi Lazar MD Unavailable [phone] Carlos Lakhain MD Unavailable Allergies No known active allergies Medications cholecalciferol (VITAMIN D-3) 68729 unit tablet Take 1 tablet (10,000 Units [...] 06/19/2022 Assessment & Plan (03/15/2023 6:52 AM POULTRY SCIENTIST): Diagnosed on colonoscopy from 05/2022. 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 Repeat colonoscopy 05/2022 with one 2mm tubular adenoma. Mother with colon cancer in her late 70s. Given age will defer further colon cancer surveillance. Assessment & Plan (05/28/2022 3:52 PM POULTRY SCIENTIST): Two tubular adenomas on colonoscopies 2015. Mother with colon cancer in her late 70s. Patient due for surveillance we will order colonoscopy Liver cyst 05/28/2022 Assessment & Plan (05/28/2022 3:56 PM POULTRY SCIENTIST): Multiple liver cysts Noted incidentally on CT from 04/2022. We will discuss with patient regarding multiphase MRI next visit Encounter for Medicare annual wellness exam 11/2021 Assessment & Plan (05/08/2023 9:57 AM POULTRY SCIENTIST): A(n) yearly Medicare Annual Wellness Visit has [...] 07/26/2021 Assessment & Plan (06/22/2022 3:07 PM POULTRY SCIENTIST): Continue diet as tolerated; protein intake should be emphasized Ensure as meal supplement is okay, 1/2-1 can between meals 1-2ce a day May begin regular exercise with light weight as before Continuing atorvastatin Assessment & Plan (05/04/2022 10:40 AM POULTRY SCIENTIST): LDL is 84 mg/dL Under control, will [...] 05/20/2021 Assessment & Plan (05/20/2021 1:52 PM POULTRY SCIENTIST): A initial well visit to establish care [...] 01/13/2018 Assessment & Plan (05/04/2022 10:40 AM POULTRY SCIENTIST): Symptoms are low level No prescription therapy [...] goiters Eczema 04/17/2010 Eczema of eyelid 04/07/2010 Encounters Date Type Department Care Team Description 06/08/2024 Telephone [facility] Convenient Care at [address] [address] Pankaj Braun MD 05/12/2024 12:48 PM POULTRY SCIENTIST - 05/12/2024 11:59 PM POULTRY SCIENTIST Hospital Encounter [facility] [address] [place] [address] Chronic abdominal pain; Liver cyst Discharge Disposition: Discharge to home or self care 05/11/2024 Telephone [facility] Gastroenterology at [address] [place] [address] Stacy Cabrera MA 05/01/2024 Telephone [facility] Gastroenterology at [address] [place] [address] Cherelle Forbes LPN 04/28/2024 1:00 PM POULTRY SCIENTIST Office Visit [facility] Gastroenterology at [address] [place] [address] Carlos Lakhani MD Lymphocytic colitis (Primary Dx); Chronic abdominal pain; Liver cyst 03/10/2024 10:30 AM POULTRY SCIENTIST - 03/10/2024 11:59 PM POULTRY SCIENTIST Hospital Encounter [facility] Diabetic Education [address] [facility] [address] [place] [address] Bowden, Tanika Jarrell RD Macrocytosis; Weight loss Discharge Disposition: Discharge to home or self care from Last 3 Months Immunizations Immunization Administration Dates Next Due COVID-19 mRNA (Alerts) 0.3 m L (30 mcg) vaccine (12 [...] 02/14/2004 ZOSTER LIVE 01/25/2012 ZOSTER Recombinant 06/07/2018,11/09/2017 Surgical History Surgery Date Site/Laterality Comments POSTERIOR LAMINECTOMY / DECOMPRESSION LUMBAR SPINE CATARACT EXTRACTION CARPAL TUNNEL RELEASE RETINA SURGERY MOHS SURGERY BLADDER SURGERY prolaps VAGINAL PROLAPSE REPAIR HAND SURGERY right hand joint degeneration OOPHORECTOMY 04/22/1986 - 04/21/1987 Left Left first, Right removed with hysterectomy BASAL CELL CARCINOMA EXCISION right leg SQUAMOUS CELL CARCINOMA EXCISION right leg HYSTERECTOMY 04/22/1988 - 04/21/1989 TONSILLECTOMY 04/22/1946 - 04/21/1947 COLONOSCOPY 04/22/2014 - 04/21/2015 Medical History Medical History Date Comments Allergic GERD (gastroesophageal reflu x disease) Sleep difficulties Eczema Psoriasis Carpal tunnel syndrome Vocal cord dysfunction Hyperlipidemia 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 History of endometriosis resolve d s/p hysterectomy Arthritis 2011 Asthma childhood Cancer (CMS/HCC) (HCC) basal cell cancer;2020 squamous cell cancer Family History Medical History Relation Name Comments Lymphoma Brother blood cancer Father Colon cancer Mother Diverticulitis Mother Relation Name Status Comments Brother Alive Father Mother Social History Tobacco Use Types Packs/Day Years [...] Master's degree (e.g., MA, MS, Sherri, MEd, OBSTETRIC ASSISTANT, MARJORIE) 05/17/2021 Comments No Sex and Gender Information Value Date Recorded Sex Assigned at Not on file Legal Sex Female 12:40 AM POULTRY SCIENTIST Gender Identity Female 07/17/2021 4:37 PM CDT Sexual Orientation Straight 07/17/2021 4: 37 PM CDT 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 Not on file Obstetrics History Last Filed Vital Signs Vital Sign Reading Time Taken Comments Blood Pressure 103/59 04/28/2024 1:14 PM POULTRY SCIENTIST Pulse 82 04/28/2024 1:14 PM POULTRY SCIENTIST Temperature 36 C (96.8 F) 10/29/2023 10:39 AM CDT Respiratory Rate 18 10/29/2023 10:39 AM CDT Oxygen Saturation 96% 04/28/2024 1:14 PM POULTRY SCIENTIST Inhaled Oxygen Concentration - - Weight 52.2 kg (115 lb) 05/06/2024 1:49 PM POULTRY SCIENTIST Height 149.9 cm (4' 11 ) 04/28/2024 1:14 PM POULTRY SCIENTIST Body Mass Index 23.23 04/28/2024 1:14 PM POULTRY SCIENTIST Plan of Treatment Health Maintenance Due Date Last Done Comments Hepatitis B Screening 06/28/1958 Covid-19 Vaccine ( season) 2023 03/04/2023, 10/15/2022, 02/02/2022, Additional history exists Influenza Vaccine (#1) 2023 , 02/08/2023, 01/25/2022, Additional history exists Fall Risk Assessment 05/08/2024 05/08/2023, 06/19/2022, 05/22/2022, Additional history exists Well Visit 65+ 05/08/2024 05/08/2023, 01/25/2022 Depression Screening 10/28/2024 10/29/2023, 10/29/2022, 06/19/2022, Additional history exists DTaP/Tdap/Td Vaccine (4 - Tdap) 04/21/2025 02/14/2004, 01/21/2004, 04/22/1993 Postponed from 02/13/2014 (Insurance / Financial) Osteoporosis Screening-Bone Density Scan 05/16/2025 05/16/2023, 01/03/2018, 01/03/2018 Pneumococcal vaccine 65+ Completed 015, 06/08/2014, 04/22/2006 Zoster Vaccine Completed 06/07/2018, 10/21, 01/25/2012 Procedures Procedure Name Priority Date/Time Associated Diagnosis Comments MRI ABDOMEN LIVER W WO CONTRAST Schedule Routine, Read Routine (OP Routine) 05/12/2024 2:13 PM POULTRY SCIENTIST Chronic abdominal pain Liver cyst DEXA AXIAL SKELETON BONE DENSITY 1 OR MORE SITES Schedule Routine, Read Routine (OP Routine) 05/16/2023 9:59 AM POULTRY SCIENTIST 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 PS: PS Report ID: [id number] Reading Location: [place] [address] Procedure Note Amy Jones, DO - 05/12/2024 EXAM DESCRIPTION: MRI ABDOMEN [...] Amy Jones D.O. PS: PS Report ID: [id number] Reading Location: [place] [address] Carlos Lakhani MD [facility] MRI PROCEDURES Final Result * Dexa Axial Skeleton Bone Density 1 or 2 Site (05/16/2023 9:59 AM POULTRY SCIENTIST) Anatomical Region Laterality Modality Body N/A Other 05/16/2023 5:48 PM POULTRY SCIENTIST Narrative 05/16/2023 5:49 PM POULTRY SCIENTIST EXAM DESCRIPTION: DEXA AXIAL SKELETON BONE DENSITY 1 OR MORE SITES REASON FOR STUDY: 82 y/o year old F with given history of: screen osteoporosis, Osteoporosis screening Screening. Utilities Equipment Repairer/Model: [email or web address] SL (S/N [id number]) CLINICAL INFORMATION: Current height: 59 inches Maximum [...] Westley Lopez M.D. MF: ASHLEY Report ID: [id number] Reading Location: [address] Note Westley Lopez MD - 05/16/2023 EXAM DESCRIPTION: DEXA AXIAL SKELETON BONE DENSITY 1 OR MORE SITES REASON FOR STUDY: 82 y/o year old F with given history of: screen osteoporosis, Osteoporosis screening Screening. Utilities Equipment Repairer/Model: [email or web address] SL (S/N [id number]) CLINICAL INFORMATION: Current height: 59 inches Maximum [...] Westley Lopez M.D. MF: ASHLEY Report ID: [id number] Reading Location: [place] [address] Pankaj Braun MD IMG DXA PROCEDURES Final Re sult from Last 3 Months or Most Recently Relevant to Health Maintenance Insurance MEDICARE [facility] MEDICARE [facility] MEDICARE [facility] Advance Directives For more information, please contact: [phone] * Full Code (Latest Code Status on File) Date Activated Date Inactivated Comments 06/13/2022 11:17 AM 06/13/2022 4:51 PM * Full Code Date Activated Date Inactivated Comments 06/13/2022 11:17 AM 06/13/2022 11:17 AM Care Teams Varnishing Machine Operator Relationship Specialty Start Date End Date Pankaj Braun MD [address] [place] [address] PCP - General Family Medicine 05/17/21 Clara Montano PA [address] [place] [address] Physician Solution Lead Dermatology 05/17/21 Sakshi Lazar MD [address] [facility] [address] [place] [address] Consulting Physician Allergy and Immunology 05/17/21 Carlos Lakhani MD [address] [place] [address] [address] MUSTAFA [address] [place] [id number] Consulting Physician Gastroenterology 06/19/22
--- OUTSIDE RECORDS SUMMARY | 2024-06-08 18:19 | XMS_ITS | Referral Summary ---
Author Organization [facility] Address [address] [facility] [place] [address] Care Team Providers Care Truck Greaser Name Role Phone Mayra Smith RN Unavailable Unavailable Pankaj Braun MD Primary Care Provider Source Comments [facility],non-owned Affiliates and Associated Physician Practices is amultiple site organization consisting of ambulatory clinics and hospital sitesin [place], [place], [place] and [place]. This disclosure is being madepursuant to the Care Everywhere program and may not contain all information available regarding this patient. Last updated 18.[facility] Encounters Date Type Department Care Team Description 05/15/2024 Travel 05/15/2024 10:00 AM SKIDDER RUNNER Office Visit [facility] - Dermatology [address] [place] [address] [place] [phone] Clara Montano PA Neoplasm of uncertain behavior of skin (Primary Dx); Seborrheic keratoses from Last 3 Months Allergies Active Allergy Reactions Criticality Noted Date Comments Contrast-Iodinated Agents Fo r Ct/Other Shortness of Breath High 01/08/2024 Medications * Be aware that medications may not be up to date on this document. Alwaysverify current medications with the patient. Medication Sig Dispensed Refills Start Date End Date Status Cholecalciferol (VITAMIN D3) 94416 UNITS TABS Take 1 (one) tablet by mouth every 7 days Active Flaxseed, Linseed, (FLAX SEED OIL) 1000 MG Take 2,000 (two thousand) mg by mouth once daily Active albuterol HFA (PROAIR HFA) 108 (90 BASE) MCG/ACT inhalerIndications:SO B (shortness of breath),Cough,Wheezin g Inhale 2 puffs by mouth every 4 hours as needed for Shortness of Breath, Wheezing or Cough 1 Inhaler 3 10/29/2017 Active fluticasone hfa 44 (FLOVENT HFA) 44 MCG/ACT inhalerIndications:Mi ld persistent asthma without complication (HCC) Inhale 2 puffs by mouth 2 times daily 1 Inhaler 6 04/17/2019 Active Additional Information Patient not taking.Reported on 01/08/2024 montelukast (SINGULAIR) 10 MG tablet 09/26/2019 Active Fluocinolone Acetonide Scalp 0.01 %Indications:Other psoriasis Apply to scalp leave on for several hours or overnight. Wash off with salicylic acid shampoo . 2-3 times a week 118 mL 3 01/01/2020 Active azelastine (ASTELIN) 0.1 % nasal spray 05/27/2020 Active clobetasol (TEMOVATE) 0.05 % ointmentIndications:O ther psoriasis Apply 0.5 Each to affected area 2 times daily 30 g 05/02/2021 Active atorvastatin (LIPITOR) 20 MG tablet TAKE 1 TABLET BY MOUTH EVERY DAY 90 tablet 1 06/29/2021 Active meloxicam (MOBIC) 15 MG tabletIndications:Rosa covarrubias osteoarthritis of right hip Take 1 (one) tablet by mouth once daily 90 tablet 3 09/26/2021 Active calcipotriene (Dovonex) 0.005 % solutionIndications:O ther psoriasis For scalp Apply to affected area, twice daily. 60 mL 3 01/08/2022 Active betamethasone dipropionate 0.05 % lotionIndications:Oth er psoriasis Apply to scalp twice daily. 30 days supply. 60 mL 5 01/08/2022 Active budesonide 2 MG compound suppository 06/18/2022 Acti ve ketoconazole (Nizoral) 2 % shampooIndications:Ot her seborrheic dermatitis Apply to wet hair, leave on for 3 minutes, then rinse; three times weekly. 30 days supply 120 mL 11 11/09/2022 Active tacrolimus (Protopic) 0.1 % ointmentIndications:O ther psoriasis Apply 1 g to affected area 2 times daily For face including eyelids 60 g 3 11/09/2022 Active budesonide (Entocort EC) 3 MG capsule 09/11/2022 Active Cholecalciferol 250 MCG (43667 UT) TABS Take 1 (one) tablet by mouth Active Lagevrio 200 MG capsule 11/28/2022 Active Qvar RediHaler 40 MCG/ACT inhaler 05/05/2023 Active fluorouracil (Efudex) 5 % creamIndications:AK (actinic keratosis) Apply to affected areas twice daily for two weeks. 40 g 01/09/2024 Active clindamycin (Cleocin) 1 % lotion Apply to entire face once daily. 30 day supply. 60 mL 1 05/21/2024 Active Active Problems Problem Noted Date Diagnosed Date [...] Overview (01/13/2021): Followed in [facility] in [facility] Closed head injury 11/21/2020 Subdural hematoma 11/21/2020 Pain in right hip 03/21/2020 Low back pain 01/06/2020 Muscle weakness (generalized) 01/06/2020 Pain management contract signed--11/201911/23/19 20 Spinal stenosis of lumbar region 10/07/2019 Seborrheic keratoses, inflamed 06/03/2018 Assessment & Plan (05/30/2020 2:41 PM SKIDDER RUNNER): Destruction of large SK left cheek and [...] scalp Assessment & Plan (05/30/2020 2:40 PM SKIDDER RUNNER): Scalp Recent flare post back surgery has calmed down Fluocinolone oil prn Betamethasone lotion dovonex solution History of skin cancer in adulthood 10/16/2017 Assessment & Plan (11/29/2020 3:03 PM CDT): No evidence of reoccurrence on exam today Self exams Photoprotection including SPF 30+ daily Assessment & Plan (05/30/2020 2:39 PM SKIDDER RUNNER): NER Skin exams Photoprotection 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 (AF LURIA, FLUZONE TRIVALENT; 6MO+) (IIV3) 01/26/2016,12/23/2010,03/28/2010 Covid Charlie App primary monoval ent 12+ yr 0.3mL Purple cap 06/09/2020,05/19/2020 DT (AGE 0-7) 01/21/2004,04/22/1993 INFLUENZA VACCINE 01/28/2020,01/07/2019,01/21/20 15 INFLUENZA VACCINE, HIGH-DOSE , QUADR. (FLUZONE HIGH-DOSE QUADRIVALENT; 65Y+), 0.7 ML (HD-IIV4) 02/22/2012 INFLUENZA VACCINE, QUADR. (A FLURIA, FLUZONE QUADRIVALENT; 6MO+) (IIV4) 01/20/2015 MMR 08/09/2018 PNEUMOCOCCAL PPSV23 01/20/2015,04/22/2006 Pneumococcal Pcv13 Conj 06/08/2014 TD (ADULT), 5 LF TETANUS TOX OID, ADSORBED, PF 02/14/2004 ZOSTER VACCINE, LIVE 01/25/2012 Zoster Hzv Vacc Recombinant Inj Im 06/07/2018, Social History Tobacco Use Types Packs/Day Years [...] Mass Index 25.85 08/01/2021 8:42 AM CDT Plan of Treatment Upcoming Encounters Date Type Department Care Team (Late st Contact Info) Description 09/16/2024 11:30 AM CDT Office Visit [facility] Dermatology [address] [place] [address], [facility] [place] [address] Lane Loja MD [address] [place] [address] 3 [place] [phone] Procedures Procedure Name Priority Date/Time Associated Diagnosis Comments HI DESTRUCT BENIGN LESION, 1-14 Routine 05/15/2024 10:35 AM SKIDDER RUNNER Seborrheic keratoses HI TANGNTL BX SKIN SINGLE LES Routine 05/15/2024 10:35 AM SKIDDER RUNNER Neoplasm of uncertain behavior of skin DERMATOPATHOLOGY Routine 05/15/2024 12:0 0 AM SKIDDER RUNNER Neoplasm of uncertain behavior of skin DEXA BONE DENSITY AXIAL SKELETON Routine 01/03/2018 8:29 AM CDT Post-menopause Healthcare maintenance from Last 3 Months or Most Recently Relevant to Health Maintenance Results * HI DESTRUCT BENIGN LESION, 1-14 (05/15/2024 10:35 AM SKIDDER RUNNER) Narrative Clara Montano PA - 05/15/2024 10:35 AM SKIDDER RUNNER Clara Montano PA 05/15/2024 5:22 PM Derm [...] Clara WRIGHT PROCEDURE/MINOR SURG ICAL ORDERABLES * HI TANGNTL BX SKIN SINGLE LES (05/15/2024 10:35 AM SKIDDER RUNNER) Narrative Clara Montano PA - 05/15/2024 10:35 AM SKIDDER RUNNER Clara Montano PA 05/15/2024 5:22 PM Derm [...] (Specimen Count = 1) (05/15/2024 12:00 AM SKIDDER RUNNER) Case Report Dermatopathology Report Case: [id number] Authorizing Provider: Clara Montano PA Collected: 05/15/2024 12:00 AM Ordering Location: [facility] - Received: 05/18/2024 06:07 AM Dermatology Pathologist: Mallorie Davis MD Specimen: Skin, left brow 6:13 PM [facility] [[email or web address]] DERMATOPATHOLOGY LABORATORY Final Diagnosis Specimen A. SKIN, left brow: CHRONIC PERIFOLLICULITIS (L73.8) (see microscopic description) 6:13 PM [facility] [[email or web address]] DERMATOPATHOLOGY LABORATORY Clinical History NMSC 6:13 PM [facility] [[email or web address]] DERMATOPATHOLOGY LABORATORY Gross Description Specimen A: Received is one formalin filled container labeled with the patient's name and designated left brow. The specimen consists of a shave biopsy measuring 6x5x1 mm. Jar 0. 6:13 PM [facility] [[email or web address]] DERMATOPATHOLOGY LABORATORY Microscopic Description Specimen A. SKIN, left brow: Sections show a perifollicular lymphohistiocytic infiltrate. Additional deeper sections were obtained and reviewed. 6:13 PM [facility] [[email or web address]] DERMATOPATHOLOGY LABORATORY Disclaimer An external and internal positive and negative controls are appropriate for the histochemical, immunohistochemical and immunofluorescence stain(s) in this case (if any), except where stated explicitly. The performance characteristics of the stain(s) cited in this report were developed and its performance characteristic determined by the Dermatopathology Laboratory at [facility], directed by Dr. Yoli Davis. These tests need not be, and therefore are not, approved by the [place] Food and Drug Administration. The tests are used for clinical purposes. Billing Codes Specimen Charges Stain Charges 45729 1 6:13 PM [facility] [[email or web address]] DERMATOPATHOLOGY LABORATORY Embedded Images 6:13 PM [facility] [[email or web address]] DERMATOPATHOLOGY LABORATORY Pathology/Cytolog y TISSUE SPECIMEN FROM SKIN / Unknown 05/15/2024 05/18/2024 6:07 AM SKIDDER RUNNER Clara WRIGHT LAB - PATHOLOGY/CYTO LOGY ORDERABLES DERMATOPATHOLOGY LABORATORY [facility] Department of Dermatology [address], [address] [phone] * BONE DENSITY AXIAL SKELETON(1OR MORE SITES)[id number] (01/03/2018 8:29 AM CDT) Anatomical Region Laterality Modality Mammography 01/03/2018 2:20 PM CDT Narrative 01/03/2018 4:35 PM CDT Examination: Dual energy x-ray absorptiometry of the lumbar spine and hip. Clinical Indication: 77-year-old postmenopausal female Findings: Detailed data from the exam is sent separately to the ordering physician and is also available on [facility], the Radiology Department's computerized picture archive system. [...] ordering physician and is also available on [employer] [facility], the Radiology Department's computerized picture archive system. [...] D.O. on01/03/2018 4:35 PM . Arcelia Rodriguez WELFARE MANAGER-MEDICAL PLANNER DEXA ORDERA BLES from Last 3 Months or Most Recently Relevant to Health Maintenance Administered Medications Care Teams Truck Greaser Relationship Specialty Start Date End Date Pankaj Braun MD [address] [facility] [address] [place] [address] PCP - General Family Medicine 12/25/22 Mayra Smith, tacker elastic bandBlast Furnace Operator 11/25/19
--- OUTSIDE RECORDS SUMMARY | 2024-06-08 18:19 | XMS_ITS | Encounter Summary ---
Author Organization [facility] Address [address] [place] [address] Care Team Providers Care Potline Monitor Name Role Phone Arcelia Rodriguez APRN-JAVA LEAD ENGINEER Primary Care Provi reese Mayra Smith RN Unavailable [facility] Pankaj Braun MD Primary Care Provider [phone] Reason for Visit * Reason Onset Date Comments Pain Leg 06/03/2018 1st attempt to R /O triage for leg/hip/groin pain, LVM Encounter Details Date Type Department Care Team (Late st Contact Info) Description 06/03/2018 Telephone [facility] Medicine [address] [address] Arcelia Rodriguez MARKETING PROPOSAL SPECIALIST-JAVA LEAD ENGINEER [address] [facility] [place] [phone] Pain Leg (1st attempt to R/O triage for leg/hip/groin pain, LVM) Social History Tobacco Use Types Packs/Day Years [...] encounter Miscellaneous Notes * Telephone Encounter - Audrey Harrison RN - 06/03/2018 9:31 AM CST 1st attempt to contact patient to R/O triage for leg/hip/groin area pain. Telephone call to patient. Call answered by voicemail. Left voice mail message requesting call back. Call back phone number provided. AM/ZACK ARY SPECIAL EDUCATOR documented in this encounter Plan of Treatment Upcoming Encounters Date Type Department Care Team (Late st Contact Info) Description 09/16/2024 11:30 AM CDT Office Visit [facility] - Dermatology [address] [place] [address], [place] [address] [address] Loja MD [address] [place] [address] 3 [place] [phone] documented as of this encounter Visit Diagnoses Not on filedocumented in this encounter Care Teams Potline Monitor Relationship Specialty Start Date End Date Arcelia Rodriguez, MARKETING PROPOSAL SPECIALIST-JAVA LEAD ENGINEER PCP - General 08/23/17 12/24/22 Pankaj Braun MD [address] [place] [phone] PCP - General Family Medicine 12/25/22 Mayra Smith, slip makerBuilding Architectural Designer 11/25/19 documented as of this encounter
--- OUTSIDE RECORDS SUMMARY | 2024-06-08 18:19 | XMS_ITS | Encounter Summary ---
Author Organization [facility] Healthcare Address [address] [place] [address] Care Team Providers Care Director Investor Relations Name Role Phone Pankaj Braun MD Primary Care Provider Clara Montano Unavailable [phone] Sakshi Lazar MD Unavailable Carlos Lakhani MD Unavailable Encounter Details Date Type Department Care Team (Late st Contact Info) Description 06/08/2024 Telephone [facility] Medical Group Convenient Care at [address] [address] Pankaj Braun MD [address] [place] [address] [address] [place] [address] Social History Tobacco Use Types Packs/Day Years Used Date Smoking Tobacco: Former Cigarettes 0 04/22/1959 - 04/22/1961 Passive Smoke Exposure: Past Smokeless Tobacco: Never AUDIT-C Answer Date Recorded Q1: How often [...] Master's degree (e.g., MA, MS, Sherri, MEd, RADIO DIRECTOR, MARJORIE) 05/17/2021 Comments No Sex and Gender Information Value Date Recorded Sex Assigned at Not on file Legal Sex Female 12:40 AM WOOD DIE MAKER Gender Identity Female 07/17/2021 4:37 PM CDT Sexual Orientation Straight 07/17/2021 4: 37 PM CDT 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 She denies cold/flu sxs. Pt asking what to do. Informed pt she can be seen [facility] and evaluated but she might have to be sent to ED for further workup if the provider thinks its needed or she can call her PCP for advise. Pt stated she usually goes to [facility] but thinks she can'twait to go that far and needs to be seen sooner and stated she wants to go to [place] because she feels its urgent. She reports her is at home with her and will drive her there. DIE MAKER documented in this encounter Plan of Treatment Not on file documented as of this encounter Visit Diagnoses Not on filedocumented in this encounter Care Teams Director Investor Relations Relationship Specialty Start Date End Date Pankaj Braun MD [address] [place] [address] PCP - General Family Medicine 05/17/21 Clara Montano PA [address] [place] [address] Physician Software Quality Specialist Dermatology 05/17/21 Sakshi Lazar MD [address] [facility] [address] [place] [address] Consulting Physician Allergy and Immunology 05/17/21 Carlos Lakhani MD [address] [place] [address] [address] MUSTAFA [address] [place] [address] Consulting Physician Gastroenterology 06/19/22 documented as of this encounter
--- OUTSIDE RECORDS SUMMARY | 2024-06-08 18:19 | XMS_ITS | Encounter Summary ---
Author Organization [facility] Address [address] [facility] [place] [address] Care Team Providers Care Brewery Technician Name Role Phone LiangArcelia leonard APRN-METALIZER FIELD OPERATION Primary Care Provi reese Mayra Smith RN Unavailable Unavailable Pankaj Braun MD Primary Care Provider [phone] Reason for Visit * Reason Onset Date Comments MEDICATION REFILL 09/14/2021 Encounter Details Date Type Department Care Team (Late Contact Info) Description 09/14/2021 Refill [facility] [address] [place] [address] Aston Coon MD [address] [facility] [address] [place] [address] MEDICATION REFILL Social History Tobacco Use Types [...] Office Visit [facility] - Dermatology [address] [place] [address], [facility] [place] [phone] Lane Loja MD [address] [place] [address] documented as of this encounter Visit Diagnoses Diagnosis Primary osteoarthritis of right hip Primary localized osteoarthrosis, pelvic region and thigh documented in this encounter Care Teams Brewery Technician Relationship Specialty Start Date End Date Arcelia Rodriguez, FILLING MACHINE TENDER-METALIZER FIELD OPERATION PCP - General 08/23/17 12/24/22 Pankaj Braun MD [address] [address] PCP - General Family Medicine 12/25/22 Mayra Smith RN Care Associate Attorney 11/25/19 documented as of this encounter
--- OUTSIDE RECORDS SUMMARY | 2024-06-08 18:19 | XMS_ITS | Clinical Summary ---
Author Organization [facility] Address [address] [place] [address] Care Team Providers Care Actuarial Intern Name Role Phone Mayra Smith RN Unavailable Unavailable Pankaj Braun MD Primary Care Provider Source Comments [facility],non-owned Affiliates and Associated Physician Practices is amultiple site organization consisting of ambulatory clinics and hospital sitesin [place], [place], [place] and [place]. This disclosure is being madepursuant to the Care Everywhere program and may not contain all information available regarding this patient. Last updated 18.[facility] Allergies Active Allergy Reactions Criticality Noted Date Comments Contrast-Iodinated Agents Fo r Ct/Other Shortness of Breath High 01/08/2024 Medications * Be aware that medications may not be up to date on this document. Always verify current medications with the patient. Medication Sig Dispensed Refills Start Date End Date Status Cholecalciferol (VITAMIN D3) 83465 UNITS TABS Take 1 (one) tablet by [...] 06/29/2021 Active meloxicam (MOBIC) 15 MG tabletIndications:Rosa marci osteoarthritis of right hip Take 1 (one) [...] MG capsule 09/11/2022 Active Cholecalciferol 250 MCG (16313 UT) TABS Take 1 (one) tablet by [...] & Plan: Two tubular adenomas on colonoscopies 2015. Mother [...] Overview (01/13/2021): Followed in [facility] in [facility] Closed head injury 11/21/2020 Subdural hematoma 11/21/2020 Pain in right hip 03/21/2020 Low back pain 01/06/2020 Muscle weakness (generalized) 01/06/2020 Pain management contract signed--11/201911/23/19 Spinal stenosis of lumbar region 10/07/2019 Seborrheic keratoses, inflamed 06/03/2018 Assessment & Plan (05/30/2020 2:41 PM LINOTYPE MECHANIC): Destruction of large SK left cheek and [...] scalp Assessment & Plan (05/30/2020 2:40 PM LINOTYPE MECHANIC): Scalp Recent flare post back surgery has calmed down Fluocinolone oil prn Betamethasone lotion dovonex solution History of skin cancer in adulthood 10/16/2017 Assessment & Plan (11/29/2020 3:03 PM CDT): No evidence of reoccurrence on exam today Self exams Photoprotection including SPF 30+ daily Assessment & Plan (05/30/2020 2:39 PM LINOTYPE MECHANIC): NER Skin exams Photoprotection 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) 10/16/2017 Assessment & Plan (11/29/2020 3:04 PM CDT): No evidence of reoccurrence on exam today Self exams Photoprotection including SPF 30+ daily Assessment & Plan (05/30/2020 2:39 PM LINOTYPE MECHANIC): NER Skin exams photoprotection Non-toxic nodular goiter [...] of skin 10/16/2017 01/13/2018 Hyperlipidemia 06/02/2010 05/09/2018 Encounters Date Type Department Care Team Description 05/15/2024 10:00 AM LINOTYPE MECHANIC Office Visit [facility] - Dermatology [address] [place] [address] [phone] Clara Montano, PA Neoplasm of uncertain behavior of skin (Primary Dx); Seborrheic keratoses 05/15/2024 Travel from Last 3 Months Immunizations Name Administration Dates Next Due INFLUENZA VACCINE, TRIV. (AF LURIA, FLUZONE TRIVALENT; 6MO+) (IIV3) 01/26/2016,12/23/2010,03/28/2010 Covid DecisionDesk primary monoval ent 12+ yr 0.3mL Purple [...] Zoster Hzv Vacc Recombinant Inj Im 06/07/2018, Family History Medical History Relation Name Comments Cancer - Prostate Brother cured Lymphoma Brother Leukemia Father None Known Maternal Aunt None Known Maternal Grandfather None Known Maternal Grandmother None Known Maternal Uncle Cancer - Breast Mother double maste ctomy-believed to be cancer Cancer - Colon Mother None Known Other None Known Paternal Aunt None Known Paternal Grandfather None Known Paternal Grandmother None Known Paternal Uncle Asthma Neg Hx CVA Neg Hx Cancer - Other Neg Hx Cancer - Skin, Melanoma Neg Hx Cancer - Skin, Non Melanoma Neg Hx Eczema Neg Hx Hemophilia Neg Hx Psoriasis Neg Hx Relation Name Status Comments Brother Alive Father (Age 62) Maternal Aunt Maternal Grandfather Maternal Grandmother Maternal Uncle Mother (Age 79) Other Paternal Aunt Paternal Grandfather Paternal Grandmother Paternal Uncle Social History Tobacco Use Types Packs/Day Years [...] Office Visit [facility] - Dermatology [address] [place] [address] [address] Loja MD [facility] [place] [address] Health Maintenance Due Date Last Done Comments MEDICARE AWV 12 MONTHS 1940 DTAP/TDAP/TD VACCINES (4 - Td or Tdap) 02/13/2014 02/14/2004, 01/21/2004, 04/22/1993 Respiratory Syncytial Virus (RSV) Vaccine Pt: or over 60 yrs (1 - 1-dose 75+ series) 2016 COVID-19 VACCINE ( season) 2023 01/25/2022, 04/27/2021, 06/09/2020, Additional history exists INFLUENZA VACCINE (#1) 2023 , 01/04/2022, 01/09/2021, Additional history exists DEPRESSION SCREENING 04/22/2024 PNEUMOCOCCAL VACCINE 50+ Completed 015, 06/08/2014, 04/22/2006 ZOSTER VACCINE Completed 06/07/2018, 10/22, 01/25/2012 BONE DENSITY TESTING Completed 05/16/2023, 01/04/20 18 HEPATITIS B VACCINE Aged Out No longe r eligible based on patient's age to complete this topic HIB VACCINE Aged Out No longer eligi ble based on patient's age to complete this topic HPV VACCINE Aged Out No longer eligi ble based on patient's age to complete this topic MENINGOCOCCAL (Group B) VACCINE Aged Out No longer eligible based on patient's age to complete this topic MENINGOCOCCAL VACCINE Aged Out No oswald lester eligible based on patient's age to complete this topic Opioid Medication Agreement - Annual Discontinued Procedures Procedure Name Priority Date/Time Associated Diagnosis Comments [place] DESTRUCT BENIGN LESION, 1-14 Routine 05/15/2024 10:35 AM LINOTYPE MECHANIC Seborrheic keratoses TN TANGNTL BX SKIN SINGLE LES Routine 05/15/2024 10:35 AM LINOTYPE MECHANIC Neoplasm of uncertain behavior of skin DERMATOPATHOLOGY Routine 05/15/2024 12:0 0 AM LINOTYPE MECHANIC Neoplasm of uncertain behavior of skin DEXA BONE DENSITY AXIAL SKELETON Routine 01/03/2018 8:29 AM CDT Post-menopause Healthcare maintenance from Last 3 Months or Most Recently Relevant to Health Maintenance Results * TN DESTRUCT BENIGN LESION, 1-14 (05/15/2024 10:35 AM LINOTYPE MECHANIC) Narrative Clara Montano PA - 05/15/2024 10:35 AM LINOTYPE MECHANIC Clara Montano PA 05/15/2024 5:22 PM Derm [...] Clara WRIGHT PROCEDURE/MINOR SURG ICAL ORDERABLES * TN TANGNTL BX SKIN SINGLE LES (05/15/2024 10:35 AM LINOTYPE MECHANIC) Narrative Clara Montano PA - 05/15/2024 10:35 AM LINOTYPE MECHANIC Clara Montano PA 05/15/2024 5:22 PM Derm [...] (Specimen Count = 1) (05/15/2024 12:00 AM LINOTYPE MECHANIC) Case Report Dermatopathology Report Case: [id number] Authorizing Provider: Clara Montano PA Collected: 05/15/2024 12:00 AM Ordering Location: [facility] - Received: 05/18/2024 06:07 AM Dermatology Pathologist: Mallorie Davis MD Specimen: Skin, left brow 6:13 PM [facility] Final Diagnosis Specimen A. SKIN, left brow: CHRONIC PERIFOLLICULITIS (L73.8) (see microscopic description) 6:13 PM [facility] Clinical History NMSC 6:13 PM [facility] Gross Description Specimen A: Received is one formalin filled container labeled with the patient's name and designated left brow. The specimen consists of a shave biopsy measuring 6x5x1 mm. Jar 0. 6:13 PM [facility]ERMAT[facility] Microscopic Description Specimen A. SKIN, left brow: Sections show a perifollicular lymphohistiocytic infiltrate. Additional deeper sections were obtained and reviewed. 6:13 PM [facility]ER[facility] Disclaimer An external and internal positive and negative controls are appropriate for the histochemical, immunohistochemical and immunofluorescence stain(s) in this case (if any), except where stated explicitly. The performance characteristics of the stain(s) cited in this report were developed and its performance characteristic determined by the Dermatopathology Laboratory at [facility], directed by Dr. Yoli Davis. These tests need not be, and therefore are not, approved by the [place] Food and Drug Administration. The tests are used for clinical purposes. Billing Codes Specimen Charges Stain Charges 15235 1 6:13 PM [facility] Embedded Images 6:13 PM [facility] Pathology/Cytolog y TISSUE SPECIMEN FROM SKIN / Unknown 05/15/2024 05/18/2024 6:07 AM LINOTYPE MECHANIC Clara WRIGHT LAB - PATHOLOGY/CYTO LOGY ORDERABLES DERMATOPATHOLOGY LABORATORY [facility] Department of Dermatology [address], [address] [phone] * BONE DENSITY AXIAL SKELETON(1OR MORE SITES)[id number] (01/03/2018 8:29 AM CDT) Anatomical Region Laterality Modality Mammography 01/03/2018 2:20 PM CDT Narrative 01/03/2018 4:35 PM CDT Examination: Dual energy x-ray absorptiometry of the lumbar spine and hip. Clinical Indication: 77-year-old postmenopausal female Findings: Detailed data from the exam is sent separately to the ordering physician and is also available on [employer], the Radiology Department's computerized picture archive system. [...] ordering physician and is also available on [employer], the Radiology Department's computerized picture archive system. [...] D.O. on01/03/2018 4:35 PM . Arcelia Rodriguez CLOTH EXAMINER-TRACTOR OPERATOR BATTERY DEXA ORDERA BLES from Last 3 Months or Most Recently Relevant to Health Maintenance Care Teams Actuarial Intern Relationship Specialty Start Date End Date Pankaj Braun MD [address] [place] [address] PCP - General Family Medicine 12/25/22 Mayra Smith histopathologistReference Services Head 11/25/19
--- OUTSIDE RECORDS SUMMARY | 2024-06-08 18:19 | XMS_ITS | Continuity of Care Document ---
Author Organization [facility] Address [address] [place] [address] Phone Care Team Providers Care Television Antenna Installer Name Role Phone Tona Tate Unavailable Unavailable Allergies, Adverse Reactions, Alerts Substance Reaction Status Criticality No Known Allergies Active No Inform ation Procedures Procedure Date X-ray exam both knees, standing 016 X-ray exam knee, 1 or 2 views 6 Office/outpatient visit,[facility] 2015 Advance Directives Directive Yes / No Effective Date File Name No Information Encounters Encounter Description Practice Location Reason(s) For Visit Diagnoses Date Provider Providers Copied on Encounter Office/outpa tient visit,[facility], [address], [place], [place], [id number], [place] tel:[phone] [facility] left knee pain (chief complaint) Pain in left kneeChondromalaci a patellae, left knee 6 Arabella Carbone. [address], [place], [place], [id number] , [place]. tel:[phone] Referring Provider: Tona Gama, [facility], [place], [address] . tel:[phone] Family History Family Member Type Diagnosis Age At Onset Father Problem (finding) Cancer, unknown Mother Problem (finding) cancer of colon Immunizations Vaccine Date Status Comments pneumococcal polysaccharide vaccine, 23 valent administered Source: Other Provid er Flu (split) (3 yrs or older) administered Source: Other Provider Payers Payer name Insurance type Covered democrat ID Afshin carter(s) Medicare [place] WPS Part B [id number] [facility] CI [id number] Social History Type Description Quantity Date Captured Comments Alcohol Use Details Caffeine Use Details Unknown Tobacco Use Status Light cigarette smok er (1-9 cigs/day) Smoking Status Light tobacco smoker Smoking Tobacco Use Details Cigarette: Years Used 2 Cigarette: 0.05 Packs per day, Pack Year: 0.1 Sex Female Vital Signs Date / Time: Height Weight BMI Pulse Rate Blood Pressure Temperature Respiratory Rate Body Surface Area Head Circumference Head Circ. Percentile Wt./Bruce. Percentile BMI percentile Pulse Ox Inhaled Ox 2:09 PM 60.00 in 61.235 kg (135.00 lbs) 26.3 7 kg/m eter (2) Chief Complaint And Reason For Visit From encounter dated '12/05/2015 13:45'. left knee pain (chief complaint). Description: Ms Kebede is a 75 year old female who complains of left knee pain. She presents with pain, decreased rom, weakness, stiffness and swelling on the left side. She states that the symptoms have been acute traumatic and began on 07/26/2015. She indicates the injury occurred at home. Ling states that the symptoms began as the result of twisting. The symptoms occur occasionally. The problem is unchanged. Currently the patient states that the symptoms are mild-moderate. The pain is described as aching, sharp and throbbing. The symptoms occur intermittently. The patient is experiencing pain in the following location: lower leg on the left side. She also reports additional pain in the entire knee region on the left side. She started having lateral knee pain and radiated down to the lateral side of the lower leg. That has subsided. She developeda koenig's cyst, but it ruptured. She rates her worst pain as 7/10. She rates her current pain as 4/10. The symptoms are aggravated by ascending stairs, descending stairs, walking and bending and sitting for long periods of time. Ling states that the symptoms are relieved by ice, rest, stretching, physical therapy and OTC medicines. In addition to left knee pain the patient is also experiencing decreased mobility, difficulty going to sleep, limping, night pain, weakness, stiffness, tenderness and swelling. The patient has had a previous x-ray. She had xrays taken at [facility], but she only received the report and not the xrays. Prior NSAIDs include ibuprofen. Patient has had previous therapy. Patient has had no prior surgeries. There were no previous episodes. She experienced no previous injury. Reason For Referral Reason For Referral No Information Plan Of Treatment Date Type Action Status Referral Ordered: X-ray exam knee, 1 or 2 views LT ordered Referral Ordered: X-ray exam both knees, standing ordered History Of Present Illness Encounter Date Complaint History Of Prese nt Illness left knee pain Ms Kebede is a 8 4 year old female who complains of left knee pain. She presents with pain, decreased rom, weakness, stiffness and swelling on the left side. She states that the symptoms have been acute traumatic and began on 07/26/2015. She indicates the injury occurred at home. Ling states that the symptoms began as the result of twisting. The symptoms occur occasionally. The problem is unchanged. Currently the patient states that the symptoms are mild-moderate. The pain is described as aching, sharp and throbbing. The symptoms occur intermittently. The patient is experiencing pain in the following location: lower leg on the left side. She also reports additional pain in the entire knee region on the left side. She started having lateral knee pain and radiated down to the lateral side of the lower leg. That has subsided. She developed a koenig's cyst, but it ruptured. She rates her worst pain as 7/10. She rates her current pain as 4/10. The symptoms are aggravated by ascending stairs, descending stairs, walking and bending and sitting for long periods of time. Ling states that the symptoms are relieved by ice, rest, stretching, physical therapy and OTC medicines. In addition to left knee pain the patient is also experiencing decreased mobility, difficulty going to sleep, limping, night pain, weakness, stiffness, tenderness and swelling. The patient has had a previous x-ray. She had xrays taken at [facility], but she only received the report and not the xrays. Prior NSAIDs include ibuprofen. Patient has had previous therapy. Patient has had no prior surgeries. There were no previous episodes. She experienced no previous injury. Functional Status Date Functional Assessmen t No Information Instructions Date Instruction Additional Infor mation No Information Assessments Type Assessment Date assessment Pain in left knee impression assessment Chondromalacia patellae, left kn ee impression Improved today. Cons ider future cortisone if pain worsens. Cont hep and strengthening per PT. Follow up prn. Patient Care Teams Name Effective Dates (start - stop) Status Members No Information
--- OUTSIDE RECORDS SUMMARY | 2024-06-08 18:47 | XMS_ITS | Continuity of Care Document ---
Author Organization [facility] Address [address] [place] [address] Phone Care Team Providers Care Game Farm Supervisor Name Role Phone Sakshi Lazar MD Unavailable [...] [facility] , [address], [place], [address], tel:[phone] [facility] No Information 4 Nagi Hamsa. [email or web address], [place], [place], [id number]. tel:[phone] [facility] , [address] [facility] [address] [facility] [address], [place], [address], [place] tel:[phone] [facility] No Information 4 Nagi Hamsa. [email or web address], [place], [place], [id number]. tel:[phone] [facility] , [address] [facility] [facility] [address], [place], [address], [place] tel:[phone] [facility] No Information 4 Nagi Hamsa. [email or web address], [place], [place], [id number]. tel:[phone] OFFICE/OUTPA TIENT VISIT EST [facility] , [address] [facility] [facility] [address] [facility] [address], [place], [address], [place] tel:[phone] [facility] Follow up (chief complaint) Moderate persistent asthma, uncomplicatedA llergic reaction to inhaled pollenOther allergic rhinitis 4 Nagi Hamsa. [address], [place], [place], [id number]. tel:[phone] [facility] , [address], [place], [address], [place] tel:[phone] [facility] No Information 4 Nagi Hamsa. [address], [place], [place], [id number]. tel:[phone] OFFICE/OUTPA TIENT VISIT EST [facility] , [address], [place], [address], [place] tel:[phone] [facility] Follow up (chief complaint) Mild intermittent asthma without complicationAl lergic reaction to inhaled pollen 4 Nagi Hamsa. [address], [place], [place], [address]. tel:[phone] OFFICE/OUTPA TIENT VISIT EST [facility] , [address], [place], [address], [place] tel:[phone] [facility] f/u (chief complaint) Other allergic rhinitisMild intermittent asthma without complicationVa ccine counseling 3 Nagi Hamsa. [address], [place], [place], [id number]. tel:[phone] OFFICE/OUTPA TIENT VISIT EST [facility] , [address], [place], [address], [place] tel:[phone] [facility] Follow up (chief complaint) Body mass index [BMI] 25.0-25.9, adultMild intermittent asthma without complicationVo sunni cord dysfunctionOth er allergic rhinitisAllerg ic reaction to inhaled pollen 3 Nagi Hamsa. [address], [place], [place], [id number]. tel:[phone] [facility] , [address], [place], [address], [place] tel:[phone] [facility] No Information 3 Nagi Hamsa. [address], [place], [place], [id number]. tel:[phone] OFFICE/OUTPA TIENT VISIT EST [facility] , [address] [facility] [address], [place], [address], [place] tel:[phone] [facility] f/u and refills (chief complaint) Mild intermittent asthma without complicationOt her allergic rhinitisVocal cord dysfunction Oct-0 - 2 Nagi Hamsa. [address], [place], [place], [address]. tel:[phone] OFFICE/OUTPA TIENT VISIT EST [facility] , [address] [facility] [address] , [place], [address], [place] tel:[phone] [facility] f/u (chief complaint) Mild intermittent asthma without complicationPo st-nasal drainageVocal cord dysfunction Sep-1 0- 1 Nagi Hamsa. [address], [place], [place], [address]. tel:[phone] OFFICE/OUTPA TIENT VISIT EST [facility] , [address] [facility] [address] [address] , [place], [address], [place] tel:[phone] [facility] Annual check-up (chief complaint) Mild intermittent asthma without complicationCo ughPost-nasal drainageOther allergic rhinitisVocal cord dysfunction Oct-2 - 0 Nagi Hamsa. [address], [place], [place], [address]. tel:[phone] [facility] , [address] [place], [address], [place] tel:[phone] [facility] Allergic reaction to inhaled pollenOther allergic rhinitisMild intermittent asthma without complication Mar-0 - 0 Nagi Hamsa. [address], [place], [place], [address]. tel:[phone] OFFICE/OUTPA TIENT VISIT NEW [facility] , [address] [facility] , [place], [address], [place] tel:[phone] [facility] allergy evaluation (chief complaint) Mild intermittent asthma without complicationOt her allergic rhinitisAllerg ic reaction to inhaled pollen 0 Nagi Cantor. [address], [place], [place], [address]. tel:[phone] Family History Family Member Type Diagnosis Age [...] rovider Payers Payer name Insurance type Covered alliance party ID Authoriza tion(s) Medicare E2 OT [id number] AARP E2 OT [id number] Social History Type Description Quantity Date Captured [...] cured meat since she lives in a halfway facility is limited to how much she [...] controlled very well , she is very samaritan about the flovent 44 mcg which she [...] - face and hands diagnosed - by technology director- she uses topical meds - occasionally heart [...]
--- OUTSIDE RECORDS SUMMARY | 2024-06-08 18:47 | XMS_ITS | Encounter Summary ---
Author Organization [facility] Address [address] [place] [address] Care Team Providers Care Terrazzo Journeyman Name Role Phone Pankaj Braun MD Primary Care Provider Clara Montano Unavailable Sakshi Lazar MD Unavailable [phone] Carlos Lakhani MD Unavailable Encounter Details Date Type Department Care Team (Late st Contact Info) Description 06/08/2024 Telephone [facility] Convenient Care at [address] [address] Pankaj Braun MD [address] [place] [address] [address] [place] [address] Social History Tobacco Use Types [...] Master's degree (e.g., MA, MS, Sherri, MEd, AED TRAINER, MARJORIE) 05/17/2021 Comments No Sex and Gender Information Value Date Recorded Sex Assigned at Not on file Legal Sex Female 12:40 AM HEEL CUTTER Gender Identity Female 07/17/2021 4:37 PM CDT Sexual Orientation Straight 07/17/2021 4: 37 PM CDT 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 Pt stated she usually goes to [facility] but thinks she can'twait to go that far and needs to be seen sooner and stated she wants to go to [place] because she feels its urgent. She reports her is at home with her and will drive her there. CUTTER documented in this encounter Plan of Treatment Not on file documented as of this encounter Visit Diagnoses Not on filedocumented in this encounter Care Teams Terrazzo Journeyman Relationship Specialty Start Date End Date Pankaj Braun MD [address] [place] [address] PCP - General Family Medicine 05/17/21 Clara Montano PA [address] [place] [address] Physician Hand Almond Blancher Dermatology 05/17/21 Sakshi Lazar MD [address] [facility] [address] [place] [address] Consulting Physician Allergy and Immunology 05/17/21 Carlos Lakhani MD [address] [place] [address] DR MUSTAFA [address] [place] [address] Consulting Physician Gastroenterology 06/19/22 documented as of this encounter
--- OUTSIDE RECORDS SUMMARY | 2024-06-08 18:47 | XMS_ITS | Encounter Summary ---
Author Organization [facility] Address [address] [facility] [place] [address] Care Team Providers Care Sheet Metal Shop Helper Name Role Phone Arcelia Rodriguez Primary Care Provi reese Mayra Smith RN Unavailable [facility] Pankaj Braun MD Primary Care Provider [phone] Encounter Details Date Type Department Care Team (Late st Contact Info) Description 10/22/2017 Telephone [facility] [address] [address] Arcelia Rodriguez APRN-CNP [address] OF [facility] [place] [phone] Social History Tobacco Use Types Packs/Day Years [...] be done and if so, how/where to pick and shovel man the order. Thank you. documented in this encounter Plan of Treatment Upcoming Encounters Date Type Department Care Team (Late st Contact Info) Description 09/16/2024 11:30 AM CDT Office Visit [facility] - Dermatology [address] [place] [address], [place] [address] Lane Loja MD [address] [place] [address] 3 [place] [address] documented as of this encounter Visit Diagnoses Not on filedocumented in this encounter Care Teams Sheet Metal Shop Helper Relationship Specialty Start Date End Date Arcelia Rodriguez APRN-SERVICING REP PCP - General 08/23/17 12/24/22 [place] [address] [place] [phone] PCP - General Family Medicine 12/25/22 Mayra Smith RN Care Neuro Psych Sales Specialist 11/25/19 documented as of this encounter
--- OUTSIDE RECORDS SUMMARY | 2024-06-08 18:47 | XMS_ITS | Encounter Summary ---
Author Organization [facility] Address [address] [place] [address] Care Team Providers Care Clinical Advisor Name Role Phone LiangArcelia leonard APRN-PADDER Primary Care Provi reese Mayra Smith RN Unavailable Unavailable Pankaj Braun MD Primary Care Provider [phone] Reason for Visit * Reason Onset Date Comments MEDICATION REFILL 09/14/2021 Encounter Details Date Type Department Care Team (Late Contact Info) Description 09/14/2021 Refill [facility] [address] [place] [address] Aston Coon MD [address] [facility] [address] [place] [address] MEDICATION REFILL Social History Tobacco Use Types [...] Office Visit [facility] - Dermatology [address] [place] [address], [facility] [place] [phone] Lane Loja MD [address] [place] [address] documented as of this encounter Visit Diagnoses Diagnosis Primary osteoarthritis of right hip Primary localized osteoarthrosis, pelvic region and thigh documented in this encounter Care Teams Clinical Advisor Relationship Specialty Start Date End Date Arcelia Rodriguez, NURSERY WORKER-PADDER PCP - General 08/23/17 12/24/22 Pankaj Braun MD [address] [address] PCP - General Family Medicine 12/25/22 Mayra Smith RN Care Email Operations Manager 11/25/19 documented as of this encounter
--- OUTSIDE RECORDS SUMMARY | 2024-06-08 18:47 | XMS_ITS | Encounter Summary ---
Author Organization [facility] Address [address] [facility] [place] [address] Care Team Providers Care Security Police Name Role Phone Arcelia Rodriguez APRN-COMMERCIAL SEWING INSTRUCTOR Primary Care Provi reese Mayra Smith RN Unavailable [facility] Pankaj Braun MD Primary Care Provider [phone] Reason for Visit * Reason Onset Date Comments Pain Leg 06/03/2018 1st attempt to R /O triage for leg/hip/groin pain, LVM Encounter Details Date Type Department Care Team (Late st Contact Info) Description 06/03/2018 Telephone [facility] [address] [address] Arcelia Rodriguez COMMUNICATIONS MANAGER-COMMERCIAL SEWING INSTRUCTOR [address] OF [facility] [place] [phone] Pain Leg (1st attempt to R/O triage [...] back. Call back phone number provided. AM/ZACK NS PICKER documented in this encounter Plan of Treatment Upcoming Encounters Date Type Department Care Team (Late st Contact Info) Description 09/16/2024 11:30 AM CDT Office Visit [facility] Dermatology [address] [place] [address], [place] [address] Lane Loja MD [address] [place] [address] 3 [place] [phone] documented as of this encounter Visit Diagnoses Not on filedocumented in this encounter Care Teams Security Police Relationship Specialty Start Date End Date Arcelia Rodriguez, COMMUNICATIONS MANAGER-COMMERCIAL SEWING INSTRUCTOR PCP - General 08/23/17 12/24/22 Pankaj Braun MD [address] [place] [phone] PCP - General Family Medicine 12/25/22 Mayra Smith, ham bonerLicensed Surveyor 11/25/19 documented as of this encounter
--- OUTSIDE RECORDS SUMMARY | 2024-06-08 18:47 | XMS_ITS | Referral Summary ---
Author Organization [facility] Address [address] [facility] [place] [address] Care Team Providers Care School Counsellor Name Role Phone Mayra Smith RN Unavailable Unavailable Pankaj Braun MD Primary Care Provider Source Comments [facility],non-owned Affiliates and Associated Physician Practices is amultiple site organization consisting of ambulatory clinics and hospital sitesin [place], [place], [place] and [place]. This disclosure is being madepursuant to the Care Everywhere program and may not contain all information available regarding this patient. Last updated 18.[facility] Encounters Date Type Department Care Team Description 05/15/2024 Travel 05/15/2024 10:00 AM LOGISTICS DIRECTOR Office Visit [facility] - Dermatology [address] [place] [address] [place] [phone] Clara Montano PA Neoplasm of uncertain behavior [...] Date End Date Status Cholecalciferol (VITAMIN D3) 99002 UNITS TABS Take 1 (one) tablet by [...] MG capsule 09/11/2022 Active Cholecalciferol 250 MCG (75468 UT) TABS Take 1 (one) tablet by [...] Overview (01/13/2021): Followed in Retinal Clinic in [facility] Closed head injury 11/21/2020 Subdural hematoma 11/21/2020 Pain in right hip 03/21/2020 Low back pain 01/06/2020 Muscle weakness (generalized) 01/06/2020 Pain management contract signed--11/201911/23/19 20 Spinal stenosis of lumbar region 10/07/2019 Seborrheic keratoses, inflamed 06/03/2018 Assessment & Plan (05/30/2020 2:41 PM LOGISTICS DIRECTOR): Destruction of large SK left cheek and [...] scalp Assessment & Plan (05/30/2020 2:40 PM LOGISTICS DIRECTOR): Scalp Recent flare post back surgery has calmed down Fluocinolone oil prn Betamethasone lotion dovonex solution History of skin cancer in adulthood 10/16/2017 Assessment & Plan (11/29/2020 3:03 PM CDT): No evidence of reoccurrence on exam today Self exams Photoprotection including SPF 30+ daily Assessment & Plan (05/30/2020 2:39 PM LOGISTICS DIRECTOR): NER Skin exams Photoprotection 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) 10/16/2017 Assessment & Plan (11/29/2020 3:04 PM CDT): No evidence of reoccurrence on exam today Self exams Photoprotection including SPF 30+ daily Assessment & Plan (05/30/2020 2:39 PM LOGISTICS DIRECTOR): NER Skin exams photoprotection Non-toxic nodular goiter [...] LURIA, FLUZONE TRIVALENT; 6MO+) (IIV3) 01/26/2016,12/23/2010,03/28/2010 [employer] primary monoval ent 12+ yr 0.3mL Purple [...] Description 09/16/2024 11:30 AM CDT Office Visit [facility] - Dermatology [address] [place] [address], [facility] [place] [address] Lane Loja MD [address] [place] [address] 3 [place] [phone] Procedures Procedure Name Priority Date/Time Associated Diagnosis Comments [place] DESTRUCT BENIGN LESION, 1-14 Routine 05/15/2024 10:35 AM LOGISTICS DIRECTOR Seborrheic keratoses [place] TANGNTL BX SKIN SINGLE LES Routine 05/15/2024 10:35 AM LOGISTICS DIRECTOR Neoplasm of uncertain behavior of skin DERMATOPATHOLOGY Routine 05/15/2024 12:0 0 AM LOGISTICS DIRECTOR Neoplasm of uncertain behavior of skin DEXA BONE DENSITY AXIAL SKELETON Routine 01/03/2018 8:29 AM CDT Post-menopause Healthcare maintenance from Last 3 Months or Most Recently Relevant to Health Maintenance Results * [place] DESTRUCT BENIGN LESION, 1-14 (05/15/2024 10:35 AM LOGISTICS DIRECTOR) Narrative Clara Montano PA - 05/15/2024 10:35 AM LOGISTICS DIRECTOR Clara Montano PA 05/15/2024 5:22 PM Derm [...] Clara WRIGHT PROCEDURE/MINOR SURG ICAL ORDERABLES * [place] TANGNTL BX SKIN SINGLE LES (05/15/2024 10:35 AM LOGISTICS DIRECTOR) Narrative Clara Montano PA - 05/15/2024 10:35 AM LOGISTICS DIRECTOR Clara Montano PA 05/15/2024 5:22 PM Derm [...] (Specimen Count = 1) (05/15/2024 12:00 AM LOGISTICS DIRECTOR) Case Report Dermatopathology Report Case: [id number] Authorizing Provider: Clara Montano PA Collected: 05/15/2024 12:00 AM Ordering Location: [facility] - Received: 05/18/2024 06:07 AM Dermatology Pathologist: Mallorie Davis MD Specimen: Skin, left brow 6:13 PM [facility] Final Diagnosis Specimen A. SKIN, left brow: CHRONIC PERIFOLLICULITIS (L73.8) (see microscopic description) 6:13 PM [facility] Clinical History NMSC 6:13 PM [facility] Gross Description Specimen A: Received is one formalin filled container labeled with the patient's name and designated left brow. The specimen consists of a shave biopsy measuring 6x5x1 mm. Jar 0. 6:13 PM [facility] Microscopic Description Specimen A. SKIN, left brow: Sections show a perifollicular lymphohistiocytic infiltrate. Additional deeper sections were obtained and reviewed. 6:13 PM [facility] Disclaimer An external and internal positive and negative controls are appropriate for the histochemical, immunohistochemical and immunofluorescence stain(s) in this case (if any), except where stated explicitly. The performance characteristics of the stain(s) cited in this report were developed and its performance characteristic determined by the Dermatopathology Laboratory at [facility], directed by Dr. Yoli Davis. These tests need not be, and therefore are not, approved by the [place] Food and Drug Administration. The tests are used for clinical purposes. Billing Codes Specimen Charges Stain Charges 63763 1 6:13 PM [facility] Embedded Images 6:13 PM [facility] Pathology/Cytolog y TISSUE SPECIMEN FROM SKIN / Unknown 05/15/2024 05/18/2024 6:07 AM LOGISTICS DIRECTOR Clara WRIGHT LAB - PATHOLOGY/CYTO LOGY ORDERABLES DERMATOPATHOLOGY LABORATORY [facility] Department of Dermatology [address], [address] [phone] * BONE DENSITY AXIAL SKELETON(1OR MORE SITES)[id number] (01/03/2018 8:29 AM CDT) Anatomical Region Laterality Modality Mammography 01/03/2018 2:20 PM CDT Narrative 01/03/2018 4:35 PM CDT Examination: Dual energy x-ray absorptiometry of the lumbar spine and hip. Clinical Indication: 77-year-old postmenopausal female Findings: Detailed data from the exam is sent separately to the ordering physician and is also available on [employer]acl[employer], the Radiology Department's computerized picture archive system. [...] ordering physician and is also available on [employer], the Radiology Department's computerized picture archive system. [...] D.O. on01/03/2018 4:35 PM . Arcelia Rodriguez KEY ACCOUNT EXECUTIVE-CART ATTENDANT DEXA ORDERA BLES from Last 3 Months or Most Recently Relevant to Health Maintenance Administered Medications Care Teams School Counsellor Relationship Specialty Start Date End Date Pankaj Braun MD [address] [facility] [address] [place] [address] PCP - General Family Medicine 12/25/22 Mayra Smith, automatic developerPulverizer Operator 11/25/19
--- OUTSIDE RECORDS SUMMARY | 2024-06-08 18:47 | XMS_ITS | Referral Summary ---
Author Organization [facility] [address] [place] Address [address] [place] [address] Care Team Providers Care Gear Tooth Grinding Machine Operator Name Role Phone Paknaj Braun MD Primary Care Provider [phone] Clara Montano Unavailable Sakshi Lazar MD Unavailable [phone] Carlos Lakhani MD Unavailable Encounters Date Type Department Care Team Description 06/08/2024 Telephone [facility] Care at [address] [address] Pankaj Braun MD 05/12/2024 12:48 PM UROGYNECOLOGY PHYSICIAN - 05/12/2024 11:59 PM UROGYNECOLOGY PHYSICIAN Hospital Encounter [facility] 1 [place] [address] Chronic abdominal pain; Liver cyst Discharge Disposition: Discharge to home or self care 05/11/2024 Telephone [facility] Gastroenterology at [address] [place] [phone] Stacy Cabrera MA 05/01/2024 Telephone [facility] Gastroenterology at [address] [place] [phone] Cherelle Forbes LPN 04/28/2024 1:00 PM UROGYNECOLOGY PHYSICIAN Office Visit [facility] Gastroenterology at [address] [place] [phone] Carlos Lakhani MD Lymphocytic colitis (Primary Dx); Chronic abdominal pain; Liver cyst 03/10/2024 10:30 AM UROGYNECOLOGY PHYSICIAN - 03/10/2024 11:59 PM UROGYNECOLOGY PHYSICIAN Hospital Encounter [facility] Nutrition and Diabetic Education 1 [facility] Room [address] [place] [address] Bowden, Tanika Jarrell, RD Macrocytosis; Weight loss Discharge Disposition: Discharge to home or self care from Last 3 Months Allergies No known active allergies Medications cholecalciferol (VITAMIN D-3) 05187 unit tablet Take 1 tablet (10,000 Units [...] 06/19/2022 Assessment & Plan (03/15/2023 6:52 AM UROGYNECOLOGY PHYSICIAN): Diagnosed on colonoscopy from 05/2022. Diarrhea resolved [...] and would like to be referred to [facility], referral placed Patient also concerned about not getting enough nutrition with her diet and is worried about not gaining enough weight, in addition to nutrition referral will also check B12 and folate given chronic macrocytosis Assessment & Plan (03/15/2023 6:57 AM UROGYNECOLOGY PHYSICIAN): 2/2 lymphocytic colitis diagnosed on colonoscopy from [...] probiotics Assessment & Plan (05/28/2022 3:53 PM UROGYNECOLOGY PHYSICIAN): New issues started about 2 weeks ago [...] 05/28/2022 Assessment & Plan (03/15/2023 6:55 AM UROGYNECOLOGY PHYSICIAN): Two tubular adenomas on colonoscopies 2016. Repeat colonoscopy 05/2022 with one 2mm tubular adenoma. Mother with colon cancer in her late 70s. Given age will defer further colon cancer surveillance. Assessment & Plan (05/28/2022 3:52 PM UROGYNECOLOGY PHYSICIAN): Two tubular adenomas on colonoscopies 2016. Mother with colon cancer in her late 70s. Patient due for surveillance we will order colonoscopy Liver cyst 05/28/2022 Assessment & Plan (05/28/2022 3:56 PM UROGYNECOLOGY PHYSICIAN): Multiple liver cysts Noted incidentally on CT from 04/2022. We will discuss with patient regarding multiphase MRI next visit Encounter for Medicare annual wellness exam 11/2021 Assessment & Plan (05/08/2023 9:57 AM UROGYNECOLOGY PHYSICIAN): A(n) yearly Medicare Annual Wellness Visit has [...] 07/26/2021 Assessment & Plan (06/22/2022 3:07 PM UROGYNECOLOGY PHYSICIAN): Continue diet as tolerated; protein intake should be emphasized Ensure as meal supplement is okay, 1/2-1 can between meals 1-2ce a day May begin regular exercise with light weight as before Continuing atorvastatin Assessment & Plan (05/04/2022 10:40 AM UROGYNECOLOGY PHYSICIAN): LDL is 84 mg/dL Under control, will [...] 05/20/2021 Assessment & Plan (05/20/2021 1:52 PM UROGYNECOLOGY PHYSICIAN): A initial well visit to establish care [...] 01/13/2018 Assessment & Plan (05/04/2022 10:40 AM UROGYNECOLOGY PHYSICIAN): Symptoms are low level No prescription therapy [...] Immunization Administration Dates Next Due COVID-19 mRNA ([employer]) 0.3 m L (30 mcg) vaccine (12 [...] Master's degree (e.g., MA, MS, Sherri, MEd, DIRECTOR TEEN POST, MARJORIE) 05/17/2021 Comments No Sex and Gender Information Value Date Recorded Sex Assigned at Not on file Legal Sex Female 12:40 AM UROGYNECOLOGY PHYSICIAN Gender Identity Female 07/17/2021 4:37 PM CDT Sexual Orientation Straight 07/17/2021 4: 37 PM CDT 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 Not on file Last Filed Vital Signs Vital Sign Reading Time Taken Comments Blood Pressure 103/59 04/28/2024 1:14 PM UROGYNECOLOGY PHYSICIAN Pulse 82 04/28/2024 1:14 PM UROGYNECOLOGY PHYSICIAN Temperature 36 C (96.8 F) 10/29/2023 10:39 AM CDT Respiratory Rate 18 10/29/2023 10:39 AM CDT Oxygen Saturation 96% 04/28/2024 1:14 PM UROGYNECOLOGY PHYSICIAN Inhaled Oxygen Concentration - - Weight 52.2 kg (115 lb) 05/06/2024 1:49 PM UROGYNECOLOGY PHYSICIAN Height 149.9 cm (4' 11 ) 04/28/2024 1:14 PM UROGYNECOLOGY PHYSICIAN Body Mass Index 23.23 04/28/2024 1:14 PM UROGYNECOLOGY PHYSICIAN Plan of Treatment Not on file Procedures Procedure Name Priority Date/Time Associated Diagnosis Comments MRI ABDOMEN LIVER W WO CONTRAST Schedule Routine, Read Routine (OP Routine) 05/12/2024 2:13 PM UROGYNECOLOGY PHYSICIAN Chronic abdominal pain Liver cyst DEXA AXIAL SKELETON BONE DENSITY 1 OR MORE SITES Schedule Routine, Read Routine (OP Routine) 05/16/2023 9:59 AM UROGYNECOLOGY PHYSICIAN Screening for osteoporosis halfway current use of inhaled steroid from Last 3 Months or Most Recently Relevant to Health Maintenance Results * MRI Abdomen Liver W WO Contrast (05/12/2024 2:13 PM UROGYNECOLOGY PHYSICIAN) Anatomical Region Laterality Modality Body N/A Magnetic Resonan ce 05/12/2024 2:23 PM UROGYNECOLOGY PHYSICIAN Narrative 05/12/2024 2:38 PM UROGYNECOLOGY PHYSICIAN EXAM DESCRIPTION: MRI ABDOMEN LIVER W WO [...] Amy Jones D.O. PS: PS Report ID: [id number] Reading Location: [id number] Procedure Note Amy Jones DO - 05/12/2024 [...] Amy Jones D.O. PS: PS Report ID: [id number] Reading Location: [id number] Carlos Lakhani MD [facility] MRI PROCEDURES Final Result * Dexa Axial Skeleton Bone Density 1 or 2 Site (05/16/2023 9:59 AM UROGYNECOLOGY PHYSICIAN) Anatomical Region Laterality Modality Body N/A Other 05/16/2023 5:48 PM UROGYNECOLOGY PHYSICIAN Narrative 05/16/2023 5:49 PM UROGYNECOLOGY PHYSICIAN EXAM DESCRIPTION: DEXA AXIAL SKELETON BONE DENSITY 1 OR MORE SITES REASON FOR STUDY: 82 y/o year old F with given history of: screen osteoporosis, Osteoporosis screening Screening. Direct Marketing Executive/Model: Human Dem[employer] SL (S/N [id number]) CLINICAL INFORMATION: Current height: 59 inches Maximum [...] Westley Lopez M.D. MF: ASHLEY Report ID: [id number] Reading Location: [place] [address] Procedure Note Westley Lopez MD - 05/16/2023 EXAM DESCRIPTION: DEXA AXIAL SKELETON BONE DENSITY 1 OR MORE SITES REASON FOR STUDY: 82 y/o year old F with given history of: screen osteoporosis, Osteoporosis screening Screening. Direct Marketing Executive/Model: Human [employer] SL (S/N [id number]) CLINICAL INFORMATION: Current height: 59 inches Maximum [...] Westley Lopez M.D. MF: ASHLEY Report ID: [id number] Reading Location: [place] [address] Pankaj Braun MD IMG DXA PROCEDURES Final Re sult from Last 3 Months or Most Recently Relevant to Health Maintenance Insurance MEDICARE [facility] MEDICARE [facility] MEDICARE [facility] Advance Directives For more information, please contact: [phone] * Full Code (Latest Code Status on File) Date Activated Date Inactivated Comments 06/13/2022 11:17 AM 06/13/2022 4:51 PM * Full Code Date Activated Date Inactivated Comments 06/13/2022 11:17 AM 06/13/2022 11:17 AM Care Teams Gear Tooth Grinding Machine Operator Relationship Specialty Start Date End Date Pankaj Braun MD [address] [place] [address] PCP - General Family Medicine 05/17/21 Clara Montano PA [address] [place] [address] Physician Claims Supervisor Dermatology 05/17/21 Sakshi Lazar MD [address] [facility] [address] [place] [address] Consulting Physician Allergy and Immunology 05/17/21 Carlos Lakhani MD [address] [place] [address] DR MUSTAFA [address] [place] [address] Consulting Physician Gastroenterology 06/19/22
--- OUTSIDE RECORDS SUMMARY | 2024-06-08 18:47 | XMS_ITS | Continuity of Care Document ---
Author Organization [facility] Address [address] [place] [address] Phone Care Team Providers Care Director Of Creative Services Name Role Phone Tona Tate Unavailable Unavailable Allergies, Adverse Reactions, Alerts Substance Reaction Status Criticality No Known Allergies Active No Inform ation Procedures Procedure Date X-ray exam both knees, standing 016 X-ray exam knee, 1 or 2 views 6 [facility] Advance Directives Directive Yes / No Effective Date File Name No Information Encounters Encounter Description Practice Location Reason(s) For Visit Diagnoses Date Provider Providers Copied on Encounter [facility], [address], [place], [place], [id number], [place] tel:[phone] [facility] left knee pain (chief complaint) Pain in left kneeChondromalaci a patellae, left knee 6 Arabella Carbone. [address], [place], [place], [id number] , [place]. tel:[phone] Referring Provider: Tona Gama, [facility], [place], [address] . tel:[phone] Family History Family Member Type Diagnosis Age At Onset Father Problem (finding) Cancer, unknown Mother Problem (finding) cancer of colon Immunizations Vaccine Date Status Comments pneumococcal polysaccharide vaccine, 23 valent administered Source: Other Provid er Flu (split) (3 yrs or older) administered Source: Other Provider Payers Payer name Insurance type Covered alliance party ID Afshin carter(s) Medicare [place] WPS Part B [id number] [facility] CI [id number] Social History Type Description Quantity Date Captured [...] previous x-ray. She had xrays taken at [facility], but she only received the report and [...] previous x-ray. She had xrays taken at [facility], but she only received the report and [...]
--- OUTSIDE RECORDS SUMMARY | 2024-06-08 18:47 | XMS_ITS | Clinical Summary ---
Author Organization [facility] [address] Address [address] [place] [address] Care Team Providers Care Preparer Samples And Repairs Name Role Phone Pankaj Braun MD Primary Care Provider [phone] Clara Montano Unavailable [phone] Sakshi Lazar MD Unavailable [phone] Carlos Lakhani MD Unavailable Allergies No known active allergies Medications cholecalciferol (VITAMIN D-3) 11163 unit tablet Take 1 tablet (10,000 Units [...] 06/19/2022 Assessment & Plan (03/15/2023 6:52 AM ORE GRADER): Diagnosed on colonoscopy from 05/2022. Diarrhea resolved [...] and would like to be referred to anhydrous ammonia production supervisor, referral placed Patient also concerned about not getting enough nutrition with her diet and is worried about not gaining enough weight, in addition to nutrition referral will also check B12 and folate given chronic macrocytosis Assessment & Plan (03/15/2023 6:57 AM ORE GRADER): 2/2 lymphocytic colitis diagnosed on colonoscopy from [...] probiotics Assessment & Plan (05/28/2022 3:53 PM ORE GRADER): New issues started about 2 weeks ago [...] 05/28/2022 Assessment & Plan (03/15/2023 6:55 AM ORE GRADER): Two tubular adenomas on colonoscopies 2015. Repeat colonoscopy 05/2022 with one 2mm tubular adenoma. Mother with colon cancer in her late 70s. Given age will defer further colon cancer surveillance. Assessment & Plan (05/28/2022 3:52 PM ORE GRADER): Two tubular adenomas on colonoscopies 2015. Mother with colon cancer in her late 70s. Patient due for surveillance we will order colonoscopy Liver cyst 05/28/2022 Assessment & Plan (05/28/2022 3:56 PM ORE GRADER): Multiple liver cysts Noted incidentally on CT from 04/2022. We will discuss with patient regarding multiphase MRI next visit Encounter for Medicare annual wellness exam 11/2021 Assessment & Plan (05/08/2023 9:57 AM ORE GRADER): A(n) yearly Medicare Annual Wellness Visit has [...] 07/26/2021 Assessment & Plan (06/22/2022 3:07 PM ORE GRADER): Continue diet as tolerated; protein intake should be emphasized Ensure as meal supplement is okay, 1/2-1 can between meals 1-2ce a day May begin regular exercise with light weight as before Continuing atorvastatin Assessment & Plan (05/04/2022 10:40 AM ORE GRADER): LDL is 84 mg/dL Under control, will [...] 05/20/2021 Assessment & Plan (05/20/2021 1:52 PM ORE GRADER): A initial well visit to establish care [...] 01/13/2018 Assessment & Plan (05/04/2022 10:40 AM ORE GRADER): Symptoms are low level No prescription therapy [...] Type Department Care Team Description 06/08/2024 Telephone [facility] at [address] [address] Pankaj Braun MD 05/12/2024 12:48 PM ORE GRADER - 05/12/2024 11:59 PM ORE GRADER Hospital Encounter [facility] [address] [place] [address] Chronic abdominal pain; Liver cyst Discharge Disposition: Discharge to home or self care 05/11/2024 Telephone [facility] G[facility] at [address] [place] [address] Stacy Cabrera MA 05/01/2024 Telephone [facility] at [address] [place] [address] Cherelle Forbes LPN 04/28/2024 1:00 PM ORE GRADER Office Visit [facility] at [address] [place] [address] Carlos Lakhani MD Lymphocytic colitis (Primary Dx); Chronic abdominal pain; Liver cyst 03/10/2024 10:30 AM ORE GRADER - 03/10/2024 11:59 PM ORE GRADER Hospital Encounter [facility] Nutrition and Diabetic Education [address] [facility] [address] [place] [address] Bowden, Tanika Jarrell RD Macrocytosis; Weight loss Discharge Disposition: Discharge to home or self care from Last 3 Months Immunizations Immunization Administration Dates Next Due COVID-19 mRNA (Visedo) 0.3 m L (30 mcg) vaccine (12 [...] Master's degree (e.g., MA, MS, Sherri, MEd, DUST SAMPLER, MARJORIE) 05/17/2021 Comments No Sex and Gender Information Value Date Recorded Sex Assigned at Not on file Legal Sex Female 12:40 AM ORE GRADER Gender Identity Female 07/17/2021 4:37 PM CDT Sexual Orientation Straight 07/17/2021 4: 37 PM CDT 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 Not on file Obstetrics History Last Filed Vital Signs Vital Sign Reading Time Taken Comments Blood Pressure 103/59 04/28/2024 1:14 PM ORE GRADER Pulse 82 04/28/2024 1:14 PM ORE GRADER Temperature 36 C (96.8 F) 10/29/2023 10:39 AM CDT Respiratory Rate 18 10/29/2023 10:39 AM CDT Oxygen Saturation 96% 04/28/2024 1:14 PM ORE GRADER Inhaled Oxygen Concentration - - Weight 52.2 kg (115 lb) 05/06/2024 1:49 PM ORE GRADER Height 149.9 cm (4' 11 ) 04/28/2024 1:14 PM ORE GRADER Body Mass Index 23.23 04/28/2024 1:14 PM ORE GRADER Plan of Treatment Health Maintenance Due Date [...] Read Routine (OP Routine) 05/12/2024 2:13 PM ORE GRADER Chronic abdominal pain Liver cyst DEXA AXIAL SKELETON BONE DENSITY 1 OR MORE SITES Schedule Routine, Read Routine (OP Routine) 05/16/2023 9:59 AM ORE GRADER Screening for osteoporosis second baker current use of inhaled steroid from Last 3 Months or Most Recently Relevant to Health Maintenance Results * MRI Abdomen Liver W WO Contrast (05/12/2024 2:13 PM ORE GRADER) Anatomical Region Laterality Modality Body N/A Magnetic Resonan ce 05/12/2024 2:23 PM ORE GRADER Narrative 05/12/2024 2:38 PM ORE GRADER EXAM DESCRIPTION: MRI ABDOMEN LIVER W WO [...] Amy Jones D.O. PS: PS Report ID: [id number] Reading Location: [place] [address] Procedure Note Amy Jones, DO - 05/12/2024 [...] Amy Jones D.O. PS: PS Report ID: [id number] Reading Location: [place] [address] Carlos Lakhani MD [facility] MRI PROCEDURES Final Result * Dexa Axial Skeleton Bone Density 1 or 2 Site (05/16/2023 9:59 AM ORE GRADER) Anatomical Region Laterality Modality Body N/A Other 05/16/2023 5:48 PM ORE GRADER Narrative 05/16/2023 5:49 PM ORE GRADER EXAM DESCRIPTION: DEXA AXIAL SKELETON BONE DENSITY 1 OR MORE SITES REASON FOR STUDY: 82 y/o year old F with given history of: screen osteoporosis, Osteoporosis screening Screening. Shale Planer Operator Helper/Model: Agolo SL (S/N [id number]) CLINICAL INFORMATION: Current height: 59 inches Maximum [...] Westley Lopez M.D. MF: ASHLEY Report ID: [id number] Reading Location: [address] Note Westley Lopez MD - 05/16/2023 EXAM DESCRIPTION: DEXA AXIAL SKELETON BONE DENSITY 1 OR MORE SITES REASON FOR STUDY: 82 y/o year old F with given history of: screen osteoporosis, Osteoporosis screening Screening. Shale Planer Operator Helper/Model: Agolo SL (S/N [id number]) CLINICAL INFORMATION: Current height: 59 inches Maximum [...] Westley Lopez M.D. MF: ASHLEY Report ID: [id number] Reading Location: [place] [address] Pankaj Braun MD IMG DXA PROCEDURES Final Re sult from Last 3 Months or Most Recently Relevant to Health Maintenance Insurance MEDICARE [facility] MEDICARE [facility] MEDICARE [facility] Advance Directives For more information, please contact: [phone] * Full Code (Latest Code Status on File) Date Activated Date Inactivated Comments 06/13/2022 11:17 AM 06/13/2022 4:51 PM * Full Code Date Activated Date Inactivated Comments 06/13/2022 11:17 AM 06/13/2022 11:17 AM Care Teams Preparer Samples And Repairs Relationship Specialty Start Date End Date Pankaj Braun MD [address] [place] [address] PCP - General Family Medicine 05/17/21 Clara Montano PA [address] [place] [address] Physician Structures Engineer Dermatology 05/17/21 Sakshi Lazar MD [address] [facility] [address] [place] [address] Consulting Physician Allergy and Immunology 05/17/21 Carlos Lakhani MD [address] [place] [address] DR MUSTAFA [address] [place] [address] Consulting Physician Gastroenterology 06/19/22
--- OUTSIDE RECORDS SUMMARY | 2024-06-08 18:47 | XMS_ITS | Encounter Summary ---
Author Organization [facility] Address [address] [place] [address] Care Team Providers Care Seed Sorter Name Role Phone Arcelia Rodriguez APRN-[employer] Primary Care Provi reese Mayra Smith RN Unavailable Unavailable Paknaj Braun MD Primary Care Provider Reason for Visit * Reason Onset Date Comments MEDICATION REFILL 12/20/2019 Encounter Details Date Type Department Care Team (Late Contact Info) Description 12/20/2019 Refill [facility] [address] [place] [address] [place] [address] [place] [address] [place] [phone] MEDICATION REFILL Social History Tobacco Use Types [...] Office Visit [facility] Dermatology [address] [place] [address], [place] [phone] Lane Loja MD [address] [place] [address] documented as of this encounter Visit Diagnoses Diagnosis Other psoriasis documented in this encounter Care Teams Seed Sorter Relationship Specialty Start Date End Date Arcelia Rodriguez APRN-[employer] PCP - General 08/23/17 12/24/22 Pnakaj Braun MD [address] [id number] PCP - General Family Medicine 12/25/22 Mayra Smith, pouncer machineArea Development Consultant 11/25/19 documented as of this encounter
--- OUTSIDE RECORDS SUMMARY | 2024-06-08 18:48 | XMS_ITS | Patient Health Summary ---
Author Organization [facility] Desi Hits Address [address] [place] [address] Care Team Providers Care Precision Honing Machine Operator Name Role Phone Mayra Smith RN Unavailable Unavailable Pankaj Braun MD Primary Care Provider [phone] Note from [facility],non-owned Affiliates and Associated Physician Practices is amultiple site organization consisting of ambulatory clinics and hospital sitesin [place], [place], [place] and [place]. This disclosure is being madepursuant to the Care Everywhere program and may not contain all information available regarding this patient. Last updated 18.[facility] Allergies * Contrast-Iodinated Agents For Ct/Other(Shortness of Breath) -High Criticality Medications * Be aware that medications may not be up to date on this document. Alwaysverify current medications with the patient. * Cholecalciferol (VITAMIN D3) 77664 UNITS TABS Take 1 (one) tablet by [...] MG capsule(Started 09/11/2022) * Cholecalciferol 250 MCG (99302 UT) TABS Take 1 (one) tablet by [...] 25.85 08/01/2021 8:42 AM CDT Procedures * NE DESTRUCT BENIGN LESION, 1-14(Performed 05/15/2024) Performed for Seborrheic keratoses * NE TANGNTL BX SKIN SINGLE LES(Performed 05/15/2024) Performed for Neoplasm of uncertain behavior of skin * DERMATOPATHOLOGY(Performed 05/15/2024) Performed for Neoplasm of uncertain behavior of skin * NE TANGNTL BX SKIN SINGLE LES(Performed 03/19/2023) Performed for Neoplasm of uncertain behavior of skin * NE DESTRUCT BENIGN LESION, 1-14(Performed 03/19/2023) Performed for Seborrheic keratoses, inflamed * DERMATOPATHOLOGY(Performed 03/18/2023) Performed for Neoplasm of uncertain behavior of skin * NE CHMSRG MOHS MG TQ T/A/L 1ST STAG 5 BLOCKS(Performed 12/25/2022) 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, left * NE INTMD WND REPAIR TRUNK,ARM,LEG 2.6-7.5(Performed 12/25/2022) 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, left * NE DESTRUCT BENIGN LESION, 1-14(Performed 11/15/2022) Performed for Inflamed seborrheic keratosis * NE TANGNTL BX SKIN SINGLE LES(Performed 11/15/2022) Performed for Neoplasm of uncertain behavior of skin * DERMATOPATHOLOGY(Performed 11/09/2022) Performed for Neoplasm of uncertain behavior of skin * NE DESTRUCT BENIGN LESION, 1-14(Performed 05/11/2022) Performed for Seborrheic keratoses, inflamed * NE DESTROY PREMALIG LESION, 2-14(Performed 05/11/2022) Performed for AK (actinic keratosis) * NE DESTROY PREMALIG LESION, 1ST LESION(Performed 05/11/2022) Performed for AK (actinic keratosis) * NE TANGNTL BX SKIN EA SEP ADDL(Performed 05/11/2022) Performed for Neoplasm of uncertain behavior of skin * NE TANGNTL BX SKIN SINGLE LES(Performed 05/11/2022) Performed for Neoplasm of uncertain behavior of skin * DERMATOPATHOLOGY(Performed 05/11/2022) Performed for Neoplasm of uncertain behavior of skin * NE TANGNTL BX SKIN EA SEP ADDL(Performed 10/30/2021) Performed for Neoplasm of uncertain behavior of skin * NE TANGNTL BX SKIN SINGLE LES(Performed 10/30/2021) Performed for Neoplasm of uncertain behavior of skin * DERMATOPATHOLOGY(Performed 10/30/2021) Performed for Neoplasm of uncertain behavior of skin * XR PELVIS W RIGHT HIP 2VW(Performed 09/26/2021) Performed for Pain in right hip * NE CHMSRG MOHS MG TQ H/N/H/F/G 1ST STAG 5 BLOC(Performed 08/01/2021) Performed for Basal cell carcinoma (BCC) of right church region * NE INTMD WND REPAIR FACE,FACIAL 2.5-5(Performed 08/01/2021) Performed for Basal cell carcinoma (BCC) of right church region * NE CHMSRG MOHS MG TQ H/N/H/F/G 1ST STAG 5 BLOC(Performed 07/27/2021) 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 * NE CHMSRG MOHS MG TQ H/N/H/F/G EA ADDL STAG(Performed 07/27/2021) 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 * PROC MOHS SURG HEAD/NECK/HAND/FEET/ISIDRA(Performed 07/27/2021) 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 * PROC MOHS SURG HEAD/NECK/HAND/FEET/ISIDRA(Performed 07/27/2021) 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 * NE DESTROY PREMALIG LESION, 1ST LESION(Performed 06/26/2021) Performed for AK (actinic keratosis) * NE TANGNTL BX SKIN SINGLE LES(Performed 06/26/2021) Performed for Neoplasm of uncertain behavior of skin * NE TANGNTL BX SKIN EA SEP ADDL(Performed 06/26/2021) Performed for Neoplasm of uncertain behavior of skin * DERMATOPATHOLOGY(Performed 06/20/2021) Performed for Neoplasm of uncertain behavior of skin * EYE EXAM(Performed 03/23/2021) * COMPREHENSIVE METABOLIC PANEL(Performed 01/27/2021) Performed for Hyperlipidemia, unspecified hyperlipidemia type * LIPID PROFILE(Performed 01/27/2021) Performed for Hyperlipidemia, unspecified hyperlipidemia type * NE TANGNTL BX SKIN SINGLE LES(Performed 01/04/2021) Performed for Neoplasm of uncertain behavior of skin * NE DESTR MALIG TRUNK,EXTREM 1.1-2 CM(Performed 01/04/2021) Performed for Squamous cell carcinoma in situ * DERMATOPATHOLOGY(Performed 12/30/2020) Performed for Neoplasm of uncertain behavior of skin * NE TANGNTL BX SKIN SINGLE LES(Performed 11/29/2020) Performed [...] Retinal vascular occlusion of left eye * NE DESTRUCT BENIGN LESION, 1-14(Performed 05/30/2020) Performed for Keratosis, inflamed seborrheic * NE TANGNTL BX SKIN SINGLE LES(Performed 05/30/2020) Performed [...] pain, Numbness and tingling of foot * NE CARPAL TUNNEL THERA INJ(Performed 06/26/2019) Performed for Carpal tunnel syndrome of left wrist * CARDIAC EKG ORDER(Performed 06/24/2019) * NE TANGNTL BX SKIN SINGLE LES(Performed 05/29/2019) Performed for Neoplasm of uncertain behavior of skin * NE DESTROY PREMALIG LESION, 1ST LESION(Performed 05/29/2019) Performed for Actinic keratoses * NE DESTROY PREMALIG LESION, 2-14(Performed 05/29/2019) Performed for Actinic keratoses * NE DESTRUCT BENIGN LESION, 1-14(Performed 05/29/2019) Performed for Seborrheic keratoses, inflamed * DERMATOPATHOLOGY(Performed 05/29/2019) Performed for Neoplasm of uncertain behavior of skin * STREP A SCREEN - POINT OF CARE (AMB) STL(Performed 04/01/2019) Performed for Acute streptococcal pharyngitis * NE LARYNGOSCOPY,FLEX FIBER,DIAGNOSTIC(Performed 03/03/2019) Performed for Hoarseness * NE DESTRUCT BENIGN LESION, 1-14(Performed 11/25/2018) Performed for [...] Carpal tunnel syndrome of left wrist * NE DESTRUCT BENIGN LESION, 1-14(Performed 06/03/2018) Performed for Seborrheic keratoses, inflamed * CULTURE FUNGUS OTHER+FUNGUS SMEAR(Performed 06/03/2018) Performed for Other psoriasis * CBC W AUTO DIFFERENTIAL(Performed 02/07/2018) Performed for Methotrexate, halfway, current use * COMPREHENSIVE METABOLIC PANEL(Performed 02/07/2018) Performed for Methotrexate, terminal operator, current use * CBC W AUTO DIFFERENTIAL(Performed 01/24/2018) Performed for Methotrexate, halfway, current use * COMPREHENSIVE METABOLIC PANEL(Performed 01/24/2018) Performed for Encounter for long-term current use of medication * COMPREHENSIVE METABOLIC PANEL(Performed 01/10/2018) Performed for Methotrexate, terminal operator, current use * CBC W AUTO DIFFERENTIAL(Performed 01/10/2018) Performed for Encounter for long-term current use of medication * COMPREHENSIVE METABOLIC PANEL(Performed 01/03/2018) Performed for Methotrexate, halfway, current use * CBC W AUTO DIFFERENTIAL(Performed 01/03/2018) Performed for Encounter for long-term current use of medication * DEXA BONE DENSITY AXIAL SKELETON(Performed 01/03/2018) Performed for Post-menopause, Healthcare maintenance * MAMMO BILAT SCREENING(Performed 01/03/2018) Performed for Breast cancer screening * COMPREHENSIVE METABOLIC PANEL(Performed 12/27/2017) Performed for Methotrexate, terminal operator, current use * CBC W AUTO DIFFERENTIAL(Performed 12/27/2017) Performed for Encounter for long-term current use of medication * CBC W AUTO DIFFERENTIAL(Performed 12/20/2017) Performed for Methotrexate, halfway, current use * COMPREHENSIVE METABOLIC PANEL(Performed 12/20/2017) Performed for Methotrexate, terminal operator, current use * CBC W AUTO DIFFERENTIAL(Performed [...] - POCT (AMB) SLU(Performed 04/22/1998) Results * NE DESTRUCT BENIGN LESION, 1-14 (05/15/2024 10:35 AM [facility]) Narrative Clara Montano PA - 05/15/2024 10:35 AM [facility] Clara Montano PA 05/15/2024 5:22 PM Derm [...] Clara WRIGHT PROCEDURE/MINOR SURG ICAL ORDERABLES * NE TANGNTL BX SKIN SINGLE LES (05/15/2024 10:35 AM [facility]) Narrative Clara Montano PA - 05/15/2024 10:35 AM [facility] Clara Montano PA 05/15/2024 5:22 PM Derm [...] (Specimen Count = 1) (05/15/2024 12:00 AM [facility]) Only the most recent of16 resultswithin the time period is included. Case Report Dermatopathology Report Case: [id number] Authorizing Provider: Clara Montano PA Collected: 05/15/2024 12:00 AM Ordering Location: [facility] - Received: 05/18/2024 06:07 AM Dermatology Pathologist: Mallorie Davis MD Specimen: Skin, left brow 6:13 PM [facility] DERMATOPATHOLOGY LABORATORY Final Diagnosis Specimen A. SKIN, left brow: CHRONIC PERIFOLLICULITIS (L73.8) (see microscopic description) 5 6:13 PM [facility] Clinical History NMSC 5 6:13 PM [facility] DERMATOPATHOLOGY LABORATORY Gross Description Specimen A: Received is one formalin filled container labeled with the patient's name and designated left brow. The specimen consists of a shave biopsy measuring 6x5x1 mm. Jar 0. 5 6:13 PM [facility] DERMATOPATHOLOGY LABORATORY Microscopic Description Specimen A. SKIN, left brow: Sections show a perifollicular lymphohistiocytic infiltrate. Additional deeper sections were obtained and reviewed. 5 6:13 PM [facility] DERMATOPATHOLOGY LABORATORY Disclaimer An external and internal positive and negative controls are appropriate for the histochemical, immunohistochemical and immunofluorescence stain(s) in this case (if any), except where stated explicitly. The performance characteristics of the stain(s) cited in this report were developed and its performance characteristic determined by the Dermatopathology Laboratory at [facility], directed by Dr. Yoli Davis. These tests need not be, and therefore are not, approved by the [place] Food and Drug Administration. The tests are used for clinical purposes. Billing Codes Specimen Charges Stain Charges 37184 1 5 6:13 PM [facility] DERMATOPATHOLOGY LABORATORY Embedded Images 5 6:13 PM [facility] DERMATOPATHOLOGY LABORATORY Pathology/Cytolog y TISSUE SPECIMEN FROM SKIN / Unknown 05/15/2024 05/18/2024 6:07 AM [facility] Clara WRIGHT LAB - PATHOLOGY/CYTO LOGY ORDERABLES DERMATOPATHOLOGY LABORATORY [facility] - Department of Dermatology [address], [address] [phone] * NE ROMINANTL BX SKIN SINGLE LES (03/19/2023 10:02 AM [facility]) Narrative Clara Montano PA - 03/19/2023 10:02 AM [facility] Clara Montano PA 03/19/2023 10:19 AM Derm [...] Clara WRIGHT PROCEDURE/MINOR SURG ICAL ORDERABLES * NE DESTRUCT BENIGN LESION, 1-14 (03/19/2023 9:58 AM [facility]) Narrative Clara Montano PA - 03/19/2023 9:58 AM [facility] Clara Montano PA 03/19/2023 10:19 AM Derm [...] Clara WRIGHT PROCEDURE/MINOR SURG ICAL ORDERABLES * NE INTMD WND REPAIR TRUNK,ARM,LEG 2.6-7.5, NE CHMSRG MOHS MG TQ T/A/L 1ST STAG [...] final defect: adipose Previous dermpath accession #: [id number] Repair type: intermediate Mohs accession #: [id number] [...] confirmed by the patient. All components of [place] Protocol/PAUSE Rule completed. STAGE I: The patient [...] Inflammation obscuring possible tumor presence: Not Present [facility] CLIA # [id number] Mohs director geophysical laboratory: Mayra Herrera MD REPAIR: Intermediate Primary Surgeon: Mayra Herrera MD Cotton Cleaner: Gabriel Suh MD; Grace Membreno MD Repair [...] portions of the reconstruction. Mayra Herrera MD Rescue Worker 12/25/2022 Mayra Herrera MD PROCEDURE/MINOR SURG ICAL ORDERABLES * NE DESTRUCT BENIGN LESION, 1-14 (11/15/2022 1:59 PM [...] Body area: head/neck Head/neck location: forehead (left church ) Lesions in this body area: 1 Total number of lesions: 1 Destruction method: cryotherapy Cryotherapy cycles: 1 Cryotherapy time per cycle (seconds): 8-12 Complications: none Wound care discussed with patient? yes Clara WRIGHT PROCEDURE/MINOR SURG ICAL ORDERABLES * NE TANGNTL BX SKIN SINGLE LES (11/15/2022 1:58 [...] Clara WRIGHT PROCEDURE/MINOR SURG ICAL ORDERABLES * NE DESTRUCT BENIGN LESION, 1-14 (05/11/2022 10:46 AM [facility]) Narrative Clara Montano PA - 05/11/2022 10:46 AM [facility] Clara Montano PA 05/11/2022 11:22 AM Derm [...] Clara WRIGHT PROCEDURE/MINOR SURG ICAL ORDERABLES * NE DESTROY PREMALIG LESION, 1ST LESION, NE DESTROY PREMALIG LESION, 2-14 (05/11/2022 10:45 AM [facility]) Narrative Clara Montano PA - 05/11/2022 10:45 AM [facility] Clara Montano PA 05/11/2022 11:22 AM Derm [...] Clara WRIGHT PROCEDURE/MINOR SURG ICAL ORDERABLES * NE TANGNTL BX SKIN SINGLE LES, NE TANGNTL BX SKIN EA SEP ADDL (05/11/2022 10:44 AM [facility]) Narrative Clara Montano PA - 05/11/2022 10:44 AM [facility] Clara Montano PA 05/11/2022 11:22 AM Derm [...] 1% with epi Location information 1. Left church 1. Left calf Number of standard lesions: 2 Total number of lesions: 2 Instrument(s) used: flexible razor blade Hemostasis achieved with aluminum chloride Wound dressing: bandage and petrolatum EBL: no blood loss Complications: none Wound care discussed with patient? yes Specimen(s) sent to pathology Patient preferred contact method(s): phone and MyChart Clara WRIGHT PROCEDURE/MINOR SURG ICAL ORDERABLES * NE TANGNTL BX SKIN SINGLE LES, NE TANGNTL BX SKIN EA SEP ADDL (10/30/2021 [...] Aston Coon MD DIAGNOSTIC IMAGING ORDERABLES * NE INTMD WND REPAIR FACE,FACIAL 2.5-5, NE CHMSRG MOHS MG TQ H/N/H/F/G 1ST STAG 5 BLOC (08/01/2021 1:07 PM CDT) Narrative Kevon Munoz MD - 08/01/2021 1:07 PM CDT Kevon Munoz MD 08/03/2021 2:33 PM Mohs Micrographic Surgery Operative Note Procedure: Mohs micrographic surgery Date of service: 08/01/2021 Location: R church Preop diagnosis: Basal cell carcinoma, infiltrative Postop diagnosis: Same Mohs AUC score: 9 Number of stages: 1 Preop size: 1.2 x1.0 cm Postop size: 1.7 x1.5 cm Depth of final defect: adipose Previous dermpath accession #: [id number] Repair type: intermediate Mohs accession #: [id number] [...] eyelids, eyebrows, nose, lips, chin, ear, periauricular, church, genitalia, hands, feet, ankles, nail units and [...] confirmed by the patient. All components of [place] Protocol/PAUSE Rule completed. STAGE I: The patient [...] presence: Present, cleared [facility] CLIA # [id number] Mohs director geophysical laboratory: Mayra Herrera MD REPAIR: Intermediate Primary Surgeon: Kevon Munoz MD Cotton Cleaner: Resident Physician Denny Coyle MD Repair Size: [...] Munoz MD PROCEDURE/MINOR SURG ICAL ORDERABLES * NE CHMSRG MOHS MG TQ H/N/H/F/G EA ADDL STAG, NE CHMSRG MOHS MG TQ H/N/H/F/G 1ST STAG [...] final defect: adipose Previous dermpath accession #: [id number] Repair type: advancement flap Mohs accession #: [...] eyelids, eyebrows, nose, lips, chin, ear, periauricular, church, genitalia, hands, feet, ankles, nail units and [...] confirmed by the patient. All components of [place] Protocol/PAUSE Rule completed. STAGE I: The patient [...] Mohs given the extensive background actinic damage. [facility] Mohs CLIA # [id number] Mohs Drop Wire Aliner: Mayra Herrera MD REPAIR: Burow s Advancement [...] report. I entered the information in our uma information technology DocFlowsheet with the information provided by Dr. 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 All components of [place] Protocol/PAUSE Rule completed. STAGE I: The patient [...] sections examined. No additional histologic findings appreciated. [facility] Mohs CLIA # [id number] Mohs Drop Wire Aliner: Mayra Herrera MD REPAIR: Burow's advancement flap (Repair merged with [id number], see attached procedure note). Dr. Munoz performed the entire surgery, and documentation used to initiate this operative report. I entered the information in our uma information technology DocFlowsheet with the information provided by Dr. Munoz on her handwritten, paper format, surgical worksheet, which was then used to initiate the create of this note. Dr. Munoz then reviewed and edited the note as needed to complete the note. Anabella Adam LPN Kevon Munoz MD PROCEDURE/MINOR SURG ICAL ORDERABLES * NE DESTROY PREMALIG LESION, 1ST LESION (06/26/2021 12:56 PM [facility]) Narrative Clara Montano PA - 06/26/2021 12:56 PM [facility] Clara Montano PA 06/26/2021 12:57 PM Diagnosis [...] Clara WRIGHT PROCEDURE/MINOR SURG ICAL ORDERABLES * NE TANGNTL BX SKIN EA SEP ADDL, NE TANGNTL BX SKIN SINGLE LES (06/26/2021 12:55 PM [facility]) Narrative Clara Monatno PA - 06/26/2021 12:55 PM [facility] Clara Montano PA 06/26/2021 12:56 PM Risks, benefits and alternatives to shave biopsy were discussed with the patient. Verbal consent was obtained. Location: left church, left zygomatic arch, right church Skin prep: Alcohol Anesthesia: 1% lidocaine with [...] Resulting Agency Comment Lab Testing performed at: [facility] [address] [facility] [phone] Arcelia Nobles Olvinmelody SETTER OFF-CHRONOMETER ASSEMBLER AND ADJUSTER LAB - CHEMI STRY ORDERABLES Performing Organization Address City/[facility]/ZIP Co de Phone Number [facility] INSURANCE BILL [address] [place] [address] * LIPID PROFILE (01/27/2021 8:37 AM CDT) [...] Resulting Agency Comment Lab Testing performed at: [facility] [address] [facility] [phone] Arcelia M Jennifer LIRA-CHRONOMETER ASSEMBLER AND ADJUSTER LAB - CHEMI STRY ORDERABLES Performing Organization Address [facility] Co de Phone Number [facility] INSURANCE BILL [address] [place] [address] * NE TANGNTL BX SKIN SINGLE LES (01/04/2021 12:57 [...] Clara WRIGHT PROCEDURE/MINOR SURG ICAL ORDERABLES * NE DESTR MALIG TRUNK,EXTREM 1.1-2 CM (01/04/2021 12:56 PM CDT) Narrative Clara Montano PA - 01/04/2021 12:56 PM CDT Clara Montano PA 01/06/2021 6:30 PM PROCEDURE: Electrodessication and Curettage Risk of bleeding, scarring, infection, and recurrence were discussed with the patient. SURGEON: jo ASSISTANT MAINTENANCE MANAGER SURGEON: DIAGNOSIS: SCCIS Accession# : LOCATION: Right lower leg SIZE OF LESION PRE-OP: 1cm SIZE AFTER FIRST PASS: 1.2cm ANESTHESIA: 1% Lidocaine with epinephrine. DRESSING: Plain Vaseline petroleum jelly and Band-Aid. Wound care instructions were given to the patient. Clara WRIGHT PROCEDURE/MINOR SURG ICAL ORDERABLES * NE TANGNTL BX SKIN SINGLE LES (11/29/2020 3:13 [...] Westley Parham MD - 07/12/2020 Ar[facility]ia Rodriguez APRN-CHRONOMETER ASSEMBLER AND ADJUSTER VASCULAR LA B ORDERABLES * ECHO COMPLETE (07/07/2020 11:10 AM CDT) Anatomical Region Laterality Modality Chest Echo 07/07/2020 9:55 AM CDT Narrative Procedure Note Sherly Melo MD - 07/07/2020 [facility]ia Rodriguez APRN-CHRONOMETER ASSEMBLER AND ADJUSTER ECHOCARDIOG CARA RADIANT * EYE EXAM (07/05/2020) Anatomical Region Laterality Modality Other Narrative 07/05/2020 Ordered by an unspecified provider. Scanned Document SCANNING ONLY * EYE EXAM (2020 4:06 PM [facility]) Anatomical Region Laterality Modality Other Narrative 2020 4:06 PM [facility] Ordered by an unspecified provider. Scanned Document SCANNING ONLY * PT PTT PANEL (06/20/2020 9:22 AM [facility]) INR 1.0 0.9 - 1.2 [facility] INSURANCE [...] BLOOD SPECIMEN / Unknown 06/20/2020 9:22 AM [facility] 06/20/2020 Narrative Resulting Agency Comment Lab Testing performed at: [employer] [phone] Arcelia M Petzchen SETTER OFF-CHRONOMETER ASSEMBLER AND ADJUSTER LAB - COAGU LATION ORDERABLES [facility] INSURANCE BILL [address] [place] [address] * CBC WITH DIFFERENTIAL (06/20/2020 9:22 AM [facility]) Only the most recent of12 resultswithin the [...] BLOOD SPECIMEN / Unknown 06/20/2020 9:22 AM [facility] 06/20/2020 Narrative Resulting Agency Comment [facility] [address] [facility] [phone] Arcelia Rodriguez SETTER OFF-CHRONOMETER ASSEMBLER AND ADJUSTER LAB - HEMAT OLOGY ORDERABLES [facility] INSURANCE BILL [address] [place] [address] * NE DESTRUCT BENIGN LESION, 1-14 (05/30/2020 2:44 PM [facility]) Narrative Clara Montano PA - 05/30/2020 2:44 PM [facility] Clara Montano PA 05/30/2020 3:15 PM Risks, benefits and alternatives to curette distruction were discussed with the patient. Verbal consent was obtained. Location: left chest and left cheek Skin prep: Alcohol Anesthesia: 1% lidocaine with epinephrine Hemostasis: Aluminum chloride Clara WRIGHT PROCEDURE/MINOR SURG ICAL ORDERABLES * NE TANGNTL BX SKIN SINGLE LES (05/30/2020 2:43 PM [facility]) Narrative Clara Montano PA - 05/30/2020 2:43 PM [facility] Clara Montano PA 05/30/2020 3:15 PM Risks, [...] Resulting Agency Comment [facility] [address] [facility] [phone] Arcelia HSAH LAB - CHEMI STRY ORDERABLES [facility] INSURANCE BILL [address] [place] [address] * CARDIAC EKG ORDER (12/01/2019 3:09 PM [...] left L5-S1. Dictated by Samanta Bryan MD (resident assistant). This report was approved by Samanta Bryan [...] left L5-S1. Dictated by Samanta Bryan MD (resident assistant). This report was approved by Samanta Bryan on 09/21/2019 1:54 PM . I, Dr. WILLIAMS BLAIR have personally reviewed and interpreted this examination/study. This report was electronically signed by WILLIAMS BLAIR on 09/21/2019 1:59 PM. Arcelia Rodriguez SETTER OFF-CHRONOMETER ASSEMBLER AND ADJUSTER CT ORDERABL ES * XR LUMBAR SPINE 4VW OR MORE (09/10/2019 11:13 AM CDT) Anatomical Region Laterality Modality Spine Radiographic Cathy ging 09/10/2019 1:10 PM CDT Impressions 09/10/2019 1:23 PM CDT IMPRESSION: Lumbar levoscoliosis, spondylosis, and listhesis. Dictated by Manuel Birmingham M.D. (resident assistant). Dr. CARROLL Moy MD have personally reviewed [...] and listhesis. Dictated by Manuel Birmingham M.D. (resident assistant). I, Dr. CARROLL WORLEY MD have personally reviewed and interpreted this examination/study. This report was electronically signed by CARROLL WORLEY MD on09/10/2019 1:23 PM . Arcelia Rodriguez SETTER OFF-CHRONOMETER ASSEMBLER AND ADJUSTER DIAGNOSTIC IMAGING ORDERABLES * PROC THERAPEUTIC INJECTION CARPAL TUNNEL (06/26/2019) Narrative Armando Heaton MD - 06/26/2019 0.8 cc Kenalog-40 and 0.2 cc 0.5% Marcaine injected without complication left wrist. I performed the procedure myself patient tolerated the procedure well. Armando Heaton MD PROCEDURE/MINOR SURG ICAL ORDERABLES * NE TANGNTL BX SKIN SINGLE LES (05/29/2019 10:36 AM [facility]) Narrative Clara Montano PA - 05/29/2019 10:36 AM [facility] Clara Montano PA 06/02/2019 10:36 AM Risks, benefits and alternatives to shave biopsy were discussed with the patient. Verbal consent was obtained. Location: left jaw line Skin prep: Alcohol Anesthesia: 1% lidocaine with epinephrine Hemostasis: Aluminum chloride Dressing and wound care discussed. Patient agrees to phone call for results and message if not available. Yes Clara WRIGHT PROCEDURE/MINOR SURG ICAL ORDERABLES * NE DESTROY PREMALIG LESION, 2-14, NE DESTROY PREMALIG LESION, 1ST LESION (05/29/2019 10:35 AM LAST TURNER) Clara Christopher PA - 05/29/2019 10:35 AM LAST TURNER Clara Montano PA 05/29/2019 10:36 AM Diagnosis and treatment options discussed. Cryotherapy (Liquid Nitrogen) to 3 facial lesions for 5 seconds each. Number of cycles: 1. Wound care reviewed. Clara WRIGHT PROCEDURE/MINOR SURG ICAL ORDERABLES * NE DESTRUCT BENIGN LESION, 1-14 (05/29/2019 10:35 AM LAST TURNER) Clara Christopher PA - 05/29/2019 10:35 AM LAST TURNER Clara Montano PA 06/02/2019 10:36 AM Diagnosis and treatment options discussed. Cryotherapy (Liquid Nitrogen) to 3 facial lesions for 5-7 seconds each. Number of cycles: 1. Wound care reviewed. Clara WRIGHT PROCEDURE/MINOR SURG ICAL ORDERABLES * (ABNORMAL) STREP A SCREEN - POINT OF CARE (AMB) STL (04/01/2019) Strep A Rapid POCT Positive(A) Negative Strep A Internal Control Present Lot # [id number] Expiration Date 07/20/2020 Throat ENTIRE THROAT (SURFACE REGION OF NECK) / Unknown 04/01/2019 Ben Dean SETTER OFF-CHRONOMETER ASSEMBLER AND ADJUSTER LAB - POINT OF CARE ORDERABLES * NE LARYNGOSCOPY,FLEX FIBER,DIAGNOSTIC (03/03/2019 12:28 PM LAST TURNER) Narrative Angel Rodriguez MD - 03/03/2019 12:28 PM LAST TURNER Woody Mccauley MD 03/03/2019 2:43 PM Procedure Note Endoscopy Type: Laryngoscopy without stroboscopy 44799 Endoscope: Flexible 4mm Scope Anesthesia: Lidocaine 2% [...] Mccauley MD PROCEDURE/MINOR SURG ICAL ORDERABLES * NE DESTRUCT BENIGN LESION, 1-14 (11/25/2018 10:10 AM [...] Resulting Agency Comment Lab Testing performed at: [facility] [place] [id number] [facility] [phone] Arcelia Rodriguez SETTER OFF-CHRONOMETER ASSEMBLER AND ADJUSTER LAB - CHEMI STRY ORDERABLES [facility] INSURANCE BILL [address] [place] [address] * IMAGING/RADIOLOGY/XRAY RESULTS ORDER (06/16/2018 6:17 AM LAST TURNER) Only the most recent of2 resultswithin the time period is included. Anatomical Region Laterality Modality Other Narrative 06/16/2018 6:17 AM LAST TURNER Ordered by an unspecified provider. Scanned Document IMAGING * PROC THERAPEUTIC INJECTION CARPAL TUNNEL (06/13/2018) Narrative Armando Heaton MD - 06/13/2018 0.8 cc Kenalog-40 and 0.2 cc 0.5% Marcaine injected without complication into the left wrist so he'll tissues adjacent to the median nerve. I performed the procedure myself she tolerated the procedure well. Armando Heaton MD PROCEDURE/MINOR SURG ICAL ORDERABLES * NE DESTRUCT BENIGN LESION, 1-14 (06/03/2018 12:19 PM LAST TURNER) Narrative Clara Montano PA - 06/03/2018 12:19 PM LAST TURNER Clara Montano PA 06/03/2018 12:19 PM PROCEDURE: [...] CULTURE FUNGUS OTHER+FUNGUS SMEAR (06/03/2018 12:00 AM LAST TURNER) Fungus Stain Final report [facility] INSURANCE BILL Result 1 [facility] INSURANCE BILL Comment:ROSALIE/Calcofluor prepa ration: no fungus observed. Fungus Culture Final report [facility] INSURANCE BILL Result 1 [facility] INSURANCE BILL Comment:No yeast or mold iso lated after 4 weeks. Microbiology ENTIRE SCALP / Unknown 06/03/2018 06/03/2018 Narrative Resulting Agency Comment [facility] [place] [address] [facility] [phone] Clara WRIGHT LAB - MICROBIOLOGY O RDERABLES [facility] INSURANCE BILL [address] [place] [address] * BONE DENSITY AXIAL SKELETON(1OR MORE SITES)[id number] (01/03/2018 8:29 AM CDT) Anatomical Region Laterality Modality Mammography 01/03/2018 2:20 PM CDT Narrative 01/03/2018 4:35 PM CDT Examination: Dual energy x-ray absorptiometry of the lumbar spine and hip. Clinical Indication: 77-year-old postmenopausal female Findings: Detailed data from the exam is sent separately to the ordering physician and is also available on [email or web address], the Radiology Department's computerized picture archive system. [...] ordering physician and is also available on [email or web address], the Radiology Department's computerized picture archive system. [...] D.O. on01/03/2018 4:35 PM . Arcelia Rodriguez APRN-CHRONOMETER ASSEMBLER AND ADJUSTER DEXA ORDERA BLES * MAMMO BILAT SCREENING [...] best possible images were obtained. Arcelia Rodriguez SETTER OFF-CHRONOMETER ASSEMBLER AND ADJUSTER MAMMO ORDER CHANTAL * COMPLETE PFT W/WO BRONCHODILATOR (11/20/2017 1:44 PM CDT) Impressions Inocente Sanchez MD - 11/20/2017 1:44 PM CDT [facility] DEPARTMENT OF PULMONARY, CRITICAL CARE, AND SLEEP [...] of Pulmonary, Critical Care, & Sleep Medicine [facility] I have reviewed this study and agree with the interpretation by the Assistant Professor Of German. Inocente Sanchez M.D. Drophammer Operator of Internal Medicine Division of Pulmonary, Critical Care and Sleep Medicine [facility] [employer] Narrative Inocente Sanchez MD - 11/20/2017 1:44 PM CDT Jennifer Johnson MD 11/05/2017 12:50 PM Arcelia Rodriguez APRN-CHRONOMETER ASSEMBLER AND ADJUSTER RESPIRATORY THERAPY ORDERABLES * XR CHEST 2VW (10/25/2017 12:49 PM CDT) Anatomical Region Laterality Modality Chest Radiographic Cathy ging 10/25/2017 1:12 PM CDT Impressions 10/25/2017 2:18 PM CDT IMPRESSION: No acute pulmonary process. Dictated by aNga Gardner MD (resident assistant). Dr. CARROLL Moy MD have personally reviewed [...] pulmonary process. Dictated by Naga Gardner MD (resident assistant). Dr. CARROLL Moy MD have personally reviewed and interpreted this examination/study. This report was electronically signed by CARROLL WORLEY MD on10/25/2017 2:18 PM . Arcelia Rodriguez SETTER OFF-CHRONOMETER ASSEMBLER AND ADJUSTER DIAGNOSTIC IMAGING ORDERABLES * HEPATITIS B CORE ANTIBODY (10/24/2017 9:00 AM CDT) Hepatitis B Core Virus Antibody Total Negative Negative [facility] INSURANCE BILL Blood BLOOD SPECIMEN / Unknown 10/24/2017 9:00 AM CDT 10/24/2017 Narrative Resulting Agency Comment [facility] [place] [id number] [facility] [phone] Clara WRIGHT LAB - CHEMISTRY ALBER NOLAN [facility] INSURANCE BILL [address] [place] [address] * HEPATITIS C ANTIBODY (10/24/2017 9:00 AM CDT) Hepatitis C Antibody <0.1 0.0 - 0.9 s/co ratio [facility] INSURANCE BILL Comment: Negative: < 0.8 Indeterminate: 0.8 - 0.9 Positive: > 0.9 . The CDC recommends that a positive HCV antibody result be followed up with a HCV Nucleic Acid Amplification test (183075). Blood BLOOD SPECIMEN / Unknown 10/24/2017 9:00 AM CDT 10/24/2017 Narrative Resulting Agency Comment [facility] [address] [facility] [id number] Clara WRIGHT LAB - CHEMISTRY ORDE RABVERONA Performing Organization Address [facility] de Phone Number [facility] INSURANCE BILL [address] [place] [address] * HEPATITIS B SURFACE ANTIGEN W RFLX CONFIRMATION (10/24/2017 8:58 AM CDT) Hepatitis B Virus Surface Antigen Negative Negative [facility] INSURANCE BILL Blood BLOOD SPECIMEN / Unknown 10/24/2017 8:58 AM CDT 10/24/2017 Narrative Resulting Agency Comment [facility] [address] [facility] [phone] Clara WRIGHT LAB - CHEMISTRY ORDE RABVERONA Performing Organization Address [facility] de Phone Number [facility] INSURANCE BILL [address] [place] [address] * EKG 12-LEAD (04/23/2017) Narrative [facility] - 04/23/2017 12:00 AM LAST TURNER EKG--Rate 50 on EKG--RBBB. NSR. Procedure Note ProviderLeno MD - 09/27/2017 EKG--Rate 50 on EKG--RBBB. NSR. Arcelia Rodriguez SETTER OFF-CHRONOMETER ASSEMBLER AND ADJUSTER ECG ORDERAB LES [facility] * URINALYSIS MICROSCOPIC ONLY REFLEXED (04/01/2017 8:46 AM LAST TURNER) Only the most recent of3 resultswithin the time period is included. Pathologist [facility] WBC, UA 0-5 0 - 5 /hpf [facility] ([facility]) RBC UA 0-2 0 - 2 /hpf [facility] ([facility]) Epithelial Cells (non renal) 0-10 0 - 10 /hpf [facility] ([facility]) Mucus UA Present Not Estab. [facility] ([facility]) Bacteria UA Few None seen/Few [facility] ([facility]) 04/01/2017 8:46 AM LAST TURNER 04/01/2017 Narrative [facility] ([facility]) - 04/02/2017 7:13 AM LAST TURNER Performed at: [facility] [address] [place] [id number] Material Clerk: Arya Ventura PhD, Phone: [phone] Arcelia Rodriguez SETTER OFF-CHRONOMETER ASSEMBLER AND ADJUSTER LAB - URINA LYSIS ORDERABLES [facility] ([facility]) [address] [place] [address], [facility] * (ABNORMAL) URINALYSIS REFLEX TO MICROSCOPIC NO CULTURE (04/01/2017 8:46 AM LAST TURNER) Only the most recent of3 resultswithin the time period is included. Pathologist [facility] Specific Rigby 1.017 1.005 - 1.030 [facility] ([facility]) pH Urine 5.5 5.0 - 7.5 [facility] ([facility]) Color UA Yellow Yellow [facility] ([facility]) Appearance Clear Clear [facility] ([facility]) Leukocyte Esterase 1+(A) Negative [facility] ([facility]) Protein UA Negative Negative/Tra ce [facility] ([facility]) Glucose UA Negative Negative [facility] ([facility]) Ketone UA Negative Negative [facility] ([facility]) Blood UA Negative Negative [facility] ([facility]) Bilirubin Negative Negative [facility] ([facility]) Urobilinogen Semi-Qn 0.2 0.2 - 1.0 mg/dL [facility] ([facility]) Nitrite UA Negative Negative [facility] ([facility]) Microscopic Examination See below: [facility] ([facility]) Comment:Microscopic was cooper cated and was performed. Urine specimen (specimen) URINE SPECIMEN OBTAINED BY CLEAN CATCH PROCEDURE / Unknown 04/01/2017 8:46 AM LAST TURNER 04/01/2017 Narrative [facility] ([facility]) - 04/02/2017 7:13 AM LAST TURNER Performed at: [address] [id number] Material Clerk: Arya Ventura PhD, Phone: [phone] Arcelia Rodriguez SETTER OFF-CHRONOMETER ASSEMBLER AND ADJUSTER LAB - URINA LYSIS ORDERABLES [facility] ([facility]) [address] [place] [address], [facility] * CBC W/O DIFFERENTIAL (04/01/2017 8:46 AM LAST TURNER) Only the most recent of4 resultswithin the time period is included. WBC 6.8 3.4 - 10.8 x10E3/uL [facility] ([facility]) RBC 4.33 3.77 - 5.28 x10E6/uL [facility] ([facility]) Hemoglobin 14.2 11.1 - 15.9 g/dL [facility] ([facility]) Comment:Please note refere nce interval change Hematocrit 41.6 34.0 - 46.6 % [facility] ([facility]) MCV 96 79 - 97 fL [facility] ([facility]) MCH 32.8 26.6 - 33.0 pg [facility] ([facility]) MCHC 34.1 31.5 - 35.7 g/dL [facility] ([facility]) RDW-CV 13.7 12.3 - 15.4 % [facility] ([facility]) Platelet 311 150 - 379 x10E3/uL [facility] ([facility]) Blood specimen (specimen) BLOOD SPECIMEN / Unknown 04/01/2017 8:46 AM LAST TURNER 04/01/2017 Narrative [facility] ([facility]) - 04/02/2017 7:13 AM LAST TURNER Performed at: Lab[address], [place] [id number] Material Clerk: Arya Ventura PhD, Phone: [phone] Arcelia Rodriguez SETTER OFF-CHRONOMETER ASSEMBLER AND ADJUSTER LAB - HEMAT OLOGY ORDERABLES [facility]) [address] [place] [address], [facility] * PATHOLOGY TISSUE (02/16/2016 9:26 AM CDT) Pathologist [facility] Surgical Pathology Tissue ACCESSION No: [id number] CLINICAL HISTORY: Colonoscopy O/E diverticulosis, internal and [...] DESCRIPTION: Microscopic findings support the final diagnosis. CNC LATHE MACHINE OPERATOR/public health advisor The performance characteristics of all immunohistochemical and indirect immunofluorescence stains (if any) cited in this report were determined by the Histopathology Laboratory of [facility]. Some of these tests were developed [...] by Rivka Leon MD. Electronically signed 02/17/2016 [facility] PATHOLOGY LAB ([facility]) Other (qualifier value) 02/16/2016 9:26 AM CDT 02/16/2016 10:45 AM CDT Narrative [facility] PATHOLOGY LAB ([facility]) - 02/17/2016 2:17 PM CDT PRE-OP DIAGNOSIS: [...] Hood MD LAB - PATHOLOGY/CYTO LOGY ORDERABLES [facility] PATHOLOGY LAB ([facility]) * VAS LEFT VENOUS DUPLEX LE (10/17/2015 1:29 PM CDT) Anatomical Region Laterality Modality Lower Extremity, Upper Extremity Other Arcelia Rodriguez SETTER OFF-CHRONOMETER ASSEMBLER AND ADJUSTER VASCULAR LA B ORDERABLES * XR KNEE LEFT 4VW OR MORE (10/13/2015 4:42 PM CDT) Anatomical Region Laterality Modality Lower Extremity Other Impressions 10/14/2015 8:27 AM CDT IMPRESSION: Mild medial and patellofemoral joint osteoarthritis. Dictated by Naga Gardner MD (resident assistant). I, Dr. PALLAVI SY M.D. have personally [...] joint osteoarthritis. Dictated by Naga Gardner MD (resident assistant). I, Dr. PALLAVI SY M.D. have personally reviewed and interpreted thisexamination/study. This report was electronically signed by PALLAVI SY M.D. on 10/14/20158:27 AM . Arcelia Rodriguez SETTER OFF-[facility] DIAGNOSTIC IMAGING ORDERABLES * VITAMIN D 25-HYDROXY (10/05/2015 7:40 AM CDT) Only the most recent of2 resultswithin the time period is included. Vitamin D, 25 Hydroxy 37.8 30.0 - 100.0 ng/mL [facility] Comment: Vitamin D deficiency has been defined by the [place] of Medicine and an Endocrine Society practice guideline as a level of serum 25-OH vitamin D less than 20 ng/mL (1,2). The Endocrine Society went on to further define vitamin D insufficiency as a level between 21 and 29 ng/mL (2). 1. IOM ([place] of Medicine). 2010. Dietary reference intakes for calcium and D. [place]: The National Academies Press. 2. Chary MF, Shanta NC, Hamzah ALEJANDRA, et al. Evaluation, treatment, and prevention of vitamin D deficiency: an Endocrine Society clinical practice guideline. JCEM. 2010; 96(3):1911-30. Blood specimen (specimen) BLOOD SPECIMEN / Unknown 10/05/2015 7:40 AM CDT 10/05/2015 12:27 PM CDT Narrative [facility] ([facility]) - 10/06/2015 7:16 AM CDT Performed at: [address] [place] [id number] Material Clerk: Arya Ventura PhD, Phone: [phone] Arcelia Rodriguez SETTER OFF-CHRONOMETER ASSEMBLER AND ADJUSTER LAB - CHEMI STRY ORDERABLES Performing Organization Address City/State/[facility] Co de Phone Number [facility] KALYANI) * US BREAST UNILATERAL LEFT (03/03/2012 11:56 AM LAST TURNER) Only the most recent of3 resultswithin the time period is included. Anatomical Region Laterality Modality Breast Left Ultrasound 03/03/2012 12:0 1 PM LAST TURNER Narrative 03/03/2012 12:01 PM LAST TURNER EXAMINATION: Bilateral digital diagnostic mammogram and left [...] DIG IMAGE BILATERAL [id number] (03/03/2012 11:51 AM LAST TURNER) Anatomical Region Laterality Modality Bilateral Mammography 03/03/2012 12:0 1 PM LAST TURNER Narrative 03/03/2012 12:01 PM LAST TURNER EXAMINATION: Bilateral digital diagnostic mammogram and left [...] GERMAN DIAG DIRECT DIG IMAGE UNI LEFT [id number] (09/04/2011 10:06 AM CDT) Only the most [...] diagnostic left breast ultrasound in [address] [facility] [place] utilizes [employer] as a reminder system to notify patients [...] diagnostic left breast ultrasound in [address] [facility] [place] utilizes [employer] as a reminder system to notify patients of their next recommended mammogram. Louis Villasenor MD MAMMO ORDERABLES * PAP IG RFLX HPV ASCU (03/21/2011) 03/21/2011 Narrative [facility] - 03/23/2011 11:50 AM LAST TURNER Preferred Lab:->OTHER EXTERNAL LAB Abigail Montgomery SETTER OFF-CHRONOMETER ASSEMBLER AND ADJUSTER LAB - PATHO LOGY/CYTOLOGY ORDERABLES Performing Organization Address [facility] Co de Phone Number [facility] * LAB HISTORICAL RESULTS-ONBASE (06/01/2010) Only the most recent of11 resultswithin the time period is included. 06/01/2010 Historical Provider LAB - CHEMISTRY O RDERABLES Performing Organization Address [facility] de Phone Number [facility] * ECHO STRESS TEST W DOBUTAMINE (05/26/2010 12:02 PM LAST TURNER) Anatomical Region Laterality Modality Other Narrative 05/26/2010 12:02 PM LAST TURNER STRESS ECHO TEST REPORT NAME: Ling Kebede : 1940 AGE: 69 y.o. SEX: female Referring Physician: Louis Gómez [facility] [address] [place] [address] Ordering Physician: Louis Gómez M.D. Date of Test: 05.26.10 TAPE#: digital Tentering Machine Feeder: dls Height: 5' 6 (167.6 cm) Weight: [...] SEX: female Referring Physician: Louis Gómez [address] [place] [address] Ordering Physician: Louis Gómez M.D. Date of Test: 05.26.10 TAPE#: digital Tentering Machine Feeder: darrell Height: 5' 6 (167.6 cm) Weight: [...] Reading Physician:Vic Chavira Jr, DO Arcelia Rodriguez APRN-[facility] ECHOCARDIOG CARA BIG FLAT * PATHOLOGY/GENETICS HISTORICAL-ONBASE (05/06/2010) Only the most recent of7 resultswithin the time period is included. 05/06/2010 Historical Provider LAB - CHEMISTRY O RDERABLES Performing Organization Address City/[facility] Co de Phone Number [facility] * ERYTHROCYTE SEDIMENTATION RATE (06/14/2008 8:16 AM LAST TURNER) Erythrocyte Sedimentation Rate 12 0 - 20 MM/HR [facility] 06/14/2008 8:16 AM LAST TURNER 06/14/2008 8:31 AM LAST TURNER Louis Gómez MD LAB - HEMATOLOGY ORD ERABLES [address] [phone] * VITAMIN B12 (06/14/2008 8:16 AM LAST TURNER) Vitamin B12 432 239 - 931 pg/mL [facility] Venous blood specimen (specimen) 06/14/2008 8:16 AM LAST TURNER 06/14/2008 8:31 AM LAST TURNER Narrative [facility] - 06/15/2008 9:39 AM LAST TURNER Preferred Lab:->[facility] LAB Louis Gómez MD LAB - CHEMISTRY ALBER JOSHUAVERONA Performing Organization Address City/[facility]/ZIP Co de Phone Number [facility] [address] [phone] * OCCULT BLOOD FECES 3 - POCT (AMB) [facility] (04/22/1998 12:00 AM LAST TURNER) Occult Blood neg [facility] Occult Blood neg [facility] Occult Blood neg [facility] Occult Blood neg [facility] Occult Blood neg [facility] Stool specimen (specimen) 04/22/1998 Arcelia Rodriguez SETTER OFF-CHRONOMETER ASSEMBLER AND ADJUSTER LAB - POINT OF CARE ORDERABLES Performing Organization Address [facility] Co de Phone Number [facility] * (ABNORMAL) PAP SMEAR 1 SLIDE (04/22/1998 12:00 AM LAST TURNER) HM Pap Smear Per pt: Negative [facility] Other (qualifier value) 04/22/1998 Narrative [facility] - 04/22/1998 12:00 AM LAST TURNER This external order was created through the Results Console. Historical Provider LAB - PATHOLOGY/C YTOLOGY ORDERABLES Performing Organization Address City/[facility] Co de Phone Number [facility] Care Teams Precision Honing Machine Operator Relationship Specialty Start Date End Date Pankaj Braun MD [facility] [address] [place] [address] PCP - General Family Medicine 12/25/22 Mayra Smith RN Care Community Chest Officer 11/25/19
--- OUTSIDE RECORDS SUMMARY | 2024-06-08 18:48 | XMS_ITS | Clinical Summary ---
Author Organization [facility] Address [address] [place] [address] Care Team Providers Care Manager Creative Name Role Phone Mayra Smith RN Unavailable Unavailable Pankaj Braun MD Primary Care Provider Source Comments [facility],non-owned Affiliates and Associated Physician Practices is amultiple site organization consisting of ambulatory clinics and hospital sitesin [place], [place], [place] and [place]. This disclosure is being madepursuant to the Care Everywhere program and may not contain all information available regarding this patient. Last updated 18.[facility] Allergies Active Allergy Reactions Criticality Noted Date Comments Contrast-Iodinated Agents Fo r Ct/Other Shortness of Breath High 01/08/2024 Medications * Be aware that medications may not be up to date on this document. Always verify current medications with the patient. Medication Sig Dispensed Refills Start Date End Date Status Cholecalciferol (VITAMIN D3) 85208 UNITS TABS Take 1 (one) tablet by [...] MG capsule 09/11/2022 Active Cholecalciferol 250 MCG (10375 UT) TABS Take 1 (one) tablet by [...] Followed in Retinal Clinic in [facility] Closed head injury 11/21/2020 Subdural hematoma 11/21/2020 Pain in right hip 03/21/2020 Low back pain 01/06/2020 Muscle weakness (generalized) 01/06/2020 Pain management contract signed--11/201911/23/19 Spinal stenosis of lumbar region 10/07/2019 Seborrheic keratoses, inflamed 06/03/2018 Assessment & Plan (05/30/2020 2:41 PM UNDERWRITING TECHNICIAN): Destruction of large SK left cheek and [...] scalp Assessment & Plan (05/30/2020 2:40 PM UNDERWRITING TECHNICIAN): Scalp Recent flare post back surgery has calmed down Fluocinolone oil prn Betamethasone lotion dovonex solution History of skin cancer in adulthood 10/16/2017 Assessment & Plan (11/29/2020 3:03 PM CDT): No evidence of reoccurrence on exam today Self exams Photoprotection including SPF 30+ daily Assessment & Plan (05/30/2020 2:39 PM UNDERWRITING TECHNICIAN): NER Skin exams Photoprotection 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) 10/16/2017 Assessment & Plan (11/29/2020 3:04 PM CDT): No evidence of reoccurrence on exam today Self exams Photoprotection including SPF 30+ daily Assessment & Plan (05/30/2020 2:39 PM UNDERWRITING TECHNICIAN): NER Skin exams photoprotection Non-toxic nodular goiter [...] Department Care Team Description 05/15/2024 10:00 AM UNDERWRITING TECHNICIAN Office Visit [facility] - Dermatology [address] [place] [address] [phone] Clara Montano, PA Neoplasm of uncertain behavior of skin (Primary Dx); Seborrheic keratoses 05/15/2024 Travel from Last 3 Months Immunizations Name Administration Dates Next Due INFLUENZA VACCINE, TRIV. (AF LURIA, FLUZONE TRIVALENT; 6MO+) (IIV3) 01/26/2016,12/23/2010,03/28/2010 Covid Orckestra primary monoval ent 12+ yr 0.3mL Purple [...] Visit [facility] - Dermatology [address] [place] [address] [address] Loja MD [facility] [place] [address] Health Maintenance Due Date Last Done Comments [...] Procedure Name Priority Date/Time Associated Diagnosis Comments MS DESTRUCT BENIGN LESION, 1-14 Routine 05/15/2024 10:35 AM UNDERWRITING TECHNICIAN Seborrheic keratoses MS TANGNTL BX SKIN SINGLE LES Routine 05/15/2024 10:35 AM UNDERWRITING TECHNICIAN Neoplasm of uncertain behavior of skin DERMATOPATHOLOGY Routine 05/15/2024 12:0 0 AM UNDERWRITING TECHNICIAN Neoplasm of uncertain behavior of skin DEXA BONE DENSITY AXIAL SKELETON Routine 01/03/2018 8:29 AM CDT Post-menopause Healthcare maintenance from Last 3 Months or Most Recently Relevant to Health Maintenance Results * MS DESTRUCT BENIGN LESION, 1-14 (05/15/2024 10:35 AM UNDERWRITING TECHNICIAN) Narrative Clara Montano PA - 05/15/2024 10:35 AM UNDERWRITING TECHNICIAN Clara Montano PA 05/15/2024 5:22 PM Derm [...] Clara WRIGHT PROCEDURE/MINOR SURG ICAL ORDERABLES * MS TANGNTL BX SKIN SINGLE LES (05/15/2024 10:35 AM UNDERWRITING TECHNICIAN) Narrative Clara Montano PA - 05/15/2024 10:35 AM UNDERWRITING TECHNICIAN Clara Montano PA 05/15/2024 5:22 PM Derm [...] (Specimen Count = 1) (05/15/2024 12:00 AM UNDERWRITING TECHNICIAN) Case Report Dermatopathology Report Case: [id number] Authorizing Provider: Clara Montano PA Collected: 05/15/2024 12:00 AM Ordering Location: [facility] - Received: 05/18/2024 06:07 AM Dermatology Pathologist: Mallorie Davis MD Specimen: Skin, left brow 6:13 PM [facility] Final Diagnosis Specimen A. 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 The specimen consists of a shave biopsy measuring 6x5x1 mm. Jar 0. 6:13 PM [facility] Microscopic Description Specimen A. SKIN, left brow: Sections show a perifollicular lymphohistiocytic infiltrate. Additional deeper sections were obtained and reviewed. 6:13 PM [facility] Disclaimer An external and internal positive and negative controls are appropriate for the histochemical, immunohistochemical and immunofluorescence stain(s) in this case (if any), except where stated explicitly. The performance characteristics of the stain(s) cited in this report were developed and its performance characteristic determined by the Dermatopathology Laboratory at [facility], directed by Dr. Yoli Davis. These tests need not be, and therefore are not, approved by the [place] Food and Drug Administration. The tests are used for clinical purposes. Billing Codes Specimen Charges Stain Charges 90975 1 6:13 PM [facility] Embedded Images 6:13 PM [facility] Pathology/Cytolog y TISSUE SPECIMEN FROM SKIN / Unknown 05/15/2024 05/18/2024 6:07 AM UNDERWRITING TECHNICIAN Clara [facility] - PATHOLOGY/CYTO LOGY ORDERABLES DERMATOPATHOLOGY LABORATORY [facility] Department of Dermatology [address] [phone] * BONE DENSITY AXIAL SKELETON(1OR MORE SITES)[id number] (01/03/2018 8:29 AM CDT) Anatomical Region Laterality Modality Mammography 01/03/2018 2:20 PM CDT Narrative 01/03/2018 4:35 PM CDT Examination: Dual energy x-ray absorptiometry of the lumbar spine and hip. Clinical Indication: 77-year-old postmenopausal female Findings: Detailed data from the exam is sent separately to the ordering physician and is also available on [employer], the Radiology Department's computerized picture archive [...] ordering physician and is also available on [employer], the Radiology Department's computerized picture archive [...] D.O. on01/03/2018 4:35 PM . Arcelia Rodriguez [employer] OFFIC[employer]INE ASSEMBLER DEXA ORDERA BLES from Last 3 Months or Most Recently Relevant to Health Maintenance Care Teams Manager Creative Relationship Specialty Start Date End Date Pankaj Braun MD [address] [place] [address] PCP - General Family Medicine 12/25/22 Mayra Smith welt beaterManager Local 11/25/19
--- OUTSIDE RECORDS SUMMARY | 2024-06-08 18:48 | XMS_ITS ---
Author Organization [facility] Address [address] 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): Destruction of large SK left cheek and [...] scalp Assessment & Plan (05/30/2020 2:40 PM WRAPPING MACHINE TENDER): Scalp Recent flare post back surgery has calmed down Fluocinolone oil prn Betamethasone lotion dovonex solution History of skin cancer in adulthood 10/16/2017 Assessment & Plan (11/29/2020 3:03 PM CDT): No evidence of reoccurrence on exam today Self exams Photoprotection including SPF 30+ daily Assessment & Plan (05/30/2020 2:39 PM WRAPPING MACHINE TENDER): NER Skin exams Photoprotection 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 Treatments may have been administered in [...]
[2024-06-08 19:38] VITALS: BP 138/76; PULSE 83; RESP 16; O2SAT 100
== END 2024-06-08 19:38 | disposition home or self-care (01) ==
PROVIDERS: Emergency Provider Emergency Medicine
DX: R42 Dizziness and giddiness (principal); H61.23 Impacted cerumen, bilateral
CPT/HCPCS: 99283